=== PATIENT | male | born 1950 | race Caucasian/White ===

== ENCOUNTER → 2016-05-13 | Outpatient (REF) | payer MEDICARE, OTHER ==
[~2016-05-13] MED LIST: CALCTAB68 PO; CEPH2CAP PO; DILA100C PO; LISI20TA PO; LISINOPRIL-HCTZ PO; MULTTAB4 PO; NAPR500T2 PO; TRAV0.00 OU; ZEST20TA8 PO
[2016-05-13 14:53] LABS: MEAN CORPUSCULAR HEMOGLOBIN 32.5 pg (27.0-33.0); MEAN CORPUSCULAR HGB CONC 34.7 g/dl (32.0-36.5); MEAN CORPUSCULAR VOLUME 93.6 fl (80.0-96.0); RED CELL DISTRIBUTION WIDTH 11.6 % (11.5-14.5); WHITE BLOOD COUNT 12.6 K/mm3 (4.0-10.0)
[2016-05-13 15:06] LABS: ALBUMIN 3.4 GM/DL (3.2-5.2); ALBUMIN/GLOBULIN RATIO 0.92 (1.00-1.93); ALKALINE PHOSPHATASE 52 U/L (45-117); ALT/SGPT 25 U/L (12-78); ANION GAP 13 MEQ/L (8-16); AST/SGOT 26 U/L (15-37); BILIRUBIN,TOTAL 0.5 MG/DL (0.2-1.0); BLOOD UREA NITROGEN 51 MG/DL (7-18); CALCIUM LEVEL 9.1 MG/DL (8.8-10.2); CARBON DIOXIDE LEVEL 27 MEQ/L (21-32); CHLORIDE LEVEL 101 MEQ/L (98-107); CREATININE FOR GFR 1.09 MG/DL (0.70-1.30); GLOMERULAR FILTRATION RATE > 60.0 (>49); GLUCOSE, FASTING 86 MG/DL (80-110); POTASSIUM SERUM 4.1 MEQ/L (3.5-5.1); SODIUM LEVEL 141 MEQ/L (136-145); TOTAL PROTEIN 7.1 GM/DL (6.4-8.2)
== END ==
LOC: M SFHCPLAZ 14:42
PROVIDERS: ATTEND Nurse Practitioner Adult Health
DX: I50.30 Unspecified diastolic (congestive) heart failure (principal)

== ENCOUNTER → 2016-07-21 | Outpatient (REF) | payer MEDICARE, OTHER ==
[~2016-07-21] MED LIST changes: +COUM1TAB17 PO; +LOVE0.8I SC
[2016-07-21 19:58] LABS: ALBUMIN 3.7 GM/DL (3.2-5.2); ALKALINE PHOSPHATASE 58 U/L (45-117); ALT/SGPT 26 U/L (12-78); ANION GAP 7 MEQ/L (8-16); AST/SGOT 20 U/L (15-37); BILIRUBIN,TOTAL 0.5 MG/DL (0.2-1.0); BLOOD UREA NITROGEN 38 MG/DL (7-18); CARBON DIOXIDE LEVEL 28 MEQ/L (21-32); CHLORIDE LEVEL 101 MEQ/L (98-107); CREATININE FOR GFR 0.96 MG/DL (0.70-1.30); GLOMERULAR FILTRATION RATE > 60.0 (>49); GLUCOSE, FASTING 90 MG/DL (80-110); MAGNESIUM LEVEL 2.7 MG/DL (1.8-2.4); POTASSIUM SERUM 4.4 MEQ/L (3.5-5.1); SODIUM LEVEL 136 MEQ/L (136-145); TOTAL PROTEIN 7.4 GM/DL (6.4-8.2)
== END ==
LOC: M SFHCPLAZ 14:23
PROVIDERS: ATTEND Internal Medicine
DX: I10 Essential (primary) hypertension (principal)
CPT/HCPCS: 36415; 80053; 83735; G0463

== ENCOUNTER → 2016-08-09 | Outpatient (CLI) | payer MEDICARE, OTHER ==
--- NOTE | 2016-08-09 12:54 | REP ---
LEFT LOWER EXTREMITY DUPLEX DOPPLER VENOUS ULTRASOUND WITH EVALUATION FOR VENOUS REFLUX: Real-time compression and duplex Doppler evaluation of left lower extremity deep vein system is performed. Left common femoral, superficial femoral, and popliteal veins are fully compressible with transducer pressure and demonstrate normal spontaneous and phasic flow without evidence of deep venous thrombosis. Evaluation for venous reflux in the left lower extremity is performed. Small amount of reflux is seen in the left common femoral vein. There is an anterior accessory greater saphenous vein present without reflux. There is minimal reflux in the greater saphenous vein at the saphenofemoral junction with inspiration, AP diameter of that vessel 4 mm. No reflux is seen in the greater saphenous vein at the mid thigh level or at the knee, diameter at both of those levels 5 mm. There is no reflux in the superficial femoral vein, popliteal vein, or lesser saphenous vein. Less saphenous vein measures 5 mm. Signed by Jeff Corrales MD 08/09/2016 05:12 P
== END ==
LOC: M RAD 10:40
PROVIDERS: ATTEND Surgery
DX: I87.311 Chronic venous hypertension (idiopathic) with ulcer of right lower extremity (principal)

== ENCOUNTER 2016-08-11 13:32 | Emergency (ER) | payer MEDICARE, OTHER ==
[~2016-08-11] VITALS: Ht 170.2 cm; Wt 115.0 kg
[~2016-08-11 13:32] MED LIST changes: -COUM1TAB17 PO; -LOVE0.8I SC
[2016-08-11 16:18] LABS: BASO % 0.7 % (0.0-1.0); EOS # 0.4 K/mm3 (0.0-0.50); EOS % 5.5 % (0.0-3.0); LARGE UNSTAINED CELL # 0.1 K/mm3 (0.0-0.4); LARGE UNSTAINED CELL % 1.8 % (0.0-4.0); LYMPH # 1.1 K/mm3 (1.5-4.5); LYMPH % 14.6 % (24.0-44.0); MEAN CORPUSCULAR HEMOGLOBIN 33.1 pg (27.0-33.0); MEAN CORPUSCULAR HGB CONC 35.2 g/dl (32.0-36.5); MEAN CORPUSCULAR VOLUME 93.9 fl (80.0-96.0); MONO # 0.6 K/mm3 (0.0-0.8); MONO % 8.7 % (0.0-5.0); NEUTROPHILS # 4.7 K/mm3 (1.8-7.7); NEUTROPHILS % 68.7 % (36.0-66.0); PLATELET COUNT, AUTOMATED 257 k/mm3 (150-450); WHITE BLOOD COUNT 6.8 K/mm3 (4.0-10.0)
[2016-08-11 16:23] LABS: INR 1.05
[2016-08-11 16:45] LABS: ALBUMIN 3.3 GM/DL (3.2-5.2); ALKALINE PHOSPHATASE 68 U/L (45-117); ALT/SGPT 22 U/L (12-78); ANION GAP 7 MEQ/L (8-16); AST/SGOT 15 U/L (15-37); BILIRUBIN,TOTAL 0.4 MG/DL (0.2-1.0); BLOOD UREA NITROGEN 14 MG/DL (7-18); CALCIUM LEVEL 8.9 MG/DL (8.8-10.2); CARBON DIOXIDE LEVEL 27 MEQ/L (21-32); CHLORIDE LEVEL 110 MEQ/L (98-107); CREATININE FOR GFR 0.62 MG/DL (0.70-1.30); GLOMERULAR FILTRATION RATE > 60.0 (>49); GLUCOSE, FASTING 85 MG/DL (80-110); SODIUM LEVEL 144 MEQ/L (136-145); TOTAL PROTEIN 6.6 GM/DL (6.4-8.2)
[2016-08-11] MEDS ORDERED: ISOVUE-370 76% 100ML VIAL (Q9967) As Ordered ONE (16:50)
--- NOTE | 2016-08-11 17:51 | REP ---
CT ANGIOGRAM OF THE CHEST: TECHNIQUE: Axial contrast enhanced images from the thoracic inlet to the upper abdomen using 100 mL Isovue 370 intravenous contrast material with multiplanar reformations. Scattered fibrotic changes are seen in the lungs mainly inferiorly with somewhat confluent fibro atelectatic change at the left costophrenic angle. There is no CT evidence of pulmonary embolism. There is no evidence of thoracic aortic aneurysm or dissection. Heart does not appear to be significantly enlarged. There is no significant mediastinal or hilar adenopathy. There is no pleural or pericardial effusion. Calcified granulomas are seen in the liver and the spleen. There is a small cyst in the left lobe of the liver inferiorly. There is a small cyst in the upper pole of the right kidney. There are degenerative changes of the spine. IMPRESSION: No CT evidence of pulmonary embolism. Signed by Jeff Corrales MD 08/11/2016 07:50 P
[2016-08-11] MEDS ORDERED: LOVE0.8I SC (18:13)
[2016-08-11] MEDS ORDERED: COUM1TAB17 PO (18:13)
[2016-08-11] MEDS ORDERED: ENOXAPARIN 100MG/1ML SYRINGE (J1650) SC ONE (18:15)
[2016-08-11] MEDS ORDERED: ENOXAPARIN 120 MG/0.8 ML SYR (J1650) SC ONE (18:15)
[2016-08-11] MEDS ORDERED: WARFARIN SOD 5 MG TAB PO ONE (18:15)
[2016-08-11 19:03] VITALS: BP 145/85
== END 2016-08-11 19:07 | disposition home or self-care (01) ==
LOC: M ED 15:02
DX: I82.411 Acute embolism and thrombosis of right femoral vein (principal); E11.9 Type 2 diabetes mellitus without complications; I10 Essential (primary) hypertension; N40.0 Benign prostatic hyperplasia without lower urinary tract symptoms; K52.9 Noninfective gastroenteritis and colitis, unspecified; Z85.46 Personal history of malignant neoplasm of prostate; Z87.09 Personal history of other diseases of the respiratory system; Z88.0 Allergy status to penicillin; Z79.899 Other long term (current) drug therapy; I87.311 Chronic venous hypertension (idiopathic) with ulcer of right lower extremity
CPT/HCPCS: 36415; 71275; 80053; 81240; 81241; 84311; 85025; 85300; 85301; 85303; 85305; 85610; 85730; 86147; 93971; 96372; 99283; J1650; Q9967

== ENCOUNTER → 2016-08-11 | Outpatient (CLI) | payer MEDICARE, OTHER ==
--- NOTE | 2016-08-11 13:25 | REP ---
RIGHT LOWER EXTREMITY DUPLEX DOPPLER VENOUS ULTRASOUND: Real-time compression and duplex Doppler interrogation of the right lower extremity deep vein system is performed. Right common femoral demonstrates no thrombus. However, there is partial thrombosis of the mid femoral vein and also of the popliteal vein. There is complete thrombosis of the distal femoral vein. IMPRESSION: Occlusive thrombosis of the peripheral right femoral vein. Partial thrombosis of the mid right femoral vein and popliteal vein. Signed by Jeff Corrales MD 08/11/2016 07:48 P
== END ==
LOC: M RAD 10:56
PROVIDERS: ATTEND Surgery
DX: I87.311 Chronic venous hypertension (idiopathic) with ulcer of right lower extremity (principal); I82.411 Acute embolism and thrombosis of right femoral vein

== ENCOUNTER → 2016-10-13 | Outpatient (REF) | payer MEDICARE, OTHER ==
[~2016-10-13] MED LIST changes: +COUM1TAB17 PO; +LOVE0.8I SC
[2016-10-13 14:03] LABS: MEAN CORPUSCULAR HEMOGLOBIN 32.7 pg (27.0-33.0); MEAN CORPUSCULAR HGB CONC 35.2 g/dl (32.0-36.5); MEAN CORPUSCULAR VOLUME 92.9 fl (80.0-96.0); RED CELL DISTRIBUTION WIDTH 12.2 % (11.5-14.5); WHITE BLOOD COUNT 8.1 K/mm3 (4.0-10.0)
[2016-10-13 14:28] LABS: ALBUMIN 3.8 GM/DL (3.2-5.2); ALBUMIN/GLOBULIN RATIO 1.06 (1.00-1.93); ALKALINE PHOSPHATASE 56 U/L (45-117); ALT/SGPT 23 U/L (12-78); ANION GAP 8 MEQ/L (8-16); AST/SGOT 19 U/L (15-37); BILIRUBIN,TOTAL 0.4 MG/DL (0.2-1.0); BLOOD UREA NITROGEN 17 MG/DL (7-18); CALCIUM LEVEL 9.3 MG/DL (8.8-10.2); CARBON DIOXIDE LEVEL 27 MEQ/L (21-32); CHLORIDE LEVEL 108 MEQ/L (98-107); CREATININE FOR GFR 0.62 MG/DL (0.70-1.30); GLOMERULAR FILTRATION RATE > 60.0 (>49); GLUCOSE, FASTING 76 MG/DL (80-110); MAGNESIUM LEVEL 2.4 MG/DL (1.8-2.4); POTASSIUM SERUM 4.2 MEQ/L (3.5-5.1); SODIUM LEVEL 143 MEQ/L (136-145); TOTAL PROTEIN 7.4 GM/DL (6.4-8.2)
== END ==
LOC: M SFHCPLAZ 11:39
PROVIDERS: ATTEND Internal Medicine
DX: G47.30 Sleep apnea, unspecified (principal); I10 Essential (primary) hypertension; E66.01 Morbid (severe) obesity due to excess calories; G40.909 Epilepsy, unspecified, not intractable, without status epilepticus; Z79.899 Other long term (current) drug therapy; E78.00 Pure hypercholesterolemia, unspecified; Z86.718 Personal history of other venous thrombosis and embolism; M19.90 Unspecified osteoarthritis, unspecified site; M85.80 Other specified disorders of bone density and structure, unspecified site; H40.9 Unspecified glaucoma; Z80.0 Family history of malignant neoplasm of digestive organs; Z23 Encounter for immunization
CPT/HCPCS: 80053; 83735; 85027; G0463

== ENCOUNTER 2016-10-22 12:52 | Emergency (ER) | payer MEDICARE, OTHER ==
[~2016-10-22] VITALS: Ht 165.1 cm; Wt 117.9 kg
[2016-10-22 12:53] VITALS: BP 135/61
[2016-10-22] MEDS ORDERED: RABIES VACCINE HUMAN 2.5 INTERNATIONAL UNITS/ML VIAL (90675) IM ONE (14:30)
== END 2016-10-22 14:37 | disposition home or self-care (01) ==
LOC: M ED 12:52
DX: Z20.3 Contact with and (suspected) exposure to rabies (principal); Z88.0 Allergy status to penicillin; Z79.899 Other long term (current) drug therapy; Z79.01 Long term (current) use of anticoagulants

== ENCOUNTER 2016-10-25 11:26 | Emergency (ER) | payer MEDICARE, OTHER ==
[~2016-10-25] VITALS: Ht 165.1 cm; Wt 120.4 kg
[2016-10-25 11:47] VITALS: BP 141/66
[2016-10-25] MEDS ORDERED: RABIES VACCINE HUMAN 2.5 INTERNATIONAL UNITS/ML VIAL (90675) IM ONE (14:00)
== END 2016-10-25 14:37 | disposition home or self-care (01) ==
LOC: M ED 11:26
DX: Z20.3 Contact with and (suspected) exposure to rabies (principal); J45.909 Unspecified asthma, uncomplicated; I10 Essential (primary) hypertension; R56.9 Unspecified convulsions; Z88.0 Allergy status to penicillin; Z79.899 Other long term (current) drug therapy

== ENCOUNTER → 2017-01-27 | Outpatient (REF) | payer MEDICARE, OTHER ==
[2017-01-27 13:27] LABS: ALBUMIN 3.7 GM/DL (3.2-5.2); ALBUMIN/GLOBULIN RATIO 1.09 (1.00-1.93); ALKALINE PHOSPHATASE 55 U/L (45-117); ALT/SGPT 22 U/L (12-78); ANION GAP 7 MEQ/L (8-16); AST/SGOT 15 U/L (7-37); BILIRUBIN,TOTAL 0.5 MG/DL (0.2-1.0); BLOOD UREA NITROGEN 16 MG/DL (7-18); CALCIUM LEVEL 9.1 MG/DL (8.8-10.2); CARBON DIOXIDE LEVEL 29 MEQ/L (21-32); CHLORIDE LEVEL 106 MEQ/L (98-107); CHOLESTEROL LEVEL 203 MG/DL (<200); CREATININE FOR GFR 0.83 MG/DL (0.70-1.30); GLOMERULAR FILTRATION RATE > 60.0 (>49); GLUCOSE, FASTING 84 MG/DL (80-110); MAGNESIUM LEVEL 2.3 MG/DL (1.8-2.4); POTASSIUM SERUM 4.1 MEQ/L (3.5-5.1); SODIUM LEVEL 142 MEQ/L (136-145); TOTAL PROTEIN 7.1 GM/DL (6.4-8.2); TRIGLYCERIDES LEVEL 65 MG/DL (<150)
== END ==
LOC: M SFHCPLAZ 09:00
PROVIDERS: ATTEND Internal Medicine
DX: I10 Essential (primary) hypertension (principal); E78.00 Pure hypercholesterolemia, unspecified

== ENCOUNTER 2017-03-24 10:17 | Day surgery (SDC) | payer MEDICARE, OTHER ==
[2017-03-24] MEDS: NS 1,000 ML IV (10:45)
[2017-03-24] MEDS ORDERED: PROPOFOL 200 MG/20 ML VIAL As Ordered ×2 (11:16→11:33)
[2017-03-24] MEDS ORDERED: LIDOCAINE 2% INJ 100 MG/5 ML SDV (FOR ANES.) As Ordered ×2 (11:17→11:25)
== END 2017-03-24 12:22 | disposition home or self-care (01) ==
LOC: M OPP 10:17
DX: Z12.11 Encounter for screening for malignant neoplasm of colon (principal); Z80.0 Family history of malignant neoplasm of digestive organs; Z86.010 Personal history of colon polyps; D12.5 Benign neoplasm of sigmoid colon; K57.30 Diverticulosis of large intestine without perforation or abscess without bleeding; K64.8 Other hemorrhoids; I10 Essential (primary) hypertension; M19.90 Unspecified osteoarthritis, unspecified site; M81.0 Age-related osteoporosis without current pathological fracture; R56.9 Unspecified convulsions; Z86.73 Personal history of transient ischemic attack (TIA), and cerebral infarction without residual deficits; Z86.69 Personal history of other diseases of the nervous system and sense organs; J45.909 Unspecified asthma, uncomplicated; G47.30 Sleep apnea, unspecified; R06.83 Snoring; N40.1 Benign prostatic hyperplasia with lower urinary tract symptoms; Z88.0 Allergy status to penicillin; Z91.018 Allergy to other foods; Z79.82 Long term (current) use of aspirin; Z79.899 Other long term (current) drug therapy
CPT/HCPCS: 45385

== ENCOUNTER → 2017-07-27 | Outpatient (REF) | payer MEDICARE, OTHER ==
[2017-07-27 21:58] LABS: ALT/SGPT 26 U/L (12-78); ANION GAP 7 MEQ/L (8-16); AST/SGOT 22 U/L (7-37); BLOOD UREA NITROGEN 14 MG/DL (7-18); CALCIUM LEVEL 8.6 MG/DL (8.8-10.2); CARBON DIOXIDE LEVEL 27 MEQ/L (21-32); CHLORIDE LEVEL 108 MEQ/L (98-107); CREATININE FOR GFR 0.72 MG/DL (0.70-1.30); GLOMERULAR FILTRATION RATE > 60.0 (>49); GLUCOSE, FASTING 113 MG/DL (70-100); POTASSIUM SERUM 4.3 MEQ/L (3.5-5.1); SODIUM LEVEL 142 MEQ/L (136-145)
[2017-07-27 21:59] LABS: ALBUMIN 3.6 GM/DL (3.2-5.2); ALBUMIN/GLOBULIN RATIO 1.06 (1.00-1.93); ALKALINE PHOSPHATASE 63 U/L (45-117); BILIRUBIN,TOTAL 0.3 MG/DL (0.2-1.0); MAGNESIUM LEVEL 2.4 MG/DL (1.8-2.4)
[2017-07-27 22:37] LABS: HEMATOCRIT 44.1 % (42.0-52.0); HEMOGLOBIN 15.3 g/dl (13.5-17.5); MEAN CORPUSCULAR HEMOGLOBIN 32.3 pg (27.0-33.0); MEAN CORPUSCULAR HGB CONC 34.7 g/dl (32.0-36.5); PLATELET COUNT, AUTOMATED 264 10^3/uL (150-450); RED BLOOD COUNT 4.74 10^6/uL (4.30-6.10); WHITE BLOOD COUNT 5.3 10^3/uL (4.0-10.0)
[2017-07-28 14:36] LABS: TOTAL 25(OH) VITAMIN D 21.1 NG/ML (30.0-100.0)
== END ==
LOC: M SFHCPLAZ 12:47
DX: Z79.899 Other long term (current) drug therapy (principal); I10 Essential (primary) hypertension; M85.80 Other specified disorders of bone density and structure, unspecified site
CPT/HCPCS: 83735

== ENCOUNTER → 2018-01-06 | Outpatient (REF) | payer MEDICARE, OTHER ==
[2018-01-06 13:02] LABS: ALBUMIN 3.7 GM/DL (3.2-5.2); ALBUMIN/GLOBULIN RATIO 1.12 (1.00-1.93); ALKALINE PHOSPHATASE 61 U/L (45-117); ALT/SGPT 24 U/L (12-78); ANION GAP 7 MEQ/L (8-16); AST/SGOT 17 U/L (7-37); BILIRUBIN,TOTAL 0.4 MG/DL (0.2-1.0); BLOOD UREA NITROGEN 15 MG/DL (7-18); CALCIUM LEVEL 9.4 MG/DL (8.8-10.2); CARBON DIOXIDE LEVEL 27 MEQ/L (21-32); CHLORIDE LEVEL 107 MEQ/L (98-107); CHOLESTEROL LEVEL 197 MG/DL (<200); CHOLESTEROL RISK RATIO 2.525 (<5); CREATININE FOR GFR 0.66 MG/DL (0.70-1.30); GLOMERULAR FILTRATION RATE > 60.0 (>49); GLUCOSE, FASTING 94 MG/DL (70-100); HDL CHOLESTEROL 78 MG/DL (>40); LDL CHOLESTEROL 103 MG/DL (<100); MAGNESIUM LEVEL 2.3 MG/DL (1.8-2.4); NON-HDL-C 119 MG/DL; POTASSIUM SERUM 4.2 MEQ/L (3.5-5.1); SODIUM LEVEL 141 MEQ/L (136-145); TRIGLYCERIDES LEVEL 79 MG/DL (<150)
[2018-01-06 14:19] LABS: TOTAL 25(OH) VITAMIN D 39.7 NG/ML (30.0-100.0)
== END ==
LOC: M SFHCPLAZ 09:22
DX: I10 Essential (primary) hypertension (principal); E78.00 Pure hypercholesterolemia, unspecified; M85.80 Other specified disorders of bone density and structure, unspecified site; Z79.899 Other long term (current) drug therapy
CPT/HCPCS: 83735

== ENCOUNTER → 2018-07-11 | Outpatient (REF) | payer MEDICARE, OTHER ==
[~2018-07-11] MED LIST changes: +ASPI81TA26 PO; +FURO40TA2 PO
[2018-07-11 16:16] LABS: HEMATOCRIT 43.3 % (42.0-52.0); HEMOGLOBIN 15.1 g/dl (13.5-17.5); MEAN CORPUSCULAR HEMOGLOBIN 33.5 pg (27.0-33.0); MEAN CORPUSCULAR HGB CONC 34.9 g/dl (32.0-36.5); PLATELET COUNT, AUTOMATED 227 10^3/uL (150-450); RED BLOOD COUNT 4.51 10^6/uL (4.30-6.10)
[2018-07-11 16:18] LABS: ALBUMIN 3.6 GM/DL (3.2-5.2); ALT/SGPT 24 U/L (12-78); BILIRUBIN,TOTAL 0.3 MG/DL (0.2-1.0); BLOOD UREA NITROGEN 18 MG/DL (7-18); CALCIUM LEVEL 8.4 MG/DL (8.8-10.2); CARBON DIOXIDE LEVEL 27 MEQ/L (21-32); CHLORIDE LEVEL 113 MEQ/L (98-107); CREATININE FOR GFR 0.71 MG/DL (0.70-1.30); GLOMERULAR FILTRATION RATE > 60.0 (>49); GLUCOSE, FASTING 131 MG/DL (70-100); MAGNESIUM LEVEL 2.3 MG/DL (1.8-2.4); SODIUM LEVEL 145 MEQ/L (136-145)
== END ==
LOC: M SFHCPLAZ 14:31
PROVIDERS: ATTEND Internal Medicine
DX: I10 Essential (primary) hypertension (principal); I87.2 Venous insufficiency (chronic) (peripheral); G47.30 Sleep apnea, unspecified; M19.90 Unspecified osteoarthritis, unspecified site; Z79.899 Other long term (current) drug therapy; Z86.718 Personal history of other venous thrombosis and embolism

== ENCOUNTER → 2018-09-05 | Outpatient (REF) | payer MEDICARE, OTHER ==
[2018-09-05 13:51] LABS: TOTAL PROTEIN 7.1 GM/DL (6.4-8.2)
[2018-09-05 13:57] LABS: FOLATE 17.6 NG/ML; VITAMIN B12 LEVEL 452 PG/ML
[2018-09-06 11:45] LABS: ALBUMIN % 57.7 % (55.8-66.1); ALPHA-1-GLOBULIN % 5.3 % (2.9-4.9); ALPHA-2-GLOBULINS % 11.9 % (7.1-11.8); BETA-1-GLOBULINS % 5.7 % (4.7-7.2); BETA-2-GLOBULINS % 5.8 % (3.2-6.5); GAMMA GLOBULIN % 13.6 % (11.1-18.8)
[2018-09-06 11:46] LABS: ALPHA-1-GLOBULINS 0.38 GM/DL (0.17-0.41); ALPHA-2-GLOBULINS 0.84 GM/DL (0.42-0.99); BETA-2-GLOBULINS 0.41 GM/DL (0.19-0.55); GAMMA GLOBULINS 0.97 GM/DL (0.65-1.58)
[2018-09-09 00:06] LABS: CERULOPLASMIN 31.6 mg/dL (16.0-31.0); VITAMIN B1 LEVEL WHOLE BLOOD 142.3 nmol/L (66.5-200.0); VITAMIN B6,PYRIDOXAL PHOSPHATE 49.3 ug/L (5.3-46.7); VITAMIN E(ALPHA TOCOPHEROL) 15.7 mg/L (9.0-29.0); VITAMIN E(GAMMA TOCOPHEROL) 2.1 mg/L (0.5-4.9)
== END ==
LOC: M LABNEURO 10:25
PROVIDERS: ATTEND Psychiatry & Neurology Neurology
DX: G62.9 Polyneuropathy, unspecified (principal); E53.8 Deficiency of other specified B group vitamins; E51.9 Thiamine deficiency, unspecified

== ENCOUNTER 2018-12-05 03:09 | Emergency (ER) | payer MEDICARE, OTHER ==
[~2018-12-05] VITALS: Ht 162.6 cm; Wt 104.0 kg
[2018-12-05 05:32] VITALS: BP 145/78
--- NOTE | 2018-12-05 07:57 | REP ---
Left tibia-fibula four views: On the lateral view I suspect there is an a avulsion at the upper pole of the patella. No other fractures are identified. I suspect there is osteoarthritis of the tarsal ossicles. Electronically Signed by Jeff Silva MD 12/05/2018 07:48 A
--- NOTE | 2018-12-05 07:58 | REP ---
Left knee two views: I suspect there is an avulsion at the upper pole of the patella. This should be correlated with clinical point tenderness. Alternatively, this could represent calcification of the quadriceps tendon. Electronically Signed by Jeff Silva MD 12/05/2018 07:50 A
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
--- NOTE | 2018-12-05 11:19 | ED PDOC ---
Post-Departure Follow-Up ncog faxed formal report of left knee film for fu Andrea Reeves MD Dec 05, 2018 11:19
[2018-12-06] MEDS ORDERED: wheelchair (09:15)
[2018-12-06] MEDS ORDERED: CARB10TA6 PO (14:15)
[2018-12-06] MEDS ORDERED: TRAV04OPD OU (18:35)
[2018-12-06] MEDS ORDERED: PHEN100C PO (18:35)
[2018-12-06] MEDS ORDERED: MULT-40 PO (18:35)
[2018-12-06] MEDS ORDERED: CALCCAP4 PO (18:35)
[2018-12-06] MEDS ORDERED: LISI-538 PO (18:35)
[2018-12-06] MEDS ORDERED: CARB25TA9 PO (18:35)
== END 2018-12-05 05:58 | disposition home or self-care (01) ==
LOC: M ED 03:09
DX: S80.02XA Contusion of left knee, initial encounter (principal); W01.0XXA Fall on same level from slipping, tripping and stumbling without subsequent striking against object, initial encounter; Y92.009 Unspecified place in unspecified non-institutional (private) residence as the place of occurrence of the external cause; R56.9 Unspecified convulsions; I10 Essential (primary) hypertension; G20 Parkinson's disease; E78.5 Hyperlipidemia, unspecified; Z88.0 Allergy status to penicillin; Z91.018 Allergy to other foods; Z79.899 Other long term (current) drug therapy

== ENCOUNTER 2018-12-06 13:52 | Inpatient (IN) | payer MEDICARE, OTHER ==
[~2018-12-06] VITALS: Ht 167.6 cm; Wt 101.0 kg
[~2018-12-06 13:52] MED LIST changes: +wheelchair
[2018-12-06] MEDS ORDERED: CARB10TA6 PO (14:15)
--- NOTE | 2018-12-06 15:18 | REP ---
CHEST X-RAY: Two views. HISTORY: Weakness. COMPARISON STUDY: October 24, 2006. FINDINGS: There is a dextroconvex curvature in the mid thoracic spine unchanged. Heart is not enlarged. Lungs are symmetrically aerated and free of infiltrate. A zone of linear fibrosis is seen along the course of the minor fissure unchanged from the 2006 study. Pleural angles are sharp. There are degenerative changes in the thoracic spine and aorta. IMPRESSION: Scoliosis. Linear fibrosis on the right. Otherwise no acute disease. Electronically Signed by Chace Raman MD 12/06/2018 03:53 P
--- NOTE | 2018-12-06 15:25 | REP ---
CT lumbar spine without contrast: History: Vertebral point tenderness after a fall. Findings: Incidental note is made of ankylosis of the sacroiliac joints bilaterally. Question ankylosing spondylitis. Lumbar vertebral body heights are preserved. No fracture or collapse is seen. Alignment is normal. There is degenerative disc disease with prominent anterior spurring at L3-4, L2-3 and L1-2. There are vacuum phenomenon at L1-2 and L2-3 discs as well as at the T11-12 disc. There is a Schmorl's node along the superior endplate of the L1 vertebral body. There are Schmorl's nodes on either side of the L2-3 disc. No transverse process or other posterior element fracture is seen. The spinous processes abut one another in the lumbar spine with some reactive sclerosis. There is no evidence of spondylolysis or spondylolisthesis. No focal disc protrusion is seen. Impression: Degenerative spondylosis changes in the lumbar spine with degenerative disc disease most pronounced at L2-3. No fracture or collapse is seen. Fusion of the SI joints, question ankylosing spondylitis. Electronically Signed by Chace Raman MD 12/06/2018 03:56 P
[2018-12-06 16:31] LABS: BASO # 0.1 10^3/uL (0.0-0.2); BASO % 0.5 % (0.0-1.0); EOS # 0.1 10^3/uL (0.0-0.5); EOS % 0.5 % (0.0-3.0); HEMATOCRIT 45.9 % (42.0-52.0); HEMOGLOBIN 15.8 g/dl (13.5-17.5); LYMPH # 0.5 10^3/uL (1.5-5.0); MEAN CORPUSCULAR HEMOGLOBIN 31.7 pg (27.0-33.0); MEAN CORPUSCULAR HGB CONC 34.4 g/dl (32.0-36.5); MEAN CORPUSCULAR VOLUME 92.2 fl (80.0-96.0); MONO # 1.4 10^3/uL (0.0-0.8); MONO % 12.3 % (0.0-5.0); NEUTROPHILS # 9.2 10^3/uL (1.5-8.5); NEUTROPHILS % 82.3 % (36.0-66.0); PLATELET COUNT, AUTOMATED 271 10^3/uL (150-450); RED BLOOD COUNT 4.98 10^6/uL (4.30-6.10); WHITE BLOOD COUNT 11.2 10^3/uL (4.0-10.0)
--- NOTE | 2018-12-06 17:00 | REP ---
Bilateral lower extremity deep vein duplex ultrasound: The deep veins demonstrate normal compression, normal Doppler color flow and normal Doppler waveforms with respiration and augmentation from the popliteal veins to the common femoral veins bilaterally . 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 Impression: There is no deep vein thrombus in the right or left lower extremities. Electronically Signed by Jeff Silva MD 12/06/2018 04:52 P
[2018-12-06 17:09] LABS: ALBUMIN 3.3 GM/DL (3.2-5.2); ALT/SGPT 30 U/L (12-78); BILIRUBIN,DIRECT 0.3 MG/DL (0.0-0.2); BLOOD UREA NITROGEN 16 MG/DL (7-18); CARBON DIOXIDE LEVEL 29 MEQ/L (21-32); CHLORIDE LEVEL 107 MEQ/L (98-107); CREATININE FOR GFR 0.71 MG/DL (0.70-1.30); GLOMERULAR FILTRATION RATE > 60.0 (>49); GLUCOSE, FASTING 87 MG/DL (70-100); NT-PRO BNP 113 PG/ML (<125); POTASSIUM SERUM 3.9 MEQ/L (3.5-5.1); SODIUM LEVEL 142 MEQ/L (136-145); TOTAL PROTEIN 6.9 GM/DL (6.4-8.2)
[2018-12-06] MEDS ORDERED: PHEN100C PO (18:35)
[2018-12-06] MEDS ORDERED: MULT-40 PO (18:35)
[2018-12-06] MEDS ORDERED: CARB25TA9 PO (18:35)
[2018-12-06] MEDS ORDERED: TRAV04OPD OU (18:35)
[2018-12-06] MEDS ORDERED: CALCCAP4 PO (18:35)
[2018-12-06] MEDS ORDERED: LISI-538 PO (18:35)
[2018-12-06 18:45] LABS: ERYTHROCYTE SEDIMENTATION RATE 31 mm/hr (0-20)
[2018-12-06] MEDS ORDERED: ACETAMINOPHEN TAB 650MG DOSE (2X325MG) PO PRN (22:45)
[2018-12-06] MEDS ORDERED: MAALOX 30 ML SUSP *UDC PO PRN (22:45)
[2018-12-06] MEDS ORDERED: MOM 30ML SUSPENSION UDC PO PRN (22:45)
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
[2018-12-07] VITALS (8 sets, daily range): BP systolic 89–131; BP diastolic 48–81
[2018-12-07] MEDS: DOCUSATE SODIUM 100 MG CAP PO SCH ×3 (00:59→20:53)
[2018-12-07] MEDS: PHENYTOIN ER 100 MG CAP PO SCH ×5 (01:00→20:53)
[2018-12-07] MEDS: LATANOPROST 0.005% OPHTH SOLN 2.5 ML OU SCH ×2 (01:00→21:26)
[2018-12-07] MEDS: SINEMET 25-100 MG TAB PO SCH ×5 (01:00→20:53)
[2018-12-07] MEDS ORDERED: NYSTATIN 100,000 UNITS/GM TOPICAL PWD 15 GM TOP PRN (04:30)
[2018-12-07] MEDS ORDERED: FLUBLOK(EGG FREE)(QUAD)INFLUENZA VACC 0.5ML SYRINGE (90682)18YRS&OLDER IM ONE (09:00)
[2018-12-07] MEDS ORDERED: PREVNAR 13 VACCINE SYRINGE (CPT CODE:90670) IM ONE (09:00)
[2018-12-07] MEDS: FUROSEMIDE 40 MG TAB PO SCH (09:22)
[2018-12-07] MEDS: LISINOPRIL 20 MG TAB PO SCH (09:23)
[2018-12-07] MEDS: ENOXAPARIN 40 MG/0.4 ML SYRINGE (J1650) SC SCH (09:23)
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
[2018-12-07 15:34] LABS: HEMATOCRIT 37.8 % (42.0-52.0); HEMOGLOBIN 13.1 g/dl (13.5-17.5); MEAN CORPUSCULAR HEMOGLOBIN 32.2 pg (27.0-33.0); MEAN CORPUSCULAR HGB CONC 34.7 g/dl (32.0-36.5); MEAN CORPUSCULAR VOLUME 92.9 fl (80.0-96.0); PLATELET COUNT, AUTOMATED 241 10^3/uL (150-450); RED BLOOD COUNT 4.07 10^6/uL (4.30-6.10); WHITE BLOOD COUNT 9.1 10^3/uL (4.0-10.0)
--- NOTE | 2018-12-07 15:53 | CR ---
DATE OF CONSULTATION: 12/06/2018 The patient seen and examined. I discussed the case with one of our physian assistants (PA) Cherise Lugo who saw the patient a short while ago. The patient was admitted with status post fall with some lower extremity discomfort. He has longstanding ulcerations in his lower legs, probably related to some chronic venous stasis changes. He had x-rays obtained of his left femur, left knee and left hip tibia. We were asked to evaluate him for possible patella fracture. He says that at this point he is only having some discomfort in his right lower extremity. His exam demonstrates that he has some tenderness to a mild degree over his right proximal tibia and some irritability of range of motion of his right knee. He has no erythema of his knees, probably some mild effusions of both sides. He is able to actively fire his quads bilaterally and has no palpable defect of his quadriceps tendon bilaterally. No obvious disruption of the extensor mechanism. The only thing I would add is that is think we should x-ray his right tibia/fibula just to make sure he has no fracture there. Again it looks like only the left side has been x-rayed so far. I think he can be weightbearing as tolerated if we can get him a knee immobilizer. I think for now we should do this on the left side. For one that is the area where there was concern about some fragmentation of the superior pole of his patella, but also his skin is in much better condition on this side. Further recommendations to follow depending upon what shows up on the right tibia/fibula x-ray.
--- NOTE | 2018-12-07 16:30 | IPNPDOC ---
Text Note Date of Service The patient was seen on 12/07/18. NOTE SUBJECTIVE: The patient is awake, alert, and conversant. He does not appear to be in any remarkable distress. Patient is admitted with concern for left patellar fracture. Patient has underlying history of Parkinson's disease, obstructive sleep apnea and seizure disorder. OBJECTIVE: Please see vital signs below--patient has had some mild tachycardia and mild hypotension for which he is otherwise asymptomatic. Physical exam: General: The patient is nontoxic appearing, is at bedside. HENT: Neck is supple with no adenopathy or thyromegaly, oral mucosa is moist. Cardiovascular: Regular rate and rhythm with a normal S1 and S2 and no appreciable murmur. Respiratory: He is clear to auscultation. He generally has shallow respirations, but does not exhibit any increased respiratory effort. Abdomen: Soft, nontender, nondistended but with significant central obesity Extremities: Patient has at least 2+ nonpitting edema, there are signs of recent edema reduction as the skin to both lower legs is quite wrinkled. He does have remarkable erythema to his lower legs, greater on the right than on the left. He does have some drainage to his legs. Again, the greater on the right than on the left. This is mildly purulent, with primarily serous drainage. The legs are not remarkably warm to touch. Feet are fully spared. Pedal pulses are palpable. Toenails are thickened. Neuro: Patient does not exhibit distinct focal neuromotor deficit, although he is nonambulatory Psych: Patient is fairly apathetic about his overall clinical condition ASSESSMENT/PLAN: 1. Left patellar fracture. Films reviewed and case briefly discussed with the orthopedic service. At most, the patient may have a left patellar avulsion; fracture is not readily apparent. Recommendation is for knee immobilizer. Any sort of surgical intervention is likely unnecessary. Ideally, the patient's mobility orders would be weightbearing as tolerated. In reality, the patient has not walked for at least a few years. The patient essentially scoots around the house on a seated walker. His states he does not have a wheelchair because she is unable to lift it and move it around. He falls off of the walker a lot. She also cannot lift him. She has requested placement for the patient. 2. Possible lower extremity cellulitis. Patient appears to have some chronic lower extremity skin changes associated with vascular insufficiency. He is having some drainage. We are hopeful of having him seen by wound care services. I will have him placed on antibiotics; indications are minimal. The patient does not have fever or leukocytosis. 3. Obstructive sleep apnea. Patient has a history of such and is supposed to be making use of BiPAP at night. He apparently has moved and has not had his BiPAP molder machine. His is going to bring in his BiPAP machine and he will be placed on it at night by our respiratory therapy services. 4. Parkinson's disease, seizure disorder. The patient will be continued on his carbidopa levodopa and phenytoin respectively. VS,Fishbone, I+O VS, Fishbone, I+O Laboratory Tests 12/07/18 15:23 Red Blood Count 4.07 L, Mean Corpuscular Volume 92.9, Mean Corpuscular Hemoglobin 32.2, Mean Corpuscular Hemoglobin Concent 34.7, Red Cell Distribution Width 12.1 Vital Signs Date Time Temp Pulse Resp B/P (MAP) Pulse Ox O2 Delivery O2 Flow Rate FiO2 12/07/18 15:01 108 28 90/52 (65) 12/07/18 14:00 98.6 92 12/07/18 00:20 Room Air I&O- Last 24 Hours up to 6 AM 12/07/18 06:00 Intake Total 0 ml Balance 0 ml AXEL LEYVA MD Dec 07, 2018 16:30
--- NOTE | 2018-12-07 17:04 | REP ---
Right tib-fib series: Four views. History: Rule out fracture. Pain in the right leg. Findings: There is diffuse osteopenia. Moderate osteoarthritic narrowing and sclerosis and spur formation are seen in the lateral tibiofemoral compartment of the knee. There is patellofemoral narrowing and spur formation as well. Calcification is seen in the distal quadriceps tendon just above the patella. There is no evidence of fracture or subluxation. There is diffuse soft tissue swelling. Impression: No fractures seen. Moderate osteoarthritis at the knee. Electronically Signed by Chace Raman MD 12/07/2018 04:55 P
[2018-12-07] MEDS: DOXYCYCLINE HYCLATE 100 MG in D5W MINI-BAG PLUS 100 ML IV SCH (17:24)
[2018-12-08] MEDS: DOXYCYCLINE HYCLATE 100 MG in D5W MINI-BAG PLUS 100 ML IV SCH ×2 (04:58→17:41)
[2018-12-08 06:00] VITALS: BP 126/72
[2018-12-08 06:29] LABS: HEMATOCRIT 39.3 % (42.0-52.0); HEMOGLOBIN 13.3 g/dl (13.5-17.5); MEAN CORPUSCULAR HEMOGLOBIN 31.2 pg (27.0-33.0); MEAN CORPUSCULAR HGB CONC 33.8 g/dl (32.0-36.5); MEAN CORPUSCULAR VOLUME 92.3 fl (80.0-96.0); PLATELET COUNT, AUTOMATED 224 10^3/uL (150-450); RED BLOOD COUNT 4.26 10^6/uL (4.30-6.10); WHITE BLOOD COUNT 8.4 10^3/uL (4.0-10.0)
[2018-12-08 06:51] LABS: BLOOD UREA NITROGEN 15 MG/DL (7-18); CALCIUM LEVEL 8.2 MG/DL (8.8-10.2); CARBON DIOXIDE LEVEL 27 MEQ/L (21-32); CHLORIDE LEVEL 107 MEQ/L (98-107); CREATININE FOR GFR 0.59 MG/DL (0.70-1.30); GLOMERULAR FILTRATION RATE > 60.0 (>49); GLUCOSE, FASTING 99 MG/DL (70-100); PHENYTOIN (DILANTIN) 4.2 UG/ML (10.0-20.0); POTASSIUM SERUM 3.6 MEQ/L (3.5-5.1); SODIUM LEVEL 141 MEQ/L (136-145)
[2018-12-08 08:00] VITALS: BP 105/58
[2018-12-08] MEDS: FUROSEMIDE 40 MG TAB PO SCH (08:18)
[2018-12-08] MEDS: PHENYTOIN ER 100 MG CAP PO SCH ×4 (08:18→22:02)
[2018-12-08] MEDS: ENOXAPARIN 40 MG/0.4 ML SYRINGE (J1650) SC SCH (08:18)
[2018-12-08] MEDS: DOCUSATE SODIUM 100 MG CAP PO SCH ×2 (08:18→21:00)
[2018-12-08] MEDS: SINEMET 25-100 MG TAB PO SCH ×4 (08:19→22:02)
[2018-12-08] MEDS: LISINOPRIL 20 MG TAB PO SCH ×2 (08:20→09:00)
[2018-12-08 14:00] VITALS: BP 107/58
--- NOTE | 2018-12-08 16:51 | IPNPDOC ---
Text Note Date of Service The patient was seen on 12/08/18. NOTE SUBJECTIVE: Mr. Ayala is in remarkably good spirits today. He does not have any distress. He is admitted with concern for possible left patellar fracture or other injury. He has underlying history of Parkinson's disease. OBJECTIVE: Please see vital signs below Physical exam: General: The patient is nontoxic appearing. HENT: Neck is supple with no adenopathy or thyromegaly, oral mucosa is moist. Cardiovascular: Regular rate and rhythm with a normal S1 and S2 and no frank reciable murmur. Respiratory: He is clear to auscultation. He generally has shallow respirations, but does not exhibit any increased respiratory effort. Abdomen: Soft, nontender, nondistended but with significant central obesity Extremities: Patient has at least 2+ nonpitting edema, there are signs of recent edema reduction as the skin to both lower legs is quite wrinkled. He does have decreased erythema to his lower legs, greater on the right than on the left. He does have some drainage to his legs. Again, the greater on the right than on the left. This is mildly purulent, with primarily serous drainage. The legs are not remarkably warm to touch. Feet are fully spared. Pedal pulses are palpable. Toenails are thickened. Neuro: Patient does not exhibit distinct focal neuromotor deficit, although he is nonambulatory ASSESSMENT/PLAN: 1. Left patellar fracture. Films reviewed and case briefly discussed with the orthopedic service. At most, the patient may have a left patellar avulsion; fracture is not readily apparent. Recommendation is for knee immobilizer. Any sort of surgical intervention is likely unnecessary. PT assessment has been requested for placement. 2. Possible lower extremity cellulitis. Patient appears to have some chronic lower extremity skin changes associated with vascular insufficiency. He is having some drainage. Patient has been seen by wound care services which we appreciate. I have placed him on antibiotics, although indications are minimal. The patient does not have fever, leukocytosis or elevated inflammatory indicators. 3. Obstructive sleep apnea. Patient has a history of such and is supposed to be making use of BiPAP at night. 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 His is going to bring in his BiPAP machine and he will be placed on it at night by our respiratory therapy services. 4. Parkinson's disease, seizure disorder. The patient will be continued on his carbidopa levodopa and phenytoin respectively. Phenytoin level is subtherapeutic by measurement, but otherwise appears effective as he has not had any seizure activity. VS,Fishbone, I+O VS, Fishbone, I+O Laboratory Tests 12/08/18 06:19 Red Blood Count 4.26 L, Mean Corpuscular Volume 92.3, Mean Corpuscular Hemoglobin 31.2, Mean Corpuscular Hemoglobin Concent 33.8, Red Cell Distribution Width 12.2, Calcium Level 8.2 L Vital Signs Date Time Temp Pulse Resp B/P (MAP) Pulse Ox O2 Delivery O2 Flow Rate FiO2 12/08/18 14:00 98.5 101 26 107/58 (74) 93 12/07/18 00:20 Room Air I&O- Last 24 Hours up to 6 AM 12/08/18 06:00 Intake Total 1955 ml Output Total 200 ml Balance 1755 ml AXEL LEYVA MD Dec 08, 2018 16:51
[2018-12-08 22:00] VITALS: BP 109/78
[2018-12-08] MEDS: LATANOPROST 0.005% OPHTH SOLN 2.5 ML OU SCH (22:02)
--- NOTE | 2018-12-09 02:25 | REPVR ---
PROCEDURE INFORMATION: Exam: XR Left Tibia and Fibula Exam date and time: 12/09/2018 1:11 AM Clinical history: 68 years old, male; Injury or trauma; Injury history: Fall; Initial encounter; Abrasion; Knee; Left; Additional info: To R/O possible lt patella FX in parkinson's PT w/ h/o falls TECHNIQUE: Imaging protocol: XR Left tibia and fibula. Views: 2 views. COMPARISON: CR Tibia, Fibula lower leg 12/07/2018 4:47 PM FINDINGS: Bones/joints: Mild degenerative arthrosis at the knee. No fracture or malalignment. 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 IMPRESSION: 1. No fracture or malalignment. 2. Osteoporosis. 3. 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 Electronically signed by: Vj Alexander On 12/09/2018 02:25:24 AM
--- NOTE | 2018-12-09 02:28 | REPVR ---
PROCEDURE INFORMATION: Exam: XR Left Knee Exam date and time: 12/09/2018 1:11 AM Clinical history: 68 years old, male; Other: Fall; Additional info: To R/O possible lt patella FX in parkinson's PT w/ h/o falls TECHNIQUE: Imaging protocol: XR Left knee. Views: 4 or more views. COMPARISON: CR Knee, Ap, Lat LEFT 12/05/2018 4:01 AM FINDINGS: Bones/joints: Bones are osteopenic. Mild degenerative arthrosis in the patellofemoral joint. No fracture or malalignment. 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 IMPRESSION: No fracture or malalignment. Electronically signed by: Vj Alexander On 12/09/2018 02:28:20 AM
[2018-12-09] MEDS: DOXYCYCLINE HYCLATE 100 MG in D5W MINI-BAG PLUS 100 ML IV SCH ×2 (05:23→17:59)
[2018-12-09 06:00] VITALS: BP 110/72
[2018-12-09] MEDS: SINEMET 25-100 MG TAB PO SCH ×4 (08:22→20:37)
[2018-12-09] MEDS: PHENYTOIN ER 100 MG CAP PO SCH ×4 (08:23→20:37)
[2018-12-09] MEDS: ENOXAPARIN 40 MG/0.4 ML SYRINGE (J1650) SC SCH (08:23)
[2018-12-09] MEDS: FUROSEMIDE 40 MG TAB PO SCH (08:23)
[2018-12-09] MEDS: DOCUSATE SODIUM 100 MG CAP PO SCH ×2 (08:23→20:37)
[2018-12-09] MEDS: LISINOPRIL 20 MG TAB PO SCH (08:26)
[2018-12-09 14:00] VITALS: BP 107/57
--- NOTE | 2018-12-09 18:09 | IPNPDOC ---
Text Note Date of Service The patient was seen on 12/09/18. NOTE SUBJECTIVE: Mr. Ayala does not have any distress. He is admitted with concern for possible left patellar fracture or other injury. He has underlying history of Parkinson's disease. OBJECTIVE: Please see vital signs below Physical exam: General: The patient is nontoxic appearing. HENT: Neck is supple with no adenopathy or thyromegaly, oral mucosa is moist. Cardiovascular: Regular rate and rhythm with a normal S1 and S2 and no appreciable murmur. Respiratory: He is clear to auscultation. He generally has shallow respirations, but does not exhibit any increased respiratory effort. Abdomen: Soft, nontender, nondistended but with significant central obesity Extremities: Patient has at least 2+ nonpitting edema, there are signs of recent edema reduction as the skin to both lower legs is quite wrinkled. He does have decreased erythema to his lower legs, greater on the right than on the left. He does have some drainage to his legs. Again, the greater on the right than on the left. This is mildly purulent, with primarily serous drainage. The legs are not remarkably warm to touch. Feet are fully spared. Pedal pulses are palpable. Toenails are thickened. Neuro: Patient does not exhibit distinct focal neuromotor deficit, although he is nonambulatory ASSESSMENT/PLAN: 1. Left patellar fracture. Films reviewed and case briefly discussed with the orthopedic service. At most, the patient may have a left patellar avulsion; fracture is not readily apparent. Recommendation is for knee immobilizer. Any sort of surgical intervention is likely unnecessary. PT assessment has been requested for placement. The patient is not at all safely mobile at home at baseline. 2. Possible lower extremity cellulitis. Patient appears to have some chronic lower extremity skin changes associated with vascular insufficiency. He is having some drainage. Patient has been seen by wound care services which we appreciate. I have placed him on antibiotics, although indications are minimal. The patient does not have fever, leukocytosis or elevated inflammatory indicators. 3. Obstructive sleep apnea. Patient has a history of such and is supposed to be making use of BiPAP at night. 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 4. Parkinson's disease, seizure disorder. The patient will be continued on his carbidopa levodopa and phenytoin respectively. Phenytoin level is subtherapeutic by measurement, but otherwise appears effective as he has not had any seizure activity. VS,Fishbone, I+O VS, Fishbone, I+O Vital Signs Date Time Temp Pulse Resp B/P (MAP) Pulse Ox O2 Delivery O2 Flow Rate FiO2 12/09/18 14:00 98.1 99 15 107/57 (74) 92 12/07/18 00:20 Room Air I&O- Last 24 Hours up to 6 AM 12/09/18 06:00 Intake Total 960 ml Output Total 400 ml Balance 560 ml AXEL LEYVA MD Dec 09, 2018 18:09
[2018-12-09 20:00] VITALS: BP 122/60
[2018-12-09] MEDS: LATANOPROST 0.005% OPHTH SOLN 2.5 ML OU SCH (20:38)
[2018-12-10] MEDS: DOXYCYCLINE HYCLATE 100 MG in D5W MINI-BAG PLUS 100 ML IV SCH ×2 (04:12→17:31)
[2018-12-10 06:00] VITALS: BP 124/66
[2018-12-10] MEDS: FUROSEMIDE 40 MG TAB PO SCH (08:48)
[2018-12-10] MEDS: ENOXAPARIN 40 MG/0.4 ML SYRINGE (J1650) SC SCH (08:48)
[2018-12-10] MEDS: SINEMET 25-100 MG TAB PO SCH ×4 (08:48→21:08)
[2018-12-10] MEDS: DOCUSATE SODIUM 100 MG CAP PO SCH ×2 (08:48→21:09)
[2018-12-10] MEDS: PHENYTOIN ER 100 MG CAP PO SCH ×4 (08:49→21:09)
[2018-12-10] MEDS: LISINOPRIL 20 MG TAB PO SCH (08:51)
[2018-12-10 14:00] VITALS: BP 108/72
--- NOTE | 2018-12-10 19:01 | IPNPDOC ---
Text Note Date of Service The patient was seen on 12/10/18. NOTE SUBJECTIVE: Mr. Ayala does not have any distress. He was admitted with concern for possible left patellar fracture or other injury. However, repeat imaging of his left knee does not show any sign of fracture. He has underlying history of Parkinson's disease. OBJECTIVE: Please see vital signs below Physical exam: General: The patient is nontoxic appearing. HENT: Neck is supple with no adenopathy or thyromegaly, oral mucosa is moist. Cardiovascular: Regular rate and rhythm with a normal S1 and S2 and no appre ciable murmur. Respiratory: He is clear to auscultation. He generally has shallow respirations, but does not exhibit any increased respiratory effort. Abdomen: Soft, nontender, nondistended but with significant central obesity Extremities: Patient has at least 2+ nonpitting edema, there are signs of recent edema reduction as the skin to both lower legs is quite wrinkled. He does have decreased erythema to his lower legs, greater on the right than on the left. There is minimal serous drainage. The legs are not remarkably warm to touch. Feet are fully spared. Pedal pulses are palpable. Toenails are thickened. Neuro: Patient does not exhibit distinct focal neuromotor deficit, although he is nonambulatory ASSESSMENT/PLAN: 1. Left patellar fracture. Films reviewed and case briefly discussed with the orthopedic service. Fracture is not readily apparent on repeat imaging. Recommendation is for knee immobilizer. Any sort of surgical intervention is unnecessary. PT assessment has been requested for placement. The patient is not at all safely mobile at home at baseline as he is not independently ambulatory at baseline 2. Possible lower extremity cellulitis. Patient appears to have some chronic lower extremity skin changes associated with vascular insufficiency. He is having some drainage. Patient has been seen by wound care services which we appreciate. I have placed him on antibiotics, although indications are minimal. The patient does not have fever, leukocytosis or elevated inflammatory indicators. 3. Obstructive sleep apnea. Patient has a history of such and is supposed to be making use of BiPAP at night. 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 His is going to bring in his BiPAP machine and he will be placed on it at night by our respiratory therapy services. 4. Parkinson's disease, seizure disorder. The patient will be continued on his carbidopa levodopa and phenytoin respectively. Phenytoin level is subtherapeutic by measurement, but otherwise appears effective as he has not had any seizure activity. VS,Fishbone, I+O VS, Fishbone, I+O Vital Signs Date Time Temp Pulse Resp B/P (MAP) Pulse Ox O2 Delivery O2 Flow Rate FiO2 12/10/18 14:00 99.3 59 20 108/72 (84) 94 12/07/18 00:20 Room Air I&O- Last 24 Hours up to 6 AM 12/10/18 06:00 Intake Total 1320 ml Output Total 1540 ml Balance -220 ml AXEL LEYVA MD Dec 10, 2018 19:01
[2018-12-10] MEDS: LATANOPROST 0.005% OPHTH SOLN 2.5 ML OU SCH (21:10)
[2018-12-10 22:00] VITALS: BP 123/63
[2018-12-11] MEDS: DOXYCYCLINE HYCLATE 100 MG in D5W MINI-BAG PLUS 100 ML IV SCH (04:21)
[2018-12-11 06:00] VITALS: BP 121/67
[2018-12-11] MEDS: PHENYTOIN ER 100 MG CAP PO SCH ×4 (09:02→20:22)
[2018-12-11] MEDS: FUROSEMIDE 40 MG TAB PO SCH (09:02)
[2018-12-11] MEDS: DOCUSATE SODIUM 100 MG CAP PO SCH ×2 (09:02→20:23)
[2018-12-11] MEDS: SINEMET 25-100 MG TAB PO SCH ×4 (09:02→20:22)
[2018-12-11] MEDS: LISINOPRIL 20 MG TAB PO SCH (09:02)
[2018-12-11] MEDS: ENOXAPARIN 40 MG/0.4 ML SYRINGE (J1650) SC SCH (09:02)
[2018-12-11 14:00] VITALS: BP 110/57
--- NOTE | 2018-12-11 19:16 | IPNPDOC ---
Text Note Date of Service The patient was seen on 12/11/18. NOTE SUBJECTIVE: Mr. Ayala does not have any distress. He was admitted with concern for possible left patellar fracture or other injury. However, repeat imaging of his left knee does not show any sign of fracture. He has underlying history of Parkinson's disease. OBJECTIVE: Please see vital signs below Physical exam: General: The patient is nontoxic appearing. He is seen while undergoing hygiene care by nursing staff. HENT: Neck is supple with no adenopathy or thyromegaly, oral mucosa is moist. Cardiovascular: Regular rate and rhythm with a normal S1 and S2 and no appreciable murmur. Respiratory: He is clear to auscultation. He generally has shallow respirations, but does not exhibit any increased respiratory effort. Abdomen: Soft, nontender, nondistended but with significant central obesity Extremities: Patient has 1+ nonpitting edema, there are signs of recent edema reduction as the skin to both lower legs is quite wrinkled. He does have decreased erythema to his lower legs, greater on the right than on the left. There is minimal serous drainage. The legs are not remarkably warm to touch. Some scaling and desquamation of the skin. Feet are fully spared. Pedal pulses are palpable. Toenails are thickened. : The patient also has an area of skin slough at the base of his right medial buttock. He then also has an area of callus-like skin at the base of his left medial buttock. These appear to be due to his relative immobility. Neuro: Patient does not exhibit distinct focal neuromotor deficit, although he is nonambulatory Skin: Skin has developed a pruritic maculopapular rash to his trunk and right leg of unclear etiology. ASSESSMENT/PLAN: 1. Left patellar fracture. Films reviewed and case briefly discussed with the orthopedic service. Fracture is not apparent on repeat imaging. Recommendation was for knee immobilizer but is now unnecessary. Any sort of surgical intervention is also unnecessary. PT assessment had been requested for placement. The patient is not at all safely mobile at home at baseline as he is not independently ambulatory at baseline. Patient is turned by nursing staff; he does not appear to have any interest in moving. 2. Possible lower extremity cellulitis. Patient appears to have some chronic lower extremity skin changes associated with vascular insufficiency. He is having minimal drainage. Patient has been seen by wound care services which we appreciate. The patient does not have fever, leukocytosis or elevated inflammatory indicators. Indications for antibiotics were minimal and given the patient's rash, I have stopped them. 3. Obstructive sleep apnea. Patient has a history of such and is supposed to be making use of BiPAP at night. He will be placed on it at night by our respiratory therapy services. 4. Parkinson's disease, seizure disorder. The patient will be continued on his carbidopa levodopa and phenytoin respectively. Phenytoin level is subtherapeutic by measurement, but otherwise appears effective as he has not had any seizure activity. VS,Fishbone, I+O VS, Fishbone, I+O Vital Signs Date Time Temp Pulse Resp B/P (MAP) Pulse Ox O2 Delivery O2 Flow Rate FiO2 12/11/18 14:00 98.0 96 19 110/57 (74) 94 12/07/18 00:20 Room Air I&O- Last 24 Hours up to 6 AM 12/11/18 05:59 Intake Total 1450 ml Output Total 500 ml Balance 950 ml AXEL LEYVA MD Dec 11, 2018 19:16
[2018-12-11] MEDS: LATANOPROST 0.005% OPHTH SOLN 2.5 ML OU SCH (20:22)
[2018-12-11 22:00] VITALS: BP 146/66
[2018-12-12 06:00] VITALS: BP 133/79
[2018-12-12 06:24] LABS: HEMATOCRIT 45.1 % (42.0-52.0); HEMOGLOBIN 15.4 g/dl (13.5-17.5); MEAN CORPUSCULAR HEMOGLOBIN 31.5 pg (27.0-33.0); MEAN CORPUSCULAR HGB CONC 34.1 g/dl (32.0-36.5); MEAN CORPUSCULAR VOLUME 92.2 fl (80.0-96.0); PLATELET COUNT, AUTOMATED 297 10^3/uL (150-450); RED BLOOD COUNT 4.89 10^6/uL (4.30-6.10); WHITE BLOOD COUNT 7.8 10^3/uL (4.0-10.0)
[2018-12-12 06:43] LABS: BLOOD UREA NITROGEN 14 MG/DL (7-18); CALCIUM LEVEL 8.9 MG/DL (8.8-10.2); CARBON DIOXIDE LEVEL 27 MEQ/L (21-32); CHLORIDE LEVEL 107 MEQ/L (98-107); CREATININE FOR GFR 0.62 MG/DL (0.70-1.30); GLOMERULAR FILTRATION RATE > 60.0 (>49); GLUCOSE, FASTING 90 MG/DL (70-100); POTASSIUM SERUM 4.3 MEQ/L (3.5-5.1); SODIUM LEVEL 140 MEQ/L (136-145)
[2018-12-12] MEDS: PHENYTOIN ER 100 MG CAP PO SCH ×4 (09:18→20:21)
[2018-12-12] MEDS: DOCUSATE SODIUM 100 MG CAP PO SCH ×2 (09:18→20:21)
[2018-12-12] MEDS: LISINOPRIL 20 MG TAB PO SCH (09:19)
[2018-12-12] MEDS: ENOXAPARIN 40 MG/0.4 ML SYRINGE (J1650) SC SCH (09:19)
[2018-12-12] MEDS: SINEMET 25-100 MG TAB PO SCH ×4 (09:19→20:21)
[2018-12-12] MEDS: FUROSEMIDE 40 MG TAB PO SCH (09:19)
[2018-12-12 14:00] VITALS: BP 130/75
--- NOTE | 2018-12-12 19:20 | IPNPDOC ---
Text Note Date of Service The patient was seen on 12/12/18. NOTE SUBJECTIVE: Mr. Ayala is more interactive today. He states he feels his rash is getting better. He does not have any remarkable complaints of pain. Patient was admitted with patellar injury; fracture was ruled out. Interestingly, the patient is requesting that any medications that he absolutely doesn't need be removed from his medication regimen. OBJECTIVE: Please see vital signs below Physical exam HENT: Neck is supple with no adenopathy or thyromegaly, oral mucosa is moist. Cardiovascular: Regular rate and rhythm with a normal S1 and S2 and no appreciable murmur. Respiratory: He is clear to auscultation. He generally has shallow respirations, but does not exhibit any increased respiratory effort. Abdomen: Soft, nontender, nondistended but with significant central obesity Extremities: Patient has 1+ nonpitting edema, there are signs of recent edema reduction as the skin to both lower legs is quite wrinkled. He does have decreased erythema to his lower legs, greater on the right than on the left. There is minimal serous drainage. The legs are not remarkably warm to touch. Some scaling and desquamation of the skin. Feet are fully spared. Pedal pulses are palpable. Toenails are thickened. : The patient also has an area of skin slough at the base of his right medial buttock. He then also has an area of callus-like skin at the base of his left medial buttock. These appear to be due to his relative immobility. Neuro: Patient does not exhibit distinct focal neuromotor deficit, although he is nonambulatory Skin: Skin has developed a pruritic maculopapular rash to his trunk and right leg of unclear etiology, this is improving ASSESSMENT/PLAN: 1. Left patellar fracture. Films reviewed and case briefly discussed with the orthopedic service. Fracture is not apparent on repeat imaging. Recommendation was for knee immobilizer but is now unnecessary. Any sort of surgical intervention is also unnecessary. PT assessment had been requested for placement. The patient is not at all safely mobile at home at baseline as he is not independently ambulatory at baseline. Patient is turned by nursing staff; he does not appear to have any interest in moving. He has remarkable disability from his Parkinson's. 2. Possible lower extremity cellulitis. Patient appears to have some chronic lower extremity skin changes associated with vascular insufficiency. He is having minimal drainage. Patient has been seen by wound care services which we appreciate. The patient does not have fever, leukocytosis or elevated inflammatory indicators. Indications for antib iotics were minimal and given the patient's rash, I have stopped them. 3. Obstructive sleep apnea. Patient has a history of such and is supposed to be making use of BiPAP at night. He will be placed on it at night by our respiratory therapy services. 4. Parkinson's disease, seizure disorder. The patient will be continued on his carbidopa levodopa and phenytoin respectively. Phenytoin level is subtherapeutic by measurement, but otherwise appears effective as he has not had any seizure activity. VS,Fishbone, I+O VS, Fishbone, I+O Laboratory Tests 12/12/18 05:39 Red Blood Count 4.89, Mean Corpuscular Volume 92.2, Mean Corpuscular Hemoglobin 31.5, Mean Corpuscular Hemoglobin Concent 34.1, Red Cell Distribution Width 12.1, Calcium Level 8.9 Vital Signs Date Time Temp Pulse Resp B/P (MAP) Pulse Ox O2 Delivery O2 Flow Rate FiO2 12/12/18 14:00 97.5 86 18 130/75 (93) 99 12/07/18 00:20 Room Air I&O- Last 24 Hours up to 6 AM 12/12/18 06:00 Intake Total 1170 ml Output Total 875 ml Balance 295 ml AXEL LEYVA MD Dec 12, 2018 19:20
[2018-12-12] MEDS: LATANOPROST 0.005% OPHTH SOLN 2.5 ML OU SCH (20:21)
[2018-12-12 22:00] VITALS: BP 116/67
[2018-12-13 06:00] VITALS: BP 128/79
[2018-12-13] MEDS: PHENYTOIN ER 100 MG CAP PO SCH ×4 (10:12→20:02)
[2018-12-13] MEDS: SINEMET 25-100 MG TAB PO SCH ×4 (10:12→20:02)
[2018-12-13] MEDS: DOCUSATE SODIUM 100 MG CAP PO SCH ×2 (10:12→20:02)
[2018-12-13] MEDS: ENOXAPARIN 40 MG/0.4 ML SYRINGE (J1650) SC SCH (10:12)
[2018-12-13] MEDS: FUROSEMIDE 40 MG TAB PO SCH (10:12)
[2018-12-13] MEDS: LISINOPRIL 20 MG TAB PO SCH (10:12)
[2018-12-13 13:30] VITALS: BP 96/55
[2018-12-13 14:00] VITALS: BP 96/55
[2018-12-13 15:36] VITALS: BP 95/56
[2018-12-13 15:50] VITALS: BP 121/69
--- NOTE | 2018-12-13 19:01 | IPNPDOC ---
Text Note Date of Service The patient was seen on 12/13/18. NOTE SUBJECTIVE: Mr. Ayala is more interactive today. He states he feels his rash is getting better. He does not have any remarkable complaints of pain. Patient was admitted with patellar injury; fracture was ruled out. The patient's advanced directive has been brought in and we reviewed it together. OBJECTIVE: Please see vital signs below Physical exam General: Patient has been placed up in a chair with use of a lifting device. HENT: Neck is supple with no adenopathy or thyromegaly, oral mucosa is moist. Cardiovascular: Regular rate and rhythm with a normal S1 and S2 and no appreciable murmur. Respiratory: He is clear to auscultation. He generally has shallow respirations, but does not exhibit any increased respiratory effort. Abdomen: Soft, nontender, nondistended but with significant central obesity Extremities: Patient has 1+ nonpitting edema, the skin to both lower legs is quite wrinkled. Erythema to his lower legs is resolved. There is minimal serous drainage. The legs are not warm to touch. Some scaling and desquamation of the skin. Feet are fully spared. Pedal pulses are palpable. Toenails are thickened. : The patient also has an area of skin slough at the base of his right medial buttock. He then also has an area of callus-like skin at the base of his left medial buttock. These appear to be due to his relative immobility. Neuro: Patient does not exhibit distinct focal neuromotor deficit, although he is nonambulatory Skin: Skin has developed a pruritic maculopapular rash to his trunk and right leg of unclear etiology, this is improving ASSESSMENT/PLAN: 1. Left patellar fracture. Films reviewed and case briefly discussed with the orthopedic service. Fracture was not apparent on repeat imaging. Recommendation was for knee immobilizer but is now unnecessary. Any sort of surgical intervention is also unnecessary. PT assessment had been requested for placement. The patient is not at all safely mobile at home at baseline as he is not independently ambulatory at baseline. Patient is turned by nursing staff; he does not appear to have any interest in moving. He has remarkable disability from his Parkinson's. 2. Possible lower extremity cellulitis. Patient appears to have some chronic lower extremity skin changes associated with vascular insufficiency. He is having minimal drainage. Patient has been seen by wound care services which we appreciate. The patient does not have fever, leukocytosis or elevated inflammatory indicators. Indications for antibiotics were minimal and given the patient's rash, I have stopped them. 3. Obstructive sleep apnea. Patient has a history of such and is supposed to be making use of BiPAP at night. His machine from home is at bedside. 4. Parkinson's disease, seizure disorder. The patient will be continued on his carbidopa levodopa and phenytoin respectively. Phenytoin level is subtherapeutic by measurement, but otherwise appears effective as he has not had any seizure activity. We have otherwise reviewed the patient's medication list and it is otherwise minimal. 5. CODE STATUS. The patient's own signed directive has been brought in. We have reviewed it together. Patient indicates he wishes to be DNR and does not wish to be intubated. However, he is agreeable to being placed on positive pressure ventilation. He wishes comfort measures when appropriate and antibiotics when appropriate. He does not want tube feeding. He indicates he is agreeable to organ donation. Information where appropriate has been transferred to the [facility] form and he has signed this. VS,Fishbone, I+O VS, Fishbone, I+O Vital Signs Date Time Temp Pulse Resp B/P (MAP) Pulse Ox O2 Delivery O2 Flow Rate FiO2 12/13/18 15:50 121/69 (86) 12/13/18 14:00 98.2 102 15 91 12/07/18 00:20 Room Air I&O- Last 24 Hours up to 6 AM 12/13/18 06:00 Intake Total 2352 ml Output Total 200 ml Balance 2152 ml AXEL LEYVA MD Dec 13, 2018 19:00
[2018-12-13 20:00] VITALS: BP 92/54
[2018-12-13] MEDS: LATANOPROST 0.005% OPHTH SOLN 2.5 ML OU SCH (20:02)
[2018-12-14 06:00] VITALS: BP 115/63
[2018-12-14 08:21] VITALS: BP 115/63
[2018-12-14] MEDS: LISINOPRIL 20 MG TAB PO SCH (08:21)
[2018-12-14] MEDS: DOCUSATE SODIUM 100 MG CAP PO SCH (08:21)
[2018-12-14] MEDS: FUROSEMIDE 40 MG TAB PO SCH (08:21)
[2018-12-14] MEDS: ENOXAPARIN 40 MG/0.4 ML SYRINGE (J1650) SC SCH (08:21)
[2018-12-14] MEDS: SINEMET 25-100 MG TAB PO SCH (08:21)
[2018-12-14] MEDS: PHENYTOIN ER 100 MG CAP PO SCH (08:21)
[2018-12-14] MEDS ORDERED: NYAM10003 TOP (11:09)
[2018-12-14] MEDS ORDERED: ACET1TAB55 PO (11:09)
[2018-12-14] MEDS ORDERED: COLA100C5 PO (11:09)
[2018-12-14] MEDS ORDERED: LOVE1INJ SC (11:09)
[2018-12-14] MEDS ORDERED: CALCIUM/VITAMIN D 500 MG TAB PO SCH (20:00)
== END 2018-12-14 12:08 | DRG 914 ==
LOC: M ED 13:52 → M ED INP 13:53 → M MSPAV 12-07 00:46 → INTOOBSV 12-08 10:18 → OBSVTOIN 12-08 10:18
PROVIDERS: ADMIT Internal Medicine; ATTEND Internal Medicine
DX: S89.92XA Unspecified injury of left lower leg, initial encounter (principal); L03.115 Cellulitis of right lower limb; L03.116 Cellulitis of left lower limb; G20 Parkinson's disease; G40.909 Epilepsy, unspecified, not intractable, without status epilepticus; I10 Essential (primary) hypertension; G47.33 Obstructive sleep apnea (adult) (pediatric); N40.0 Benign prostatic hyperplasia without lower urinary tract symptoms; Z79.899 Other long term (current) drug therapy; Z88.0 Allergy status to penicillin; Z91.018 Allergy to other foods; Z90.49 Acquired absence of other specified parts of digestive tract; R26.89 Other abnormalities of gait and mobility; R29.6 Repeated falls; Z66 Do not resuscitate; W19.XXXA Unspecified fall, initial encounter; Y92.89 Other specified places as the place of occurrence of the external cause; Y99.8 Other external cause status

== ENCOUNTER → 2018-12-27 | Outpatient (REF) ==
[~2018-12-27] MED LIST changes: +ACET1TAB55 PO; +CALCCAP4 PO; +CARB10TA6 PO; +CARB25TA9 PO; +COLA100C5 PO; +LISI-538 PO; +LOVE1INJ SC; +MULT-40 PO; +NYAM10003 TOP; +PHEN100C PO; +TRAV04OPD OU
[2018-12-27 09:46] LABS: HEMATOCRIT 45.5 % (42.0-52.0); HEMOGLOBIN 15.6 g/dl (13.5-17.5); MEAN CORPUSCULAR HEMOGLOBIN 31.6 pg (27.0-33.0); MEAN CORPUSCULAR HGB CONC 34.3 g/dl (32.0-36.5); MEAN CORPUSCULAR VOLUME 92.3 fl (80.0-96.0); PLATELET COUNT, AUTOMATED 317 10^3/uL (150-450); RED BLOOD COUNT 4.93 10^6/uL (4.30-6.10); WHITE BLOOD COUNT 6.2 10^3/uL (4.0-10.0)
[2018-12-27 10:10] LABS: BLOOD UREA NITROGEN 13 MG/DL (7-18); CARBON DIOXIDE LEVEL 26 MEQ/L (21-32); CHLORIDE LEVEL 106 MEQ/L (98-107); CREATININE FOR GFR 0.61 MG/DL (0.70-1.30); GLOMERULAR FILTRATION RATE > 60.0 (>49); GLUCOSE, FASTING 82 MG/DL (70-100); POTASSIUM SERUM 4.4 MEQ/L (3.5-5.1); SODIUM LEVEL 140 MEQ/L (136-145)
== END ==
PROVIDERS: ATTEND Family Medicine
DX: I50.9 Heart failure, unspecified (principal)

== ENCOUNTER → 2019-01-05 | Outpatient (REF) ==
[2019-01-05 16:04] LABS: HEMATOCRIT 43.6 % (42.0-52.0); HEMOGLOBIN 14.5 g/dl (13.5-17.5); MEAN CORPUSCULAR HEMOGLOBIN 30.5 pg (27.0-33.0); MEAN CORPUSCULAR HGB CONC 33.3 g/dl (32.0-36.5); MEAN CORPUSCULAR VOLUME 91.8 fl (80.0-96.0); PLATELET COUNT, AUTOMATED 227 10^3/uL (150-450); RED BLOOD COUNT 4.75 10^6/uL (4.30-6.10); WHITE BLOOD COUNT 7.5 10^3/uL (4.0-10.0)
[2019-01-05 16:19] LABS: BLOOD UREA NITROGEN 26 MG/DL (7-18); CALCIUM LEVEL 8.5 MG/DL (8.8-10.2); CARBON DIOXIDE LEVEL 26 MEQ/L (21-32); CHLORIDE LEVEL 108 MEQ/L (98-107); CREATININE FOR GFR 0.78 MG/DL (0.70-1.30); GLOMERULAR FILTRATION RATE > 60.0 (>49); GLUCOSE, FASTING 120 MG/DL (70-100); POTASSIUM SERUM 4.4 MEQ/L (3.5-5.1); SODIUM LEVEL 140 MEQ/L (136-145); URIC ACID 4.3 MG/DL (3.5-7.2)
--- NOTE | 2019-01-05 17:17 | REPPI ---
Right knee: Two views. History: Right knee pain. Findings: AP and lateral views of the right knee demonstrate advanced lateral and patellofemoral compartment osteoarthritis with joint space narrowing and spur formation. There is sclerosis in the lateral compartment as well. 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 Impression: Significant spurring and osteoarthritis. Electronically Signed by Chace Raman MD 01/05/2019 05:22 P
== END ==
PROVIDERS: ATTEND Physician Assistant
DX: M17.11 Unilateral primary osteoarthritis, right knee (principal)

== ENCOUNTER → 2019-01-24 | Outpatient (REF) ==
[2019-01-24 09:53] LABS: HEMOGLOBIN 15.4 g/dl (13.5-17.5); MEAN CORPUSCULAR HEMOGLOBIN 30.7 pg (27.0-33.0); MEAN CORPUSCULAR HGB CONC 34.2 g/dl (32.0-36.5); MEAN CORPUSCULAR VOLUME 89.8 fl (80.0-96.0); PLATELET COUNT, AUTOMATED 318 10^3/uL (150-450); RED BLOOD COUNT 5.01 10^6/uL (4.30-6.10); WHITE BLOOD COUNT 7.4 10^3/uL (4.0-10.0)
[2019-01-24 10:19] LABS: BLOOD UREA NITROGEN 20 MG/DL (7-18); CALCIUM LEVEL 8.7 MG/DL (8.8-10.2); CARBON DIOXIDE LEVEL 26 MEQ/L (21-32); CHLORIDE LEVEL 108 MEQ/L (98-107); CREATININE FOR GFR 0.82 MG/DL (0.70-1.30); GLOMERULAR FILTRATION RATE > 60.0 (>49); GLUCOSE, FASTING 137 MG/DL (70-100); POTASSIUM SERUM 4.1 MEQ/L (3.5-5.1); SODIUM LEVEL 141 MEQ/L (136-145)
== END ==
PROVIDERS: ATTEND Family Medicine
DX: I50.20 Unspecified systolic (congestive) heart failure (principal)

== ENCOUNTER → 2019-03-05 | Outpatient (REF) | payer MEDICARE, OTHER ==
[2019-03-05 15:42] LABS: ALBUMIN 3.4 GM/DL (3.2-5.2); ALT/SGPT 16 U/L (12-78); BILIRUBIN,TOTAL 0.5 MG/DL (0.2-1.0); BLOOD UREA NITROGEN 13 MG/DL (7-18); CALCIUM LEVEL 9.4 MG/DL (8.8-10.2); CARBON DIOXIDE LEVEL 27 MEQ/L (21-32); CHLORIDE LEVEL 108 MEQ/L (98-107); CHOLESTEROL LEVEL 196 MG/DL (<200); CHOLESTEROL RISK RATIO 2.648 (<5); CREATININE FOR GFR 0.63 MG/DL (0.70-1.30); GLOMERULAR FILTRATION RATE > 60.0 (>49); GLUCOSE, FASTING 89 MG/DL (70-100); HDL CHOLESTEROL 74 MG/DL (>40); LDL CHOLESTEROL 102 MG/DL (<100); MAGNESIUM LEVEL 2.4 MG/DL (1.8-2.4); NON-HDL-C 122 MG/DL; POTASSIUM SERUM 4.3 MEQ/L (3.5-5.1); SODIUM LEVEL 143 MEQ/L (136-145); TOTAL PROTEIN 7.3 GM/DL (6.4-8.2); TRIGLYCERIDES LEVEL 100 MG/DL (<150)
== END ==
LOC: M SFHCPLAZ 13:38
PROVIDERS: ATTEND Internal Medicine
DX: I10 Essential (primary) hypertension (principal); E78.00 Pure hypercholesterolemia, unspecified
CPT/HCPCS: 36415; 80053; 80061; 83735; G0463

== ENCOUNTER → 2019-07-02 | Outpatient (REF) | payer MEDICARE, OTHER | LOC: M SFHCPLAZ 15:44 | PROVIDERS: ATTEND Internal Medicine | DX: G47.30 Sleep apnea, unspecified (principal); I10 Essential (primary) hypertension ==

== ENCOUNTER 2019-08-01 09:28 | Emergency (ER) | payer MEDICARE, OTHER ==
[~2019-08-01] VITALS: Ht 165.1 cm; Wt 104.5 kg
[~2019-08-01 09:28] MED LIST changes: -LISI-538 PO; +LISI20TA33 PO
[2019-08-01 10:59] LABS: BASO % 0.4 % (0.0-1.0); EOS # 0.2 10^3/uL (0.0-0.5); HEMATOCRIT 43.7 % (42.0-52.0); HEMOGLOBIN 15.3 g/dl (13.5-17.5); LYMPH # 0.6 10^3/uL (1.5-5.0); LYMPH % 6.5 % (24.0-44.0); MEAN CORPUSCULAR HEMOGLOBIN 31.7 pg (27.0-33.0); MEAN CORPUSCULAR VOLUME 90.7 fl (80.0-96.0); MONO # 1.3 10^3/uL (0.0-0.8); MONO % 13.9 % (0.0-5.0); NEUTROPHILS # 7.2 10^3/uL (1.5-8.5); NEUTROPHILS % 76.8 % (36.0-66.0); PLATELET COUNT, AUTOMATED 271 10^3/uL (150-450); RED BLOOD COUNT 4.82 10^6/uL (4.30-6.10); WHITE BLOOD COUNT 9.4 10^3/uL (4.0-10.0)
[2019-08-01 11:04] LABS: INR 1.19; PARTIAL THROMBOPLASTIN TIME 30.3 SECONDS (25.0-38.4); PROTHROMBIN TIME 14.8 SECONDS (11.8-14.0)
[2019-08-01 11:17] LABS: ACETAMINOPHEN LEVEL < 2.0 UG/ML (10.0-30.0); ALBUMIN 3.3 GM/DL (3.2-5.2); ALT/SGPT 33 U/L (12-78); BILIRUBIN,DIRECT 0.2 MG/DL (0.0-0.2); CPK CREATINE PHOSPHOKINASE 568 U/L (39-308); ETHYL ALCOHOL (ETHANOL) < 0.003 % (0.000-0.010); MB/CK RELATIVE INDEX 1.94 (< OR =4); SALICYLATE LEVEL < 1.7 MG/DL (5.0-30.0); TOTAL PROTEIN 7.7 GM/DL (6.4-8.2); TROPONIN I < 0.02 NG/ML (< 0.10)
[2019-08-01 11:23] LABS: BLOOD UREA NITROGEN 16 MG/DL (7-18); CALCIUM LEVEL 8.8 MG/DL (8.8-10.2); CARBON DIOXIDE LEVEL 27 MEQ/L (21-32); CHLORIDE LEVEL 106 MEQ/L (98-107); CREATININE FOR GFR 0.61 MG/DL (0.70-1.30); GLOMERULAR FILTRATION RATE > 60.0 (>49); GLUCOSE, FASTING 93 MG/DL (70-100); NT-PRO BNP 112 PG/ML (<125); PHENYTOIN (DILANTIN) 7.8 UG/ML (10.0-20.0); POTASSIUM SERUM 4.2 MEQ/L (3.5-5.1); SODIUM LEVEL 141 MEQ/L (136-145)
--- NOTE | 2019-08-01 11:50 | REPVR ---
PROCEDURE INFORMATION: Exam: CT Head Without Contrast Exam date and time: 08/01/2019 11:09 AM Age: 68 years old Clinical indication: Injury or trauma; Fall; Initial encounter; Blunt trauma (contusions or hematomas); Additional info: Fall, head injury TECHNIQUE: Imaging protocol: Computed tomography of the head without contrast. Radiation optimization: All CT scans at this facility use at least one of these dose optimization techniques: automated exposure control; mA and/or kV adjustment per patient size (includes targeted exams where dose is matched to clinical indication); or iterative reconstruction. COMPARISON: No relevant prior studies available. FINDINGS: Brain: No hemorrhage or edema seen. Bilateral frontal lobe encephalomalacia with ex vacuo enlargement of the frontal horns of the lateral ventricles. To a lesser extent, inferior right temporal lobe encephalomalacia. Left frontal coarse calcifications are likely dystrophic. The brain demonstrates mild generalized volume loss. A small insular/right subinsular infarct versus area of posttraumatic encephalomalacia. Ventricles: The ventricles appear enlarged in keeping with volume loss. Bones/joints: No acute fracture seen. There is an old right orbital floor fracture. Sinuses: Mild frontal recess and ethmoid sinus mucosal thickening. Mastoid air cells: Visualized mastoid air cells are well aerated. Soft tissues: Unremarkable. IMPRESSION: No acute intracranial abnormality seen. Electronically signed by: Mirna Lainez On 08/01/2019 11:50:25 AM
--- NOTE | 2019-08-01 11:59 | REPVR ---
PROCEDURE INFORMATION: Exam: CT Cervical Spine Without Contrast Exam date and time: 08/01/2019 11:09 AM Age: 68 years old Clinical indication: Injury or trauma; Fall; Initial encounter; Blunt trauma; Additional info: Fall, head injury TECHNIQUE: Imaging protocol: Computed tomography images of the cervical spine without contrast. Radiation optimization: All CT scans at this facility use at least one of these dose optimization techniques: automated exposure control; mA and/or kV adjustment per patient size (includes targeted exams where dose is matched to clinical indication); or iterative reconstruction. COMPARISON: No relevant prior studies available. FINDINGS: Vertebrae: Mild lower cervical levoconvex scoliosis. Exaggeration of the cervical lordosis compensatory to an exaggerated thoracic kyphosis. Trace grade 1 degenerative anterolisthesis of C2 on C3. No acute fracture seen. Disc height loss and spondylosis is moderate at C5-C6 and C6-C7, [id number] at C3-C4 and C4-C5. Moderate degenerative changes at C1-C2. No severe central spinal canal stenosis. There are neural foraminal stenoses due to uncovertebral and facet arthropathy, in particular on the right at C2-C3 and C6-C7. Discs/Spinal canal/Neural foramina: See "Vertebrae" finding. Soft tissues: Unremarkable. Lungs: Lung apices are normal. IMPRESSION: No cervical spine fracture seen. Electronically signed by: Mirna Lainez On 08/01/2019 11:59:01 AM
[2019-08-01] MEDS ORDERED: LIDOCAINE 2% 5ML JELLY UROJET TOP ONE (12:30)
--- NOTE | 2019-08-01 12:45 | REP ---
REASON FOR EXAM: Lower abdominal pain after a fall. The lack of intravenous contrast significantly decreases the sensitivity of the exam. There are no priors for comparison. Granulomatous changes are seen in the liver and spleen. There is a 1.4-cm sized cyst in the lateral segment of the left lobe of the liver. The gallbladder, pancreas, and adrenal glands are within normal limits. Left kidney is within normal limits. There is a subtle area of low density seen in the right kidney which appears to be artifactual rather than focal. [place] artifact is seen in the retroperitoneum. No definite focal renal abnormality is noted. The abdominal aorta and para-aortic regions are within normal limits. No free fluid or free air is seen in the abdomen or pelvis. Limited evaluation of the intra-abdominal and intrapelvic bowel loops and their mesenteries show no acute disease. There is colonic diverticulosis. There is no evidence of an intra-abdominal or intrapelvic mass or adenopathy. Bone window technique throughout the exam shows spinal, hip, and sacroiliac joint degenerative changes. There is no evidence of an acute fracture. IMPRESSION: There is no evidence of acute disease. Findings and exam limitations as described above. Electronically Signed by Kaz Mccann DO 08/01/2019 01:29 P
--- NOTE | 2019-08-01 12:51 | REP ---
CT CHEST WITHOUT IV CONTRAST: CT chest performed without IV contrast. Sagittal and coronal reconstruction images are performed. Scattered fibrotic changes are seen in the lugs. There is no acute infiltrate or consolidation. No pulmonary contusion is seen. Tiny calcified granuloma seen in the right posterior costophrenic sulcus. There is no pneumothorax. There is no pleural or pericardial effusion. Heart is normal in size. No axillary or mediastinal adenopathy is seen. Thoracic aorta is mildly ectatic in the region of the ascending aorta with a maximum diameter of 4 cm. There are diffuse degenerative changes of the spine. There is no acute fracture seen of the visualized osseous structures. IMPRESSION: Chronic changes, as above, with no acute infiltrate, pneumothorax, pleural effusion, or fracture identified. Electronically Signed by Jeff Corrales MD 08/01/2019 01:00 P
--- NOTE | 2019-08-01 12:58 | REP ---
REASON: Altered mental status. COMPARISON: 12/06/2018 The technique utilized in obtaining the radiograph has magnified the cardiac silhouette and accentuated the interstitial markings. Cardiac silhouette is magnified by technique, status quo. There are chronic lung field changes, status quo. No acute patchy parenchymal opacities or pleural effusions have developed. There is no significant change in appearance of the osseous structures. IMPRESSION: Stable chronic changes. Electronically Signed by Kaz Mccann DO 08/01/2019 01:29 P
--- NOTE | 2019-08-01 13:13 | REP ---
AP pelvis only, due to trauma. There are no priors for comparison. AP examination of the pelvis shows degenerative changes involving the imaged portion of the spine, the hips, and the sacroiliac joints. There is no plane radiographic evidence of an acute fracture. Electronically Signed by Kaz Mccann DO 08/01/2019 01:29 P
--- NOTE | 2019-08-01 13:30 | REP ---
REASON FOR EXAM: Pain and swelling. Marked degenerative change is seen throughout both feet. There is an internal fixation pin seen in the left talus. There is a lucency seen in the base of the proximal phalanx of the 3rd digit of the left foot, possibly representing an age-undetermined fracture. There is bilateral diffuse soft tissue swelling, particularly dorsum of the right foot greater than left. IMPRESSION: 1. Possible left foot fracture, as described above. 2. Advanced chronic changes bilaterally. 3. Bilateral soft tissue swelling, as described above. 4. Previous talar pinning. Electronically Signed by Kaz Mccann DO 08/01/2019 01:30 P
[2019-08-01] MEDS ORDERED: ACETAMINOPHEN 325 MG TAB PO ONE (13:45)
[2019-08-01 15:51] VITALS: BP 119/54
--- NOTE | 2019-08-01 16:22 | REP ---
Due to a technical error, an official report could not be generated until the error was rectified, which just occurred. A preliminary report was, however, placed in the [employer] at the time the examination was performed. The exam is bilateral femur. Two views of the right femur show marked degenerative changes involving the knee and moderate degenerative changes involving the hip. The exam is limited due to positioning. There is no gross fracture. Four views of the left femur show moderate to severe degenerative changes involving the knee with evidence of moderate to severe degenerative changes involving the hip. There is no evidence of an acute fracture. IMPRESSION: Bilateral degenerative changes, as described above. Electronically Signed by Kaz Mccann DO 08/01/2019 04:57 P
--- NOTE | 2019-08-01 16:29 | REP ---
REASON FOR EXAM: Altered mental status. Due to a technical error at the time the exam was performed, official report could not be generated until this time after the technical error was rectified. A preliminary report was put in the [employer] in regards to the findings at the time the exam was performed. The exam is bilateral lower leg. Right side, two views shows degenerative changes involving the ankle with no evidence of an acute fracture, however, the proximal tibia and proximal fibula were not included on the radiograph and I cannot confirm that the small portion of the proximal tibia and proximal fibula which was obtained on the right femur examination makes up for the whole length of the lower extremity. Two views of the left tibia and fibula were obtained due to altered mental status. Degenerative and postoperative changes are seen at the ankle. There is no evidence of an acute fracture, however, I cannot confirm that the portion of the proximal tibia and fibula not imaged on this lower leg exam was included as part of the left femoral exam. No fracture with exam limitations and findings, as described above bilaterally. Electronically Signed by Kaz Mccann DO 08/01/2019 04:57 P
--- NOTE | 2019-08-01 18:43 | ECGEPIP ---
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
[2019-08-03] MEDS ORDERED: ASPI81TA86 PO (11:14)
== END 2019-08-01 15:55 | disposition home or self-care (01) ==
LOC: M ED 09:28 → EDBD 09:28 → M ED 15:55
DX: S30.0XXA Contusion of lower back and pelvis, initial encounter (principal); W05.0XXA Fall from non-moving wheelchair, initial encounter; Y92.099 Unspecified place in other non-institutional residence as the place of occurrence of the external cause; Y93.9 Activity, unspecified; Y99.9 Unspecified external cause status; M43.12 Spondylolisthesis, cervical region; M47.812 Spondylosis without myelopathy or radiculopathy, cervical region; M99.51 Intervertebral disc stenosis of neural canal of cervical region; R00.0 Tachycardia, unspecified; E11.9 Type 2 diabetes mellitus without complications; I10 Essential (primary) hypertension; G47.30 Sleep apnea, unspecified; Z87.19 Personal history of other diseases of the digestive system; R56.1 Post traumatic seizures; Z87.820 Personal history of traumatic brain injury; Z79.82 Long term (current) use of aspirin; Z79.899 Other long term (current) drug therapy; Z88.0 Allergy status to penicillin; Z91.018 Allergy to other foods

== ENCOUNTER 2019-08-03 10:36 | Inpatient (IN) | payer MEDICARE, OTHER ==
[~2019-08-03] VITALS: Ht 167.6 cm; Wt 111.8 kg
[~2019-08-03 10:36] MED LIST changes: +LISI-538 PO; -LISI20TA33 PO
[2019-08-03] MEDS ORDERED: ASPI81TA85 PO (11:14)
[2019-08-03] MEDS ORDERED: FURO80TA2 PO (11:14)
[2019-08-03 11:35] LABS: BASO # 0.1 10^3/uL (0.0-0.2); BASO % 0.6 % (0.0-1.0); EOS # 0.3 10^3/uL (0.0-0.5); EOS % 3.2 % (0.0-3.0); HEMATOCRIT 43.1 % (42.0-52.0); HEMOGLOBIN 14.4 g/dl (13.5-17.5); LYMPH # 0.6 10^3/uL (1.5-5.0); LYMPH % 6.6 % (24.0-44.0); MEAN CORPUSCULAR HEMOGLOBIN 31.2 pg (27.0-33.0); MEAN CORPUSCULAR HGB CONC 33.4 g/dl (32.0-36.5); MEAN CORPUSCULAR VOLUME 93.3 fl (80.0-96.0); MONO # 1.6 10^3/uL (0.0-0.8); MONO % 16.9 % (0.0-5.0); NEUTROPHILS # 6.8 10^3/uL (1.5-8.5); NEUTROPHILS % 72.1 % (36.0-66.0); PLATELET COUNT, AUTOMATED 286 10^3/uL (150-450); RED BLOOD COUNT 4.62 10^6/uL (4.30-6.10); WHITE BLOOD COUNT 9.5 10^3/uL (4.0-10.0)
[2019-08-03 11:52] LABS: ALBUMIN 2.7 GM/DL (3.2-5.2); ALT/SGPT 39 U/L (12-78); BILIRUBIN,DIRECT 0.2 MG/DL (0.0-0.2); BILIRUBIN,TOTAL 0.3 MG/DL (0.2-1.0); BLOOD UREA NITROGEN 17 MG/DL (7-18); CALCIUM LEVEL 8.2 MG/DL (8.8-10.2); CARBON DIOXIDE LEVEL 29 MEQ/L (21-32); CHLORIDE LEVEL 106 MEQ/L (98-107); CREATININE FOR GFR 0.85 MG/DL (0.70-1.30); GLOMERULAR FILTRATION RATE > 60.0 (>49); GLUCOSE, FASTING 89 MG/DL (70-100); NT-PRO BNP 104 PG/ML (<125); PHENYTOIN (DILANTIN) 4.9 UG/ML (10.0-20.0); SODIUM LEVEL 143 MEQ/L (136-145); TOTAL PROTEIN 6.6 GM/DL (6.4-8.2)
--- NOTE | 2019-08-03 14:39 | REP ---
PORTABLE CHEST: AP portable view of the chest is performed and compared to prior study of 08/01/2019. There is mild chronic interstitial fibrosis with no acute infiltrate. There is mild cardiomegaly. There is calcification and tortuosity of the thoracic aorta. Mediastinal silhouette is unchanged. IMPRESSION: Mild cardiomegaly and chronic changes with no acute infiltrate. Electronically Signed by Jeff Corrales MD 08/06/2019 09:57 P
[2019-08-03] MEDS ORDERED: TRAV04OPD OU (14:41)
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
[2019-08-03 17:00] VITALS: BP 127/64
[2019-08-03] MEDS: FUROSEMIDE 100MG/10ML VIAL (J1940) IV SCH (17:31)
[2019-08-03] MEDS: PHENYTOIN ER 100 MG CAP PO SCH ×2 (17:31→21:56)
[2019-08-03] MEDS: LATANOPROST 0.005% OPHTH SOLN 2.5 ML OU SCH (21:56)
[2019-08-03 22:00] VITALS: BP 126/70
[2019-08-04] MEDS: FUROSEMIDE 100MG/10ML VIAL (J1940) IV SCH ×3 (00:56→17:22)
[2019-08-04] MEDS: NYSTATIN 100,000 UNITS/GM TOPICAL PWD 15 GM TOP SCH ×3 (02:52→20:23)
[2019-08-04 06:00] VITALS: BP 139/73
[2019-08-04 07:38] LABS: BASO # 0.1 10^3/uL (0.0-0.2); BASO % 0.6 % (0.0-1.0); EOS # 0.4 10^3/uL (0.0-0.5); EOS % 4.2 % (0.0-3.0); HEMATOCRIT 40.8 % (42.0-52.0); HEMOGLOBIN 14.3 g/dl (13.5-17.5); LYMPH # 0.7 10^3/uL (1.5-5.0); LYMPH % 7.4 % (24.0-44.0); MEAN CORPUSCULAR HEMOGLOBIN 32.2 pg (27.0-33.0); MEAN CORPUSCULAR VOLUME 91.9 fl (80.0-96.0); MONO # 1.3 10^3/uL (0.0-0.8); MONO % 13.7 % (0.0-5.0); NEUTROPHILS % 73.6 % (36.0-66.0); PLATELET COUNT, AUTOMATED 249 10^3/uL (150-450); RED BLOOD COUNT 4.44 10^6/uL (4.30-6.10); WHITE BLOOD COUNT 9.5 10^3/uL (4.0-10.0)
[2019-08-04 07:55] LABS: BLOOD UREA NITROGEN 13 MG/DL (7-18); CARBON DIOXIDE LEVEL 30 MEQ/L (21-32); CHLORIDE LEVEL 105 MEQ/L (98-107); GLOMERULAR FILTRATION RATE > 60.0 (>49); GLUCOSE, FASTING 89 MG/DL (70-100); POTASSIUM SERUM 3.6 MEQ/L (3.5-5.1); SODIUM LEVEL 141 MEQ/L (136-145)
[2019-08-04] MEDS: lisinopriL 20 MG TAB PO SCH (09:00)
[2019-08-04] MEDS: ASPIRIN 81 MG ENTERIC TAB PO SCH (09:24)
[2019-08-04] MEDS: PHENYTOIN ER 100 MG CAP PO SCH ×4 (09:24→20:22)
[2019-08-04] MEDS: HEPARIN SOD (PORCINE) 5000UNITS/ML VIAL (J1644 PER 1000UNITS) SQ SCH ×2 (09:25→20:23)
[2019-08-04] MEDS: ACETAMINOPHEN TAB 650MG DOSE (2X325MG) PO PRN (09:26)
[2019-08-04 14:00] VITALS: BP 123/69
--- NOTE | 2019-08-04 18:17 | IPNPDOC ---
Date Seen The patient was seen on 08/04/19. Progress Note SUBJECTIVE: Per PT, Patient demonstrates decreased functional mobility and safety and will likely require rehab beyond his acute care stay in the hospital. Admits to weakness in the lower legs; however, not worsened from admission. BNP was normal so CHF is not a current diagnosis. Denies chest pain, n/v/d, shortness of breath. OBJECTIVE: VITAL SIGNS: Please see below PHYSICAL EXAMINATION: CONSTITUTIONAL: No acute distress, resting comfortably, AAO x 3, stutters some with conversation EYES: PERRLA, EOM intact HENT, MOUTH: Normocephalic, atraumatic, moist mucous membranes NECK: SUPPLE, no JVD, no lymphadenopathy, no carotid bruit CV: Regular rate and rhythm, S1S2 normal, no murmurs/rubs/gallops RESPIRATORY: Clear to auscultation bilaterally, no rales/rhonchi/wheezes GI: BS positive in 4 quadrants, soft, nontender, nondistended, no rebound or guarding, no organomegaly : Deferred MUSCULOSKELETAL: ROM not tested as patient was in bed . No cyanosis, clubbing, swelling, joint deformity. INTEGUMENTARY: Intact, no rashes, no lesions, no erythema NEUROLOGIC: Cranial Nerves II-XII are intact, no focal deficits. 3/5 strength in the bilateral upper and lower ext. SEnsory and motor were intact. All reflexes in upper and lower ext wnl. PSYCHIATRIC: Mood and affect are normal CURRENT MEDICATIONS: Please see below LABORATORY DATA: Please see below IMAGING: None ASSESSMENT: 68 y/o M with worsening generalized weakness r/o Parkinson's disease or multiple system atrophy. PLAN: 1. Generalized weakness r/o Parkinson's disease or multiple system atrophy. Following with neurology as o/p. Has gradually been worsening and becoming harder to manage at home with just his . Per PT, patient demonstrates decreased functional mobility and safety and will likely require rehab beyond his acute care stay in the hospital. Patient able to perform EOB sitting and sit to stand transfers with moderate/maximal assistance at this time. C/w PT/OT, will request neuro notes after weekend. Fall risk. Patient has been referred to [place] for multisystem atrophy; however, has been unable to go due to transportation issue. 2. Lower ext swelling, ? lymphedema or venous insufficiency. Not CHF with normal BMP. Decreased lasix dose to BID for now, monitoring Cr. Elevate legs when in bed or sitting. 3. CHET. Use home Bipap. 4. Morbid obesity. Consider nutrition consult. 5. Epilepsy. No recent seizures. C/w phenytoin. 6. Hypertension. Stable. C/w lisinopril, lasix. 7. DVT px. Heparin. DISPOSITION: currently admitted under inpatient status. May require rehab/koko cement due to severity of weakness. Will discuss with team after weekend. VS, I&O, 24H, Fishbone Vital Signs/I&O Vital Signs Date Time Temp Pulse Resp B/P (MAP) Pulse Ox O2 Delivery O2 Flow Rate FiO2 08/04/19 14:00 97.4 104 18 123/69 (87) 93 Room Air I&O- Last 24 Hours up to 6 AM 08/04/19 05:59 Intake Total 975 ml Output Total 1000 ml Balance -25 ml Laboratory Data 24H LABS Laboratory Tests 2 08/04/19 07:12: Immature Granulocyte % (Auto) 0.5, Neutrophils (%) (Auto) 73.6H, Lymphocytes (%) (Auto) 7.4L, Monocytes (%) (Auto) 13.7H, Eosinophils (%) (Auto) 4.2H, Basophils (%) (Auto) 0.6, Neutrophils # (Auto) 7.0, Lymphocytes # (Auto) 0.7L, Monocytes # (Auto) 1.3H, Eosinophils # (Auto) 0.4, Basophils # (Auto) 0.1, Nucleated Red Blood Cells % (auto) 0.0, Anion Gap 6L, Glomerular Filtration Rate > 60.0, Calcium Level 8.0L CBC/BMP Laboratory Tests 08/04/19 07:12 Current Medications Current Medications Medications (Trade) Dose Ordered Sig/Roger Route PRN Reason Start Time Stop Time Status Last Admin Dose Admin Acetaminophen (Tylenol Tab) 650 mg Q6HP PRN PO PAIN / FEVER 08/04/19 09:15 08/04/19 09:26 Aspirin (Ecotrin) 81 mg DAILY PO 08/04/19 09:00 08/04/19 09:24 Furosemide (LASIX injection) 60 mg Q8H IV 08/03/19 16:00 08/04/19 17:22 Heparin Sodium (Porcine) (Heparin) 5,000 units BID SQ 08/04/19 09:00 08/04/19 09:25 Home Med (Med Rec Complete!) ASDIRECTED XX 08/03/19 14:45 08/03/19 14:44 DC Latanoprost (Xalatan 0.005% Op Soln) 1 drop QHS OU 08/03/19 21:00 08/03/19 21:56 Lisinopril (Prinivil) 20 mg DAILY PO 08/04/19 09:00 Nystatin (Mycostatin Powder, Nystop) APPLY TO AFFECTED AREA BID TOP 08/03/19 21:00 08/04/19 09:25 Phenytoin (Dilantin) 100 mg QID PO 08/03/19 17:00 08/04/19 17:21 Allergies Coded Allergies: Kiwi (Verified Allergy, Unknown, 12/05/18) Penicillins (Verified Allergy, Unknown, UNKNOWN REACTION, 08/03/19) banana (Verified Allergy, Unknown, 12/05/18) Lydia Ramos MD Aug 04, 2019 18:17
[2019-08-04] MEDS: LATANOPROST 0.005% OPHTH SOLN 2.5 ML OU SCH (20:23)
[2019-08-04 22:00] VITALS: BP 123/70
[2019-08-05 06:00] VITALS: BP 116/69
[2019-08-05 06:27] LABS: BASO # 0.1 10^3/uL (0.0-0.2); BASO % 0.6 % (0.0-1.0); EOS # 0.5 10^3/uL (0.0-0.5); EOS % 6.1 % (0.0-3.0); HEMATOCRIT 41.9 % (42.0-52.0); HEMOGLOBIN 14.5 g/dl (13.5-17.5); LYMPH # 0.8 10^3/uL (1.5-5.0); LYMPH % 10.1 % (24.0-44.0); MEAN CORPUSCULAR HEMOGLOBIN 31.4 pg (27.0-33.0); MEAN CORPUSCULAR HGB CONC 34.6 g/dl (32.0-36.5); MEAN CORPUSCULAR VOLUME 90.7 fl (80.0-96.0); MONO # 1.1 10^3/uL (0.0-0.8); MONO % 13.3 % (0.0-5.0); NEUTROPHILS # 5.5 10^3/uL (1.5-8.5); NEUTROPHILS % 69.1 % (36.0-66.0); PLATELET COUNT, AUTOMATED 266 10^3/uL (150-450); RED BLOOD COUNT 4.62 10^6/uL (4.30-6.10); WHITE BLOOD COUNT 7.9 10^3/uL (4.0-10.0)
[2019-08-05 06:48] LABS: BLOOD UREA NITROGEN 14 MG/DL (7-18); CALCIUM LEVEL 8.2 MG/DL (8.8-10.2); CARBON DIOXIDE LEVEL 29 MEQ/L (21-32); CHLORIDE LEVEL 103 MEQ/L (98-107); CREATININE FOR GFR 0.65 MG/DL (0.70-1.30); GLOMERULAR FILTRATION RATE > 60.0 (>49); GLUCOSE, FASTING 84 MG/DL (70-100); POTASSIUM SERUM 3.8 MEQ/L (3.5-5.1); SODIUM LEVEL 138 MEQ/L (136-145)
[2019-08-05] MEDS: lisinopriL 20 MG TAB PO SCH (09:00)
[2019-08-05] MEDS ORDERED: FUROSEMIDE 100MG/10ML VIAL (J1940) IV SCH (09:00)
[2019-08-05] MEDS: ASPIRIN 81 MG ENTERIC TAB PO SCH (09:46)
[2019-08-05] MEDS: PHENYTOIN ER 100 MG CAP PO SCH ×4 (09:46→20:51)
[2019-08-05] MEDS: NYSTATIN 100,000 UNITS/GM TOPICAL PWD 15 GM TOP SCH ×2 (09:47→20:52)
[2019-08-05] MEDS: HEPARIN SOD (PORCINE) 5000UNITS/ML VIAL (J1644 PER 1000UNITS) SQ SCH ×2 (09:47→20:51)
[2019-08-05] MEDS: VANICREAM MOISTURIZING SKIN CREAM 113GM TUBE TOP SCH ×2 (12:01→20:51)
[2019-08-05 14:00] VITALS: BP 125/73
--- NOTE | 2019-08-05 16:59 | IPNPDOC ---
Date Seen The patient was seen on 08/05/19. Progress Note SUBJECTIVE: No events overnight and no complaints. Requested neuro records and will likely be obtained on 08/06/19. Denies chest pain, n/v/d, shortness of breath. OBJECTIVE: VITAL SIGNS: Please see below PHYSICAL EXAMINATION: CONSTITUTIONAL: No acute distress, resting comfortably, AAO x 3, stutters some with conversation EYES: PERRLA, EOM intact HENT, MOUTH: Normocephalic, atraumatic, moist mucous membranes NECK: SUPPLE, no JVD, no lymphadenopathy, no carotid bruit CV: Regular rate and rhythm, S1S2 normal, no murmurs/rubs/gallops RESPIRATORY: Clear to auscultation bilaterally, no rales/rhonchi/wheezes GI: BS positive in 4 quadrants, soft, nontender, nondistended, no rebound or guarding, no organomegaly : Deferred MUSCULOSKELETAL: ROM not tested as patient was in bed . No cyanosis, clubbing, swelling, joint deformity. INTEGUMENTARY: Intact, no rashes, no lesions, no erythema NEUROLOGIC: Cranial Nerves II-XII are intact, no focal deficits. 3/5 strength in the bilateral upper and lower ext. SEnsory and motor were intact. All reflexes in upper and lower ext wnl. PSYCHIATRIC: Mood and affect are normal CURRENT MEDICATIONS: Please see below LABORATORY DATA: Please see below IMAGING: None ASSESSMENT: 68 y/o M with worsening generalized weakness r/o Parkinson's disease or multiple system atrophy. PLAN: 1. Generalized weakness r/o Parkinson's disease or multiple system atrophy. Following with neurology as o/p. Has gradually been worsening and becoming harder to manage at home with just his . Per PT, patient demonstrates decreased functional mobility and safety and will likely require rehab beyond his acute care stay in the hospital. Patient able to perform EOB sitting and sit to stand transfers with moderate/maximal assistance at this time. C/w PT/OT, will request neuro notes after weekend. Fall risk. Patient has been referred to [place] for multisystem atrophy; however, has been unable to go due to transportation issue. 2. Lower ext swelling, ? lymphedema or venous insufficiency. Not CHF with normal BMP. C/w daily lasix, monitoring Cr. Elevate legs when in bed or sitting. 3. CHET. Use home Bipap. 4. Morbid obesity. 5. Epilepsy. No recent seizures. C/w phenytoin. 6. Hypertension. Stable. C/w lisinopril, lasix. 7. DVT px. Heparin. DISPOSITION: Currently admitted under inpatient status. Likely will require rehab/placement due to severity of weakness and difficulty for his to manage at home. VS, I&O, 24H, Fishbone Vital Signs/I&O Vital Signs Date Time Temp Pulse Resp B/P (MAP) Pulse Ox O2 Delivery O2 Flow Rate FiO2 08/05/19 14:00 97.5 101 18 125/73 (90) 95 08/05/19 06:00 Room Air 08/04/19 06:00 2.0 I&O- Last 24 Hours up to 6 AM 08/05/19 06:00 Intake Total 540 ml Output Total 750 ml Balance -210 ml Laboratory Data 24H LABS Laboratory Tests 2 08/05/19 05:57: Immature Granulocyte % (Auto) 0.8, Neutrophils (%) (Auto) 69.1H, Lymphocytes (%) (Auto) 10.1L, Monocytes (%) (Auto) 13.3H, Eosinophils (%) (Auto) 6.1H, Basophils (%) (Auto) 0.6, Neutrophils # (Auto) 5.5, Lymphocytes # (Auto) 0.8L, Monocytes # (Auto) 1.1H, Eosinophils # (Auto) 0.5, Basophils # (Auto) 0.1, Nucleated Red Blood Cells % (auto) 0.0, Anion Gap 6L, Glomerular Filtration Rate > 60.0, Calcium Level 8.2L CBC/BMP Laboratory Tests 08/05/19 05:57 Current Medications Current Medications Medications (Trade) Dose Ordered Sig/Roger Route PRN Reason Start Time Stop Time Status Last Admin Dose Admin Acetaminophen (Tylenol Tab) 650 mg Q6HP PRN PO PAIN / FEVER 08/04/19 09:15 08/04/19 09:26 Aspirin (Ecotrin) 81 mg DAILY PO 08/04/19 09:00 08/05/19 09:46 Emollient Cream (Vanicream) 1 dose BID TOP 08/05/19 09:00 08/05/19 12:01 Furosemide (LASIX injection) 60 mg DAILY IV 08/05/19 09:00 08/05/19 10:10 DC 08/05/19 09:47 Furosemide (LASIX injection) 60 mg Q8H IV 08/03/19 16:00 08/04/19 18:24 DC 08/04/19 17:22 Furosemide (Lasix) 40 mg DAILY PO 08/06/19 09:00 Heparin Sodium (Porcine) (Heparin) 5,000 units BID SQ 08/04/19 09:00 08/05/19 09:47 Home Med (Med Rec Complete!) ASDIRECTED XX 08/03/19 14:45 08/03/19 14:44 DC Latanoprost (Xalatan 0.005% Op Soln) 1 drop QHS OU 08/03/19 21:00 08/04/19 20:23 Lisinopril (Prinivil) 20 mg DAILY PO 08/04/19 09:00 Nystatin (Mycostatin Powder, Nystop) APPLY TO AFFECTED AREA BID TOP 08/03/19 21:00 08/05/19 09:47 Phenytoin (Dilantin) 100 mg QID PO 08/03/19 17:00 08/05/19 13:32 Allergies Coded Allergies: Kiwi (Verified Allergy, Unknown, 12/05/18) Penicillins (Verified Allergy, Unknown, UNKNOWN REACTION, 08/03/19) banana (Verified Allergy, Unknown, 12/05/18) Lydia Ramos MD Aug 05, 2019 16:59
[2019-08-05] MEDS: ACETAMINOPHEN TAB 650MG DOSE (2X325MG) PO PRN (17:24)
[2019-08-05] MEDS: LATANOPROST 0.005% OPHTH SOLN 2.5 ML OU SCH (20:51)
[2019-08-05 22:00] VITALS: BP 137/77
[2019-08-06] MEDS: ACETAMINOPHEN TAB 650MG DOSE (2X325MG) PO PRN (01:48)
[2019-08-06 06:00] VITALS: BP 101/58
[2019-08-06 06:05] LABS: BASO # 0.1 10^3/uL (0.0-0.2); BASO % 0.7 % (0.0-1.0); EOS # 0.6 10^3/uL (0.0-0.5); EOS % 8.7 % (0.0-3.0); HEMATOCRIT 41.9 % (42.0-52.0); HEMOGLOBIN 14.4 g/dl (13.5-17.5); LYMPH # 0.8 10^3/uL (1.5-5.0); MEAN CORPUSCULAR HEMOGLOBIN 31.3 pg (27.0-33.0); MEAN CORPUSCULAR HGB CONC 34.4 g/dl (32.0-36.5); MEAN CORPUSCULAR VOLUME 91.1 fl (80.0-96.0); MONO # 0.9 10^3/uL (0.0-0.8); MONO % 13.1 % (0.0-5.0); NEUTROPHILS # 4.4 10^3/uL (1.5-8.5); NEUTROPHILS % 64.3 % (36.0-66.0); PLATELET COUNT, AUTOMATED 284 10^3/uL (150-450); WHITE BLOOD COUNT 6.9 10^3/uL (4.0-10.0)
[2019-08-06 06:39] LABS: BLOOD UREA NITROGEN 15 MG/DL (7-18); CALCIUM LEVEL 8.2 MG/DL (8.8-10.2); CARBON DIOXIDE LEVEL 28 MEQ/L (21-32); CHLORIDE LEVEL 104 MEQ/L (98-107); CREATININE FOR GFR 0.57 MG/DL (0.70-1.30); GLOMERULAR FILTRATION RATE > 60.0 (>49); GLUCOSE, FASTING 86 MG/DL (70-100); POTASSIUM SERUM 4.3 MEQ/L (3.5-5.1); SODIUM LEVEL 137 MEQ/L (136-145)
[2019-08-06] MEDS: lisinopriL 20 MG TAB PO SCH (09:00)
[2019-08-06] MEDS: FUROSEMIDE 40 MG TAB PO SCH (09:24)
[2019-08-06] MEDS: HEPARIN SOD (PORCINE) 5000UNITS/ML VIAL (J1644 PER 1000UNITS) SQ SCH ×2 (09:24→21:14)
[2019-08-06] MEDS: PHENYTOIN ER 100 MG CAP PO SCH ×4 (09:24→21:14)
[2019-08-06] MEDS: ASPIRIN 81 MG ENTERIC TAB PO SCH (09:24)
[2019-08-06] MEDS: VANICREAM MOISTURIZING SKIN CREAM 113GM TUBE TOP SCH ×2 (09:25→21:15)
[2019-08-06] MEDS: NYSTATIN 100,000 UNITS/GM TOPICAL PWD 15 GM TOP SCH ×2 (09:25→21:15)
[2019-08-06 14:00] VITALS: BP 122/70
--- NOTE | 2019-08-06 17:43 | IPNPDOC ---
Date Seen The patient was seen on 08/06/19. Progress Note SUBJECTIVE: No events overnight and no complaints. Neurology notes still not obtained, requested again. Plan is placement as is unable to care for patient at home. Denies chest pain, n/v/d, shortness of breath. OBJECTIVE: VITAL SIGNS: Please see below PHYSICAL EXAMINATION: CONSTITUTIONAL: No acute distress, resting comfortably, AAO x 3, stutters some with conversation EYES: PERRLA, EOM intact HENT, MOUTH: Normocephalic, atraumatic, moist mucous membranes NECK: SUPPLE, no JVD, no lymphadenopathy, no carotid bruit CV: Regular rate and rhythm, S1S2 normal, no murmurs/rubs/gallops RESPIRATORY: Clear to auscultation bilaterally, no rales/rhonchi/wheezes GI: BS positive in 4 quadrants, soft, nontender, nondistended, no rebound or guarding, no organomegaly : Deferred MUSCULOSKELETAL: ROM not tested as patient was in bed . No cyanosis, clubbing, swelling, joint deformity. INTEGUMENTARY: Intact, no rashes, no lesions, no erythema NEUROLOGIC: Cranial Nerves II-XII are intact, no focal deficits. 3/5 strength in the bilateral upper and lower ext. Sensory and motor were intact. All reflexes in upper and lower ext wnl. PSYCHIATRIC: Mood and affect are normal CURRENT MEDICATIONS: Please see below LABORATORY DATA: Please see below IMAGING: None ASSESSMENT: 68 y/o M with worsening generalized weakness r/o Parkinson's disease or multiple system atrophy. PLAN: 1. Generalized weakness r/o Parkinson's disease or multiple system atrophy. Following with neurology as o/p. Per PT, unsafe for home. Will require placement. C/w PT/OT, neuro notes are requested Patient has been referred to [place] for multisystem atrophy; however, has been unable to go due to transportation issue. Fall precautions. 2. Lower ext swelling, ? lymphedema or venous insufficiency. Not CHF with normal BMP. C/w daily lasix, monitoring Cr. Elevate legs when in bed or sitting. 3. CHET. Use home Bipap. 4. Morbid obesity. 5. Epilepsy. No recent seizures. C/w phenytoin. 6. Hypertension. Stable. C/w lisinopril, lasix. 7. DVT px. Heparin. DISPOSITION: Currently admitted under inpatient status. Likely will require rehab/placement due to severity of weakness and difficulty for his to manage at home. We should have a plan in place for patient's neurological issues prior to discharge. VS, I&O, 24H, Fishbone Vital Signs/I&O Vital Signs Date Time Temp Pulse Resp B/P (MAP) Pulse Ox O2 Delivery O2 Flow Rate FiO2 08/06/19 14:00 97.9 100 16 122/70 (87) 98 Room Air 08/04/19 06:00 2.0 I&O- Last 24 Hours up to 6 AM 08/06/19 06:00 Intake Total 990 ml Output Total 0 ml Balance 990 ml Laboratory Data 24H LABS Laboratory Tests 2 08/06/19 05:49: Immature Granulocyte % (Auto) 1.2, Neutrophils (%) (Auto) 64.3, Lymphocytes (%) (Auto) 12.0L, Monocytes (%) (Auto) 13.1H, Eosinophils (%) (Auto) 8.7H, Basophils (%) (Auto) 0.7, Neutrophils # (Auto) 4.4, Lymphocytes # (Auto) 0.8L, Monocytes # (Auto) 0.9H, Eosinophils # (Auto) 0.6H, Basophils # (Auto) 0.1, Nucleated Red Blood Cells % (auto) 0.0, Anion Gap 5L, Glomerular Filtration Rate > 60.0, Calcium Level 8.2L CBC/BMP Laboratory Tests 08/06/19 05:49 Current Medications Current Medications Medications (Trade) Dose Ordered Sig/Roger Route PRN Reason Start Time Stop Time Status Last Admin Dose Admin Acetaminophen (Tylenol Tab) 650 mg Q6HP PRN PO PAIN / FEVER 08/04/19 09:15 08/06/19 01:48 Aspirin (Ecotrin) 81 mg DAILY PO 08/04/19 09:00 08/06/19 09:24 Emollient Cream (Vanicream) 1 dose BID TOP 08/05/19 09:00 08/06/19 09:25 Furosemide (LASIX injection) 60 mg DAILY IV 08/05/19 09:00 08/05/19 10:10 DC 08/05/19 09:47 Furosemide (LASIX injection) 60 mg Q8H IV 08/03/19 16:00 08/04/19 18:24 DC 08/04/19 17:22 Furosemide (Lasix) 40 mg DAILY PO 08/06/19 09:00 08/06/19 09:24 Heparin Sodium (Porcine) (Heparin) 5,000 units BID SQ 08/04/19 09:00 08/06/19 09:24 Home Med (Med Rec Complete!) ASDIRECTED XX 08/03/19 14:45 08/03/19 14:44 DC Latanoprost (Xalatan 0.005% Op Soln) 1 drop QHS OU 08/03/19 21:00 08/05/19 20:51 Lisinopril (Prinivil) 20 mg DAILY PO 08/04/19 09:00 Nystatin (Mycostatin Powder, Nystop) APPLY TO AFFECTED AREA BID TOP 08/03/19 21:00 08/06/19 09:25 Phenytoin (Dilantin) 100 mg QID PO 08/03/19 17:00 08/06/19 16:55 Allergies Coded Allergies: Kiwi (Verified Allergy, Unknown, 12/05/18) Penicillins (Verified Allergy, Unknown, UNKNOWN REACTION, 08/03/19) banana (Verified Allergy, Unknown, 12/05/18) Lydia Ramos MD Aug 06, 2019 17:43
--- NOTE | 2019-08-06 21:13 | ECHO ---
DATE OF PROCEDURE: 08/06/2019 REFERRING PHYSICIAN: Dr. Galina Green INDICATION: Edema. Height 168 cm, weight 117 kg. DIMENSIONS: IVS: 1.0 LV: 4.3 LVPW: 0.9 LA: 3.9 Aorta: 3.2 RV: 3.8 IVC: 2.5 Mitral E wave velocity: 62 A wave: 94 E prime septal: 5.4 FINDINGS: The study is of rather limited technical quality with difficult visualization. The patient is in sinus rhythm. Normal left ventricular (LV) size with normal LV systolic function. Estimated ejection fraction (EF) around 60% based on limited views. Right ventricle was poorly seen, and I cannot much comment on its contractility, it is at least mildly dilated. Left atrium is mildly enlarged. Right atrium was poorly visualized. Aortic valve is sclerotic but it has preserved mobility. There are also degenerative abnormalities of mitral valve with mitral annular calcifications. Limited views of tricuspid valve appear grossly normal. Pulmonic valve was not well seen. No pericardial effusion is noted. Inferior vena cava is dilated but has collapse with inspiration indicative likely mildly elevated central venous pressure. Aortic root is normal. Aortic arch and abdominal aorta were not well seen. Doppler interrogation reveals competent aortic valve. There is trace mitral insufficiency and mild tricuspid insufficiency. Quality of TR jet, though, was sufficient to adequately estimate pulmonary artery pressure. Mitral inflow pattern and tissue Doppler imaging of mitral annulus revealed grade 1 diastolic dysfunction. CONCLUSIONS: 1. Study is of limited technical quality, the patient is in sinus rhythm. 2. Normal LV size with grossly preserved LV systolic function and grade 1 diastolic dysfunction. 3. No hemodynamically significant valvular disease. 4. At least mildly elevated central venous pressure. 5. Unable to estimate pulmonary artery pressure. 6. Right ventricle appears dilated. COMMENT: Subacute bacterial endocarditis (SBE) prophylaxis is not recommended.
[2019-08-06] MEDS: LATANOPROST 0.005% OPHTH SOLN 2.5 ML OU SCH (21:15)
[2019-08-06 22:00] VITALS: BP 142/62
[2019-08-07 06:00] VITALS: BP 143/85
[2019-08-07 07:31] LABS: BASO # 0.1 10^3/uL (0.0-0.2); BASO % 0.7 % (0.0-1.0); EOS # 0.5 10^3/uL (0.0-0.5); EOS % 7.6 % (0.0-3.0); HEMATOCRIT 43.3 % (42.0-52.0); HEMOGLOBIN 14.6 g/dl (13.5-17.5); LYMPH # 0.9 10^3/uL (1.5-5.0); LYMPH % 12.2 % (24.0-44.0); MEAN CORPUSCULAR HEMOGLOBIN 30.8 pg (27.0-33.0); MEAN CORPUSCULAR HGB CONC 33.7 g/dl (32.0-36.5); MEAN CORPUSCULAR VOLUME 91.4 fl (80.0-96.0); MONO # 0.8 10^3/uL (0.0-0.8); NEUTROPHILS # 4.6 10^3/uL (1.5-8.5); NEUTROPHILS % 66.3 % (36.0-66.0); PLATELET COUNT, AUTOMATED 297 10^3/uL (150-450); RED BLOOD COUNT 4.74 10^6/uL (4.30-6.10); WHITE BLOOD COUNT 6.9 10^3/uL (4.0-10.0)
[2019-08-07 07:50] LABS: BLOOD UREA NITROGEN 13 MG/DL (7-18); CALCIUM LEVEL 8.5 MG/DL (8.8-10.2); CARBON DIOXIDE LEVEL 28 MEQ/L (21-32); CHLORIDE LEVEL 104 MEQ/L (98-107); CREATININE FOR GFR 0.64 MG/DL (0.70-1.30); GLOMERULAR FILTRATION RATE > 60.0 (>49); GLUCOSE, FASTING 85 MG/DL (70-100); POTASSIUM SERUM 4.3 MEQ/L (3.5-5.1); SODIUM LEVEL 139 MEQ/L (136-145)
[2019-08-07 09:00] VITALS: BP 129/75
[2019-08-07] MEDS: lisinopriL 20 MG TAB PO SCH ×2 (09:00→09:57)
[2019-08-07] MEDS: PHENYTOIN ER 100 MG CAP PO SCH ×2 (09:54→12:42)
[2019-08-07] MEDS: HEPARIN SOD (PORCINE) 5000UNITS/ML VIAL (J1644 PER 1000UNITS) SQ SCH (09:54)
[2019-08-07] MEDS: ASPIRIN 81 MG ENTERIC TAB PO SCH (09:54)
[2019-08-07] MEDS: FUROSEMIDE 40 MG TAB PO SCH (09:55)
[2019-08-07] MEDS: NYSTATIN 100,000 UNITS/GM TOPICAL PWD 15 GM TOP SCH (09:58)
[2019-08-07] MEDS: VANICREAM MOISTURIZING SKIN CREAM 113GM TUBE TOP SCH (09:58)
[2019-08-07] MEDS: ACETAMINOPHEN TAB 650MG DOSE (2X325MG) PO PRN (11:52)
[2019-08-07] MEDS ORDERED: NYST10006 TOP (11:58)
[2019-08-07] MEDS ORDERED: VANI1CRE5 TOP (11:58)
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
== END 2019-08-07 13:58 | DRG 57 ==
LOC: EDBD 10:36 → M ED 10:36 → M ED INP 13:58 → ENRESERV 16:22 → M MSPAV 16:37
PROVIDERS: ADMIT Internal Medicine Nephrology; ATTEND Internal Medicine
DX: G20 Parkinson's disease (principal); Z68.41 Body mass index [BMI] 40.0-44.9, adult; I50.32 Chronic diastolic (congestive) heart failure; G13.8 Systemic atrophy primarily affecting central nervous system in other diseases classified elsewhere; I87.2 Venous insufficiency (chronic) (peripheral); I11.0 Hypertensive heart disease with heart failure; E66.01 Morbid (severe) obesity due to excess calories; M51.34 Other intervertebral disc degeneration, thoracic region; H40.9 Unspecified glaucoma; E78.00 Pure hypercholesterolemia, unspecified; Z66 Do not resuscitate; R53.1 Weakness; R32 Unspecified urinary incontinence; G40.909 Epilepsy, unspecified, not intractable, without status epilepticus; I89.0 Lymphedema, not elsewhere classified; M17.0 Bilateral primary osteoarthritis of knee; M85.80 Other specified disorders of bone density and structure, unspecified site; G47.33 Obstructive sleep apnea (adult) (pediatric); Z74.09 Other reduced mobility; Z79.82 Long term (current) use of aspirin; Z79.899 Other long term (current) drug therapy; Z88.0 Allergy status to penicillin; Z91.018 Allergy to other foods; Z86.718 Personal history of other venous thrombosis and embolism; Z90.49 Acquired absence of other specified parts of digestive tract; Z11.59 Encounter for screening for other viral diseases

== ENCOUNTER → 2019-09-05 | Outpatient (REF) ==
[~2019-09-05] MED LIST changes: +ASPI81TA86 PO; +FURO80TA2 PO; +NYST10006 TOP; +VANI1CRE5 TOP
[2019-09-05 08:28] LABS: HEMATOCRIT 45.6 % (42.0-52.0); HEMOGLOBIN 15.8 g/dl (13.5-17.5); MEAN CORPUSCULAR HEMOGLOBIN 31.5 pg (27.0-33.0); MEAN CORPUSCULAR HGB CONC 34.6 g/dl (32.0-36.5); MEAN CORPUSCULAR VOLUME 90.8 fl (80.0-96.0); PLATELET COUNT, AUTOMATED 239 10^3/uL (150-450); RED BLOOD COUNT 5.02 10^6/uL (4.30-6.10); WHITE BLOOD COUNT 5.7 10^3/uL (4.0-10.0)
[2019-09-05 09:13] LABS: BLOOD UREA NITROGEN 15 MG/DL (7-18); CALCIUM LEVEL 9.1 MG/DL (8.8-10.2); CARBON DIOXIDE LEVEL 25 MEQ/L (21-32); CHLORIDE LEVEL 104 MEQ/L (98-107); CPK CREATINE PHOSPHOKINASE 36 U/L (39-308); CREATININE FOR GFR 0.76 MG/DL (0.70-1.30); GLOMERULAR FILTRATION RATE > 60.0 (>49); GLUCOSE, FASTING 141 MG/DL (70-100); POTASSIUM SERUM 4.4 MEQ/L (3.5-5.1); SODIUM LEVEL 138 MEQ/L (136-145)
== END ==
LOC: SKLAB2 09:04
DX: I10 Essential (primary) hypertension (principal)

== ENCOUNTER → 2019-10-09 | Outpatient (REF) ==
[2020-01-05 07:54] LABS: BLOOD UREA NITROGEN 13 MG/DL (7-18); CALCIUM LEVEL 8.6 MG/DL (8.8-10.2); CARBON DIOXIDE LEVEL 26 MEQ/L (21-32); CHLORIDE LEVEL 105 MEQ/L (98-107); CREATININE FOR GFR 0.64 MG/DL (0.70-1.30); GLOMERULAR FILTRATION RATE > 60.0 (>49); GLUCOSE, FASTING 80 MG/DL (70-100); POTASSIUM SERUM 4.5 MEQ/L (3.5-5.1); SODIUM LEVEL 137 MEQ/L (136-145)
== END ==
LOC: SKLAB2 14:14
DX: I10 Essential (primary) hypertension (principal)

== ENCOUNTER → 2019-11-13 | Outpatient (REF) | payer MEDICARE, OTHER ==
[2019-11-13 08:47] LABS: BLOOD UREA NITROGEN 13 MG/DL (7-18); CALCIUM LEVEL 8.8 MG/DL (8.8-10.2); CARBON DIOXIDE LEVEL 26 MEQ/L (21-32); CHLORIDE LEVEL 106 MEQ/L (98-107); GLOMERULAR FILTRATION RATE > 60.0 (>42); GLUCOSE, FASTING 82 MG/DL (70-100); POTASSIUM SERUM 4.1 MEQ/L (3.5-5.1); SODIUM LEVEL 138 MEQ/L (136-145)
== END ==
LOC: SKLAB2 07:00
DX: I10 Essential (primary) hypertension (principal)

== ENCOUNTER → 2019-12-11 | Outpatient (REF) | payer MEDICARE, OTHER ==
[2019-12-11 10:53] LABS: BLOOD UREA NITROGEN 14 MG/DL (7-18); CALCIUM LEVEL 8.7 MG/DL (8.8-10.2); CARBON DIOXIDE LEVEL 26 MEQ/L (21-32); CHLORIDE LEVEL 104 MEQ/L (98-107); CREATININE FOR GFR 0.68 MG/DL (0.70-1.30); GLOMERULAR FILTRATION RATE > 60.0 (>42); GLUCOSE, FASTING 117 MG/DL (70-100); POTASSIUM SERUM 4.3 MEQ/L (3.5-5.1); SODIUM LEVEL 137 MEQ/L (136-145)
== END ==
LOC: SKLAB2 08:00
DX: I10 Essential (primary) hypertension (principal)

== ENCOUNTER → 2019-12-17 | Outpatient (REF) | payer MEDICARE, OTHER | LOC: SKLAB2 10:54 | DX: J06.9 Acute upper respiratory infection, unspecified (principal) ==

== ENCOUNTER → 2020-01-08 | Outpatient (REF) | payer MEDICARE, OTHER ==
[2020-01-08 10:09] LABS: BLOOD UREA NITROGEN 12 MG/DL (7-18); CARBON DIOXIDE LEVEL 27 MEQ/L (21-32); CHLORIDE LEVEL 105 MEQ/L (98-107); CREATININE FOR GFR 0.58 MG/DL (0.70-1.30); GLOMERULAR FILTRATION RATE > 60.0 (>42); GLUCOSE, FASTING 88 MG/DL (70-100); POTASSIUM SERUM 4.1 MEQ/L (3.5-5.1); SODIUM LEVEL 138 MEQ/L (136-145)
== END ==
LOC: SKLAB2 08:30
DX: I10 Essential (primary) hypertension (principal)

== ENCOUNTER → 2020-01-10 | Outpatient (REF) | payer MEDICARE, OTHER | LOC: SKLAB2 12:49 | DX: Z20.828 Contact with and (suspected) exposure to other viral communicable diseases (principal) ==

== ENCOUNTER → 2020-01-15 | Outpatient (REF) | payer MEDICARE, OTHER ==
[2020-01-15 09:44] LABS: BLOOD UREA NITROGEN 12 MG/DL (7-18); CARBON DIOXIDE LEVEL 26 MEQ/L (21-32); CHLORIDE LEVEL 105 MEQ/L (98-107); CREATININE FOR GFR 0.71 MG/DL (0.70-1.30); GLOMERULAR FILTRATION RATE > 60.0 (>42); GLUCOSE, FASTING 120 MG/DL (70-100); POTASSIUM SERUM 3.7 MEQ/L (3.5-5.1); SODIUM LEVEL 138 MEQ/L (136-145)
== END ==
LOC: SKLAB2 07:00
DX: R60.9 Edema, unspecified (principal)

== ENCOUNTER → 2020-01-16 | Outpatient (REF) | payer MEDICARE, OTHER | LOC: SKLAB2 01-15 11:26 → EDSTATUS 02-06 16:22 | DX: Z20.818 Contact with and (suspected) exposure to other bacterial communicable diseases (principal) ==

== ENCOUNTER → 2020-01-30 | Outpatient (REF) | payer MEDICARE, OTHER | LOC: SKLAB2 08:00 | DX: Z20.828 Contact with and (suspected) exposure to other viral communicable diseases (principal) ==

== ENCOUNTER → 2020-02-06 | Outpatient (REF) | payer MEDICARE, OTHER | LOC: SKLAB2 07:34 | DX: Z20.828 Contact with and (suspected) exposure to other viral communicable diseases (principal) ==

== ENCOUNTER → 2020-02-12 | Outpatient (REF) | payer MEDICARE, OTHER ==
[2020-02-12 10:45] LABS: BLOOD UREA NITROGEN 10 MG/DL (7-18); CALCIUM LEVEL 8.6 MG/DL (8.8-10.2); CARBON DIOXIDE LEVEL 27 MEQ/L (21-32); CHLORIDE LEVEL 104 MEQ/L (98-107); CREATININE FOR GFR 0.68 MG/DL (0.70-1.30); GLOMERULAR FILTRATION RATE > 60.0 (>42); GLUCOSE, FASTING 121 MG/DL (70-100); POTASSIUM SERUM 3.9 MEQ/L (3.5-5.1); SODIUM LEVEL 138 MEQ/L (136-145)
== END ==
LOC: SKLAB2 08:00
DX: I10 Essential (primary) hypertension (principal)

== ENCOUNTER → 2020-02-13 | Outpatient (REF) | payer MEDICARE, OTHER | LOC: SKLAB2 11:30 | DX: Z20.828 Contact with and (suspected) exposure to other viral communicable diseases (principal) ==

== ENCOUNTER → 2020-02-15 | Outpatient (REF) | payer MEDICARE, OTHER ==
[2020-02-15 08:46] LABS: ALBUMIN 3.4 GM/DL (3.2-5.2); BILIRUBIN,DIRECT 0.1 MG/DL (0.0-0.2); BILIRUBIN,TOTAL 0.4 MG/DL (0.2-1.0)
[2020-02-15 09:34] LABS: HEMOGLOBIN A1c 5.2 %
== END ==
LOC: SKLAB2 02-14 10:57
DX: E11.9 Type 2 diabetes mellitus without complications (principal)

== ENCOUNTER → 2020-02-20 | Outpatient (REF) | payer MEDICARE, OTHER | LOC: SKLAB2 08:05 | DX: Z20.828 Contact with and (suspected) exposure to other viral communicable diseases (principal) ==

== ENCOUNTER → 2020-02-27 | Outpatient (REF) | payer MEDICARE, OTHER | LOC: SKLAB2 10:16 | DX: Z20.828 Contact with and (suspected) exposure to other viral communicable diseases (principal) ==

== ENCOUNTER → 2020-03-05 | Outpatient (REF) | payer MEDICARE, OTHER | LOC: SKLAB2 07:00 | PROVIDERS: ATTEND Internal Medicine | DX: Z11.52 Encounter for screening for COVID-19 (principal) ==

== ENCOUNTER → 2020-03-11 | Outpatient (REF) | payer MEDICARE, OTHER ==
[2020-03-11 11:32] LABS: BLOOD UREA NITROGEN 14 MG/DL (7-18); CARBON DIOXIDE LEVEL 28 MEQ/L (21-32); CHLORIDE LEVEL 102 MEQ/L (98-107); CREATININE FOR GFR 0.68 MG/DL (0.70-1.30); GLOMERULAR FILTRATION RATE > 60.0 (>42); GLUCOSE, FASTING 63 MG/DL (70-100); POTASSIUM SERUM 4.2 MEQ/L (3.5-5.1); SODIUM LEVEL 137 MEQ/L (136-145)
== END ==
LOC: SKLAB2 11:21
DX: I10 Essential (primary) hypertension (principal)

== ENCOUNTER → 2020-03-12 | Outpatient (REF) | payer MEDICARE, OTHER | LOC: SKLAB2 07:00 | PROVIDERS: ATTEND Internal Medicine | DX: Z20.822 Contact with and (suspected) exposure to COVID-19 (principal) ==

== ENCOUNTER → 2020-03-19 | Outpatient (REF) | payer MEDICARE, OTHER ==
[~2020-03-19] MED LIST changes: -LISI-538 PO; +LISI20TA33 PO
== END ==
LOC: SKLAB2 07:00
PROVIDERS: ATTEND Internal Medicine
DX: Z20.822 Contact with and (suspected) exposure to COVID-19 (principal)

== ENCOUNTER → 2020-03-21 | Outpatient (CLI) | payer MEDICARE, OTHER ==
--- NOTE | 2020-03-25 09:30 | SLEEPCENT ---
NOCTURNAL POLYSOMNOGRAPHY DATE: 03/21/2020 ORDERED BY: Kelsea Villavicencio NP Nocturnal polysomnography was performed for the titration of pressure therapy in this patient with obstructive sleep apnea syndrome. For testing a ResMed Quattro full face mask of medium size was used, initial BiLevel pressure of inspiratory 11/expiratory 9 was applied to the circuit, and the lights were extinguished. 7 hours and 11 minutes of data were reviewed. There were 363.5 minutes of sleep identified. Sleep latency was short at 2.5 minutes. REM latency was short at 48 minutes. Sleep architecture was fair. There was some mild fragmentation in the middle portion of the study, but three REM cycles noted. Overall sleep efficiency was 85.3%. The electrocardiogram showed a sinus rhythm with an average heart rate of 66 beats per minute. EEG showed normal waveforms for wake and sleep. Respiratory events were best palliated with an inspiratory pressure of 16/expiratory pressure of 12 with some minor limb activity, but remaining measures of sleep physiology were normal. IMPRESSION: Obstructive sleep apnea syndrome (G47.33). RECOMMENDATION: Nightly use of BiLevel pressure therapy inspiratory 16/expiratory pressure 12. Dr. Combs
== END ==
LOC: M SLEEP 20:00
PROVIDERS: ATTEND Nurse Practitioner Adult Health
DX: G47.33 Obstructive sleep apnea (adult) (pediatric) (principal)

== ENCOUNTER → 2020-03-26 | Outpatient (REF) | payer MEDICARE, OTHER | LOC: SKLAB2 13:58 | PROVIDERS: ATTEND Internal Medicine | DX: Z20.822 Contact with and (suspected) exposure to COVID-19 (principal) ==

== ENCOUNTER → 2020-04-02 | Outpatient (REF) | payer MEDICARE, OTHER | LOC: SKLAB2 10:34 | PROVIDERS: ATTEND Internal Medicine | DX: Z11.52 Encounter for screening for COVID-19 (principal) ==

== ENCOUNTER → 2020-04-08 | Outpatient (REF) | payer MEDICARE, OTHER ==
[2020-04-08 10:10] LABS: BLOOD UREA NITROGEN 11 MG/DL (7-18); CALCIUM LEVEL 8.8 MG/DL (8.8-10.2); CARBON DIOXIDE LEVEL 27 MEQ/L (21-32); CHLORIDE LEVEL 105 MEQ/L (98-107); CREATININE FOR GFR 0.77 MG/DL (0.70-1.30); GLOMERULAR FILTRATION RATE > 60.0 (>42); GLUCOSE, FASTING 143 MG/DL (70-100); POTASSIUM SERUM 4.1 MEQ/L (3.5-5.1); SODIUM LEVEL 140 MEQ/L (136-145)
== END ==
LOC: SKLAB2 10:53
DX: I10 Essential (primary) hypertension (principal)

== ENCOUNTER → 2020-04-09 | Outpatient (REF) | payer MEDICARE, OTHER | LOC: SKLAB2 10:52 | PROVIDERS: ATTEND Internal Medicine | DX: Z20.822 Contact with and (suspected) exposure to COVID-19 (principal) ==

== ENCOUNTER → 2020-04-16 | Outpatient (REF) | payer MEDICARE, OTHER | LOC: SKLAB2 08:09 | PROVIDERS: ATTEND Internal Medicine | DX: Z11.52 Encounter for screening for COVID-19 (principal) ==

== ENCOUNTER → 2020-04-23 | Outpatient (REF) | payer MEDICARE, OTHER | LOC: SKLAB2 09:23 | PROVIDERS: ATTEND Internal Medicine | DX: Z20.822 Contact with and (suspected) exposure to COVID-19 (principal) ==

== ENCOUNTER → 2020-05-06 | Outpatient (REF) | payer MEDICARE, OTHER ==
[2020-05-06 08:00] LABS: BLOOD UREA NITROGEN 12 MG/DL (7-18); CALCIUM LEVEL 8.8 MG/DL (8.8-10.2); CARBON DIOXIDE LEVEL 29 MEQ/L (21-32); CHLORIDE LEVEL 105 MEQ/L (98-107); CREATININE FOR GFR 0.65 MG/DL (0.70-1.30); GLOMERULAR FILTRATION RATE > 60.0 (>42); GLUCOSE, FASTING 86 MG/DL (70-100); POTASSIUM SERUM 4.2 MEQ/L (3.5-5.1); SODIUM LEVEL 140 MEQ/L (136-145)
== END ==
LOC: SKLAB2 10:23
DX: I10 Essential (primary) hypertension (principal)

== ENCOUNTER → 2020-05-07 | Outpatient (REF) | payer MEDICARE, OTHER | LOC: SKLAB2 08:00 | PROVIDERS: ATTEND Internal Medicine | DX: Z11.52 Encounter for screening for COVID-19 (principal) ==

== ENCOUNTER → 2020-05-14 | Outpatient (REF) | payer MEDICARE, OTHER | LOC: SKLAB2 10:29 | PROVIDERS: ATTEND Internal Medicine | DX: Z20.822 Contact with and (suspected) exposure to COVID-19 (principal) ==

== ENCOUNTER → 2020-05-30 | Outpatient (REF) | payer MEDICARE, OTHER | LOC: SKLAB2 13:09 | PROVIDERS: ATTEND Internal Medicine | DX: Z20.822 Contact with and (suspected) exposure to COVID-19 (principal) ==

== ENCOUNTER → 2020-06-03 | Outpatient (REF) | payer MEDICARE, OTHER ==
[2020-06-03 08:59] LABS: BLOOD UREA NITROGEN 12 MG/DL (7-18); CALCIUM LEVEL 8.9 MG/DL (8.8-10.2); CARBON DIOXIDE LEVEL 30 MEQ/L (21-32); CHLORIDE LEVEL 105 MEQ/L (98-107); CREATININE FOR GFR 0.59 MG/DL (0.70-1.30); GLOMERULAR FILTRATION RATE > 60.0 (>42); GLUCOSE, FASTING 88 MG/DL (70-100); POTASSIUM SERUM 4.1 MEQ/L (3.5-5.1); SODIUM LEVEL 140 MEQ/L (136-145)
== END ==
LOC: SKLAB2 13:25
DX: E11.9 Type 2 diabetes mellitus without complications (principal)

== ENCOUNTER → 2020-06-10 | Outpatient (REF) | payer MEDICARE, OTHER | LOC: CANPREREF → SKLAB2 15:11 | DX: Z53.8 Procedure and treatment not carried out for other reasons (principal) ==

== ENCOUNTER → 2020-06-18 | Outpatient (CLI) | payer MEDICARE, OTHER ==
--- NOTE | 2020-06-18 14:15 | REP ---
INDICATION: R LEG ASYM SWELLING. COMPARISON: Comparison venous sonography December 06, 2018. A comparison right lower extremity venous ultrasound from August 11, 2016 showed femoral vein and popliteal vein deep vein thrombosis.. TECHNIQUE: Right lower extremity duplex venous ultrasound. FINDINGS: There is a small focus of echogenic material along the wall of the proximal superficial femoral vein near its origin from the common femoral vein consistent with chronic thrombus or fibrosis. The deep veins are otherwise anechoic and fully compressible on two-dimensional scanning. Color flow and spectral Doppler interrogation are unremarkable throughout the right lower extremity deep veins.. IMPRESSION: A very small focus of increased echogenicity/wall thickening is seen in the proximal femoral vein on the right consistent with chronic venous thrombosis/fibrosis. Otherwise negative. No evidence of acute DVT.. <Electronically signed by Ryley Raman > 06/18/20 [id number]
== END ==
LOC: M RAD 13:25
DX: R60.9 Edema, unspecified (principal)

== ENCOUNTER → 2020-06-18 | Outpatient (REF) | payer MEDICARE, OTHER ==
[2020-06-18 09:30] LABS: HEMATOCRIT 42.1 % (42.0-52.0); HEMOGLOBIN 14.5 g/dl (13.5-17.5); MEAN CORPUSCULAR HGB CONC 34.4 g/dl (32.0-36.5); MEAN CORPUSCULAR VOLUME 92.9 fl (80.0-96.0); PLATELET COUNT, AUTOMATED 266 10^3/uL (150-450); RED BLOOD COUNT 4.53 10^6/uL (4.30-6.10); WHITE BLOOD COUNT 5.1 10^3/uL (4.0-10.0)
[2020-06-18 09:58] LABS: ALBUMIN 3.3 GM/DL (3.2-5.2); ALT/SGPT 16 U/L (12-78); BILIRUBIN,DIRECT 0.1 MG/DL (0.0-0.2); BILIRUBIN,TOTAL 0.4 MG/DL (0.2-1.0); BLOOD UREA NITROGEN 11 MG/DL (7-18); CALCIUM LEVEL 8.7 MG/DL (8.8-10.2); CARBON DIOXIDE LEVEL 28 MEQ/L (21-32); CHLORIDE LEVEL 104 MEQ/L (98-107); CREATININE FOR GFR 0.66 MG/DL (0.70-1.30); GLOMERULAR FILTRATION RATE > 60.0 (>42); GLUCOSE, FASTING 167 MG/DL (70-100); PHENYTOIN (DILANTIN) 24.7 UG/ML (10.0-20.0); SODIUM LEVEL 138 MEQ/L (136-145); TOTAL PROTEIN 6.7 GM/DL (6.4-8.2)
== END ==
LOC: SKLAB2 08:00
DX: R56.9 Unspecified convulsions (principal)

== ENCOUNTER → 2020-06-25 | Outpatient (REF) | payer MEDICARE | LOC: SKLAB2 08:36 | DX: G40.909 Epilepsy, unspecified, not intractable, without status epilepticus (principal); Z79.899 Other long term (current) drug therapy ==

== ENCOUNTER → 2020-07-08 | Outpatient (REF) | payer MEDICARE ==
[2020-07-08 09:07] LABS: HEMOGLOBIN 14.7 g/dl (13.5-17.5); MEAN CORPUSCULAR VOLUME 91.5 fl (80.0-96.0); PLATELET COUNT, AUTOMATED 258 10^3/uL (150-450); RED BLOOD COUNT 4.59 10^6/uL (4.30-6.10); WHITE BLOOD COUNT 6.6 10^3/uL (4.0-10.0)
[2020-07-08 09:21] LABS: BLOOD UREA NITROGEN 16 MG/DL (7-18); CALCIUM LEVEL 8.8 MG/DL (8.8-10.2); CARBON DIOXIDE LEVEL 28 MEQ/L (21-32); CHLORIDE LEVEL 105 MEQ/L (98-107); GLOMERULAR FILTRATION RATE > 60.0 (>42); GLUCOSE, FASTING 115 MG/DL (70-100); POTASSIUM SERUM 3.7 MEQ/L (3.5-5.1); SODIUM LEVEL 138 MEQ/L (136-145)
== END ==
LOC: SKLAB2 11:48
DX: I10 Essential (primary) hypertension (principal)

== ENCOUNTER → 2020-08-05 | Outpatient (REF) | payer MEDICARE ==
[2020-08-05 11:07] LABS: HEMATOCRIT 41.5 % (42.0-52.0); HEMOGLOBIN 14.5 g/dl (13.5-17.5); MEAN CORPUSCULAR HEMOGLOBIN 31.5 pg (27.0-33.0); MEAN CORPUSCULAR HGB CONC 34.9 g/dl (32.0-36.5); PLATELET COUNT, AUTOMATED 283 10^3/uL (150-450); RED BLOOD COUNT 4.61 10^6/uL (4.30-6.10); WHITE BLOOD COUNT 6.5 10^3/uL (4.0-10.0)
[2020-08-05 12:11] LABS: BLOOD UREA NITROGEN 13 MG/DL (7-18); CALCIUM LEVEL 8.5 MG/DL (8.8-10.2); CARBON DIOXIDE LEVEL 25 MEQ/L (21-32); CHLORIDE LEVEL 103 MEQ/L (98-107); GLOMERULAR FILTRATION RATE > 60.0 (>42); GLUCOSE, FASTING 88 MG/DL (70-100); POTASSIUM SERUM 3.9 MEQ/L (3.5-5.1); SODIUM LEVEL 138 MEQ/L (136-145)
== END ==
LOC: SKLAB2 13:15
DX: D64.9 Anemia, unspecified (principal)

== ENCOUNTER → 2020-09-09 | Outpatient (REF) | payer MEDICARE ==
[2020-09-09 09:49] LABS: HEMATOCRIT 41.8 % (42.0-52.0); HEMOGLOBIN 14.4 g/dl (13.5-17.5); MEAN CORPUSCULAR HEMOGLOBIN 31.1 pg (27.0-33.0); MEAN CORPUSCULAR HGB CONC 34.4 g/dl (32.0-36.5); MEAN CORPUSCULAR VOLUME 90.3 fl (80.0-96.0); PLATELET COUNT, AUTOMATED 237 10^3/uL (150-450); RED BLOOD COUNT 4.63 10^6/uL (4.30-6.10); WHITE BLOOD COUNT 5.2 10^3/uL (4.0-10.0)
[2020-09-09 10:27] LABS: BLOOD UREA NITROGEN 13 MG/DL (7-18); CALCIUM LEVEL 8.7 MG/DL (8.8-10.2); CARBON DIOXIDE LEVEL 25 MEQ/L (21-32); CHLORIDE LEVEL 104 MEQ/L (98-107); CREATININE FOR GFR 0.67 MG/DL (0.70-1.30); GLOMERULAR FILTRATION RATE > 60.0 (>42); GLUCOSE, FASTING 118 MG/DL (70-100); POTASSIUM SERUM 4.2 MEQ/L (3.5-5.1); SODIUM LEVEL 137 MEQ/L (136-145)
== END ==
LOC: SKLAB2 12:44
DX: I10 Essential (primary) hypertension (principal)

== ENCOUNTER → 2020-10-21 | Outpatient (REF) | payer MEDICARE ==
[2020-10-21 08:28] LABS: HEMATOCRIT 43.2 % (42.0-52.0); HEMOGLOBIN 15.1 g/dl (13.5-17.5); MEAN CORPUSCULAR HEMOGLOBIN 30.8 pg (27.0-33.0); PLATELET COUNT, AUTOMATED 250 10^3/uL (150-450); RED BLOOD COUNT 4.91 10^6/uL (4.30-6.10); WHITE BLOOD COUNT 5.5 10^3/uL (4.0-10.0)
[2020-10-21 08:52] LABS: BLOOD UREA NITROGEN 11 MG/DL (7-18); CALCIUM LEVEL 8.7 MG/DL (8.8-10.2); CARBON DIOXIDE LEVEL 27 MEQ/L (21-32); CHLORIDE LEVEL 105 MEQ/L (98-107); CREATININE FOR GFR 0.65 MG/DL (0.70-1.30); GLOMERULAR FILTRATION RATE > 60.0 (>42); GLUCOSE, FASTING 85 MG/DL (70-100); SODIUM LEVEL 138 MEQ/L (136-145)
== END ==
LOC: SKLAB4 11:03
PROVIDERS: ATTEND Neuromusculoskeletal Medicine & OMM
DX: D64.9 Anemia, unspecified (principal)

== ENCOUNTER → 2020-11-18 | Outpatient (REF) | payer MEDICARE ==
[2020-11-18 09:25] LABS: HEMATOCRIT 43.1 % (42.0-52.0); HEMOGLOBIN 14.9 g/dl (13.5-17.5); MEAN CORPUSCULAR HEMOGLOBIN 30.5 pg (27.0-33.0); MEAN CORPUSCULAR HGB CONC 34.6 g/dl (32.0-36.5); MEAN CORPUSCULAR VOLUME 88.3 fl (80.0-96.0); PLATELET COUNT, AUTOMATED 208 10^3/uL (150-450); RED BLOOD COUNT 4.88 10^6/uL (4.30-6.10); WHITE BLOOD COUNT 5.6 10^3/uL (4.0-10.0)
[2020-11-18 09:57] LABS: BLOOD UREA NITROGEN 14 MG/DL (7-18); CALCIUM LEVEL 8.9 MG/DL (8.8-10.2); CARBON DIOXIDE LEVEL 26 MEQ/L (21-32); CHLORIDE LEVEL 104 MEQ/L (98-107); CREATININE FOR GFR 0.67 MG/DL (0.70-1.30); GLOMERULAR FILTRATION RATE > 60.0 (>42); GLUCOSE, FASTING 77 MG/DL (70-100); POTASSIUM SERUM 4.1 MEQ/L (3.5-5.1); SODIUM LEVEL 139 MEQ/L (136-145)
== END ==
LOC: SKLAB4 06:20
PROVIDERS: ATTEND Neuromusculoskeletal Medicine & OMM
DX: I10 Essential (primary) hypertension (principal)

== ENCOUNTER → 2020-12-13 | Outpatient (REF) | payer MEDICARE | LOC: SKLAB4 07:22 | PROVIDERS: ATTEND Neuromusculoskeletal Medicine & OMM | DX: Z20.822 Contact with and (suspected) exposure to COVID-19 (principal) ==

== ENCOUNTER → 2020-12-14 | Outpatient (REF) | payer MEDICARE ==
[2020-12-14 21:39] LABS: HEMATOCRIT 44.9 % (42.0-52.0); HEMOGLOBIN 15.5 g/dl (13.5-17.5); MEAN CORPUSCULAR HEMOGLOBIN 30.2 pg (27.0-33.0); MEAN CORPUSCULAR HGB CONC 34.5 g/dl (32.0-36.5); MEAN CORPUSCULAR VOLUME 87.5 fl (80.0-96.0); PLATELET COUNT, AUTOMATED 204 10^3/uL (150-450); RED BLOOD COUNT 5.13 10^6/uL (4.30-6.10); WHITE BLOOD COUNT 5.2 10^3/uL (4.0-10.0)
[2020-12-14 22:02] LABS: ALBUMIN 3.3 GM/DL (3.2-5.2); ALT/SGPT 22 U/L (12-78); BILIRUBIN,TOTAL 0.7 MG/DL (0.2-1.0); BLOOD UREA NITROGEN 16 MG/DL (7-18); C REACTIVE PROTEIN QUANTITATIV 2.67 MG/DL (0.00-0.30); CALCIUM LEVEL 8.4 MG/DL (8.8-10.2); CARBON DIOXIDE LEVEL 26 MEQ/L (21-32); CHLORIDE LEVEL 103 MEQ/L (98-107); GLOMERULAR FILTRATION RATE > 60.0 (>42); GLUCOSE, FASTING 119 MG/DL (70-100); POTASSIUM SERUM 3.4 MEQ/L (3.5-5.1); SODIUM LEVEL 137 MEQ/L (136-145); TOTAL PROTEIN 7.7 GM/DL (6.4-8.2)
== END ==
LOC: SKLAB2 08:39
PROVIDERS: ATTEND Neuromusculoskeletal Medicine & OMM
DX: U07.1 COVID-19 (principal); Z79.899 Other long term (current) drug therapy

== ENCOUNTER → 2020-12-15 | Outpatient (REF) | payer MEDICARE ==
[~2020-12-15] MED LIST changes: +ACETAMINOPHEN TAB 650MG DOSE (2X325MG) PO ONE; +ALBUTEROL 90 MCG/ACT 8GM HFA INHALER INH PRN; +ALBUTEROL SULFATE 2.5 MG/0.5 ML INH NEB SOLN INH PRN; +BAMLANIVIMAB 700 MG, ETESEVIMAB 1,400 MG in NS 250 ML IV ONE; +EPINEPHrine INJ 1 MG/ML 1ML AMP IM PRN; +NS 1,000 ML IV SCH; +diphenhydrAMINE 50MG/ML VIAL (J1200) IV ONE; +diphenhydrAMINE 50MG/ML VIAL (J1200) IV PRN; +methylPREDNISolone 125MG 2ML VIAL IV ONE; +methylPREDNISolone 125MG 2ML VIAL IV PRN
== END ==
LOC: SKLAB2 07:38
PROVIDERS: ATTEND Neuromusculoskeletal Medicine & OMM
DX: U07.1 COVID-19 (principal)
CPT/HCPCS: J1200; J2930; M0245

== ENCOUNTER → 2020-12-16 | Outpatient (REF) | payer MEDICARE ==
[~2020-12-16] MED LIST changes: -ACETAMINOPHEN TAB 650MG DOSE (2X325MG) PO ONE; -ALBUTEROL 90 MCG/ACT 8GM HFA INHALER INH PRN; -ALBUTEROL SULFATE 2.5 MG/0.5 ML INH NEB SOLN INH PRN; -BAMLANIVIMAB 700 MG, ETESEVIMAB 1,400 MG in NS 250 ML IV ONE; -EPINEPHrine INJ 1 MG/ML 1ML AMP IM PRN; -NS 1,000 ML IV SCH; -diphenhydrAMINE 50MG/ML VIAL (J1200) IV ONE; -diphenhydrAMINE 50MG/ML VIAL (J1200) IV PRN; -methylPREDNISolone 125MG 2ML VIAL IV ONE; -methylPREDNISolone 125MG 2ML VIAL IV PRN
[2020-12-16 09:59] LABS: HEMATOCRIT 45.1 % (42.0-52.0); HEMOGLOBIN 15.6 g/dl (13.5-17.5); MEAN CORPUSCULAR HEMOGLOBIN 30.1 pg (27.0-33.0); MEAN CORPUSCULAR HGB CONC 34.6 g/dl (32.0-36.5); MEAN CORPUSCULAR VOLUME 87.1 fl (80.0-96.0); PLATELET COUNT, AUTOMATED 231 10^3/uL (150-450); RED BLOOD COUNT 5.18 10^6/uL (4.30-6.10); WHITE BLOOD COUNT 7.5 10^3/uL (4.0-10.0)
[2020-12-16 10:25] LABS: BLOOD UREA NITROGEN 16 MG/DL (7-18); CALCIUM LEVEL 8.8 MG/DL (8.8-10.2); CARBON DIOXIDE LEVEL 23 MEQ/L (21-32); CHLORIDE LEVEL 108 MEQ/L (98-107); CREATININE FOR GFR 0.73 MG/DL (0.70-1.30); GLOMERULAR FILTRATION RATE > 60.0 (>42); GLUCOSE, FASTING 131 MG/DL (70-100); SODIUM LEVEL 140 MEQ/L (136-145)
== END ==
LOC: SKLAB2 08:55
PROVIDERS: ATTEND Neuromusculoskeletal Medicine & OMM
DX: U07.1 COVID-19 (principal); I50.9 Heart failure, unspecified; R60.9 Edema, unspecified

== ENCOUNTER → 2020-12-18 | Outpatient (REF) | payer MEDICARE ==
[2020-12-18 11:50] LABS: HEMATOCRIT 40.4 % (42.0-52.0); MEAN CORPUSCULAR HEMOGLOBIN 30.7 pg (27.0-33.0); MEAN CORPUSCULAR HGB CONC 34.7 g/dl (32.0-36.5); MEAN CORPUSCULAR VOLUME 88.6 fl (80.0-96.0); PLATELET COUNT, AUTOMATED 232 10^3/uL (150-450); RED BLOOD COUNT 4.56 10^6/uL (4.30-6.10); WHITE BLOOD COUNT 10.4 10^3/uL (4.0-10.0)
[2020-12-18 12:32] LABS: ALBUMIN 3.1 GM/DL (3.2-5.2); ALT/SGPT 24 U/L (12-78); BILIRUBIN,TOTAL 0.7 MG/DL (0.2-1.0); BLOOD UREA NITROGEN 21 MG/DL (7-18); CALCIUM LEVEL 8.5 MG/DL (8.8-10.2); CARBON DIOXIDE LEVEL 25 MEQ/L (21-32); CHLORIDE LEVEL 106 MEQ/L (98-107); CREATININE FOR GFR 0.71 MG/DL (0.70-1.30); GLOMERULAR FILTRATION RATE > 60.0 (>42); GLUCOSE, FASTING 101 MG/DL (70-100); POTASSIUM SERUM 3.6 MEQ/L (3.5-5.1); SODIUM LEVEL 140 MEQ/L (136-145); TOTAL PROTEIN 6.5 GM/DL (6.4-8.2)
== END ==
LOC: SKLAB2 07:00
PROVIDERS: ATTEND Neuromusculoskeletal Medicine & OMM
DX: U07.1 COVID-19 (principal); Z79.899 Other long term (current) drug therapy

== ENCOUNTER → 2020-12-22 | Outpatient (REF) | payer MEDICARE ==
[2020-12-22 13:07] LABS: HEMATOCRIT 37.1 % (42.0-52.0); HEMOGLOBIN 12.6 g/dl (13.5-17.5); MEAN CORPUSCULAR HEMOGLOBIN 30.2 pg (27.0-33.0); PLATELET COUNT, AUTOMATED 261 10^3/uL (150-450); RED BLOOD COUNT 4.17 10^6/uL (4.30-6.10); WHITE BLOOD COUNT 8.7 10^3/uL (4.0-10.0)
[2020-12-22 15:00] LABS: ALBUMIN 2.5 GM/DL (3.2-5.2); ALT/SGPT 21 U/L (12-78); BILIRUBIN,TOTAL 1.3 MG/DL (0.2-1.0); BLOOD UREA NITROGEN 14 MG/DL (7-18); CALCIUM LEVEL 8.6 MG/DL (8.8-10.2); CARBON DIOXIDE LEVEL 27 MEQ/L (21-32); CHLORIDE LEVEL 104 MEQ/L (98-107); CREATININE FOR GFR 0.59 MG/DL (0.70-1.30); GLOMERULAR FILTRATION RATE > 60.0 (>42); GLUCOSE, FASTING 88 MG/DL (70-100); POTASSIUM SERUM 4.2 MEQ/L (3.5-5.1); SODIUM LEVEL 138 MEQ/L (136-145); TOTAL PROTEIN 5.7 GM/DL (6.4-8.2)
== END ==
LOC: SKLAB2 09:47
PROVIDERS: ATTEND Neuromusculoskeletal Medicine & OMM
DX: U07.1 COVID-19 (principal); Z79.899 Other long term (current) drug therapy

== ENCOUNTER → 2020-12-24 | Outpatient (REF) | payer MEDICARE ==
[2020-12-24 11:43] LABS: HEMATOCRIT 35.8 % (42.0-52.0); HEMOGLOBIN 12.4 g/dl (13.5-17.5); MEAN CORPUSCULAR HEMOGLOBIN 30.5 pg (27.0-33.0); MEAN CORPUSCULAR HGB CONC 34.6 g/dl (32.0-36.5); MEAN CORPUSCULAR VOLUME 88.2 fl (80.0-96.0); PLATELET COUNT, AUTOMATED 311 10^3/uL (150-450); RED BLOOD COUNT 4.06 10^6/uL (4.30-6.10); WHITE BLOOD COUNT 7.9 10^3/uL (4.0-10.0)
[2020-12-24 12:15] LABS: ALBUMIN 2.9 GM/DL (3.2-5.2); ALT/SGPT 21 U/L (12-78); BILIRUBIN,TOTAL 1.3 MG/DL (0.2-1.0); BLOOD UREA NITROGEN 13 MG/DL (7-18); CALCIUM LEVEL 8.8 MG/DL (8.8-10.2); CARBON DIOXIDE LEVEL 25 MEQ/L (21-32); CHLORIDE LEVEL 105 MEQ/L (98-107); CREATININE FOR GFR 0.67 MG/DL (0.70-1.30); GLOMERULAR FILTRATION RATE > 60.0 (>42); GLUCOSE, FASTING 124 MG/DL (70-100); POTASSIUM SERUM 4.2 MEQ/L (3.5-5.1); SODIUM LEVEL 136 MEQ/L (136-145); TOTAL PROTEIN 6.2 GM/DL (6.4-8.2)
== END ==
LOC: SKLAB4 09:46
PROVIDERS: ATTEND Neuromusculoskeletal Medicine & OMM
DX: U07.1 COVID-19 (principal); Z79.899 Other long term (current) drug therapy

== ENCOUNTER → 2021-01-20 | Outpatient (REF) | payer MEDICARE ==
[2021-01-20 09:46] LABS: HEMATOCRIT 42.7 % (42.0-52.0); HEMOGLOBIN 14.6 g/dl (13.5-17.5); MEAN CORPUSCULAR HEMOGLOBIN 30.9 pg (27.0-33.0); MEAN CORPUSCULAR HGB CONC 34.2 g/dl (32.0-36.5); MEAN CORPUSCULAR VOLUME 90.3 fl (80.0-96.0); PLATELET COUNT, AUTOMATED 296 10^3/uL (150-450); RED BLOOD COUNT 4.73 10^6/uL (4.30-6.10)
[2021-01-20 10:51] LABS: BLOOD UREA NITROGEN 13 MG/DL (7-18); CALCIUM LEVEL 9.2 MG/DL (8.8-10.2); CARBON DIOXIDE LEVEL 26 MEQ/L (21-32); CHLORIDE LEVEL 104 MEQ/L (98-107); CREATININE FOR GFR 0.84 MG/DL (0.70-1.30); GLOMERULAR FILTRATION RATE > 60.0 (>42); GLUCOSE, FASTING 103 MG/DL (70-100); POTASSIUM SERUM 3.8 MEQ/L (3.5-5.1); SODIUM LEVEL 139 MEQ/L (136-145)
== END ==
LOC: SKLAB4 08:00
PROVIDERS: ATTEND Neuromusculoskeletal Medicine & OMM
DX: I10 Essential (primary) hypertension (principal); G40.909 Epilepsy, unspecified, not intractable, without status epilepticus; Z79.899 Other long term (current) drug therapy

== ENCOUNTER → 2021-01-29 | Outpatient (REF) | payer MEDICARE ==
[2021-01-29 11:04] LABS: HEMOGLOBIN 15.9 g/dl (13.5-17.5); MEAN CORPUSCULAR HEMOGLOBIN 30.7 pg (27.0-33.0); MEAN CORPUSCULAR HGB CONC 35.3 g/dl (32.0-36.5); MEAN CORPUSCULAR VOLUME 86.9 fl (80.0-96.0); PLATELET COUNT, AUTOMATED 299 10^3/uL (150-450); RED BLOOD COUNT 5.18 10^6/uL (4.30-6.10); WHITE BLOOD COUNT 8.6 10^3/uL (4.0-10.0)
[2021-01-29 12:16] LABS: BLOOD UREA NITROGEN 21 MG/DL (7-18); CARBON DIOXIDE LEVEL 27 MEQ/L (21-32); CHLORIDE LEVEL 93 MEQ/L (98-107); CREATININE FOR GFR 0.98 MG/DL (0.70-1.30); GLOMERULAR FILTRATION RATE > 60.0 (>42); GLUCOSE, FASTING 100 MG/DL (70-100); NT-PRO BNP 111 PG/ML (<125); POTASSIUM SERUM 2.9 MEQ/L (3.5-5.1); SODIUM LEVEL 132 MEQ/L (136-145)
== END ==
LOC: SKLAB4 07:00
PROVIDERS: ATTEND Neuromusculoskeletal Medicine & OMM
DX: I50.9 Heart failure, unspecified (principal)

== ENCOUNTER → 2021-01-30 | Outpatient (REF) | payer MEDICARE ==
[2021-01-30 09:25] LABS: CALCIUM LEVEL 9.2 MG/DL (8.8-10.2); CARBON DIOXIDE LEVEL 29 MEQ/L (21-32); CHLORIDE LEVEL 96 MEQ/L (98-107); CREATININE FOR GFR 1.09 MG/DL (0.70-1.30); GLOMERULAR FILTRATION RATE > 60.0 (>42); GLUCOSE, FASTING 107 MG/DL (70-100); SODIUM LEVEL 137 MEQ/L (136-145)
[2021-01-30 09:26] LABS: BLOOD UREA NITROGEN 33 MG/DL (7-18)
== END ==
LOC: SKLAB4 07:00
PROVIDERS: ATTEND Neuromusculoskeletal Medicine & OMM
DX: E87.6 Hypokalemia (principal); S81.801A Unspecified open wound, right lower leg, initial encounter

== ENCOUNTER → 2021-02-02 | Outpatient (REF) | payer MEDICARE | LOC: SKLAB4 06:53 | PROVIDERS: ATTEND Neuromusculoskeletal Medicine & OMM | DX: E87.6 Hypokalemia (principal) ==

== ENCOUNTER → 2021-03-04 | Outpatient (REF) | payer MEDICARE ==
[2021-03-04 08:29] LABS: BLOOD UREA NITROGEN 16 MG/DL (7-18); CALCIUM LEVEL 8.7 MG/DL (8.8-10.2); CARBON DIOXIDE LEVEL 22 MEQ/L (21-32); CHLORIDE LEVEL 107 MEQ/L (98-107); CREATININE FOR GFR 0.88 MG/DL (0.70-1.30); GLOMERULAR FILTRATION RATE > 60.0 (>42); GLUCOSE, FASTING 86 MG/DL (70-100); POTASSIUM SERUM 4.4 MEQ/L (3.5-5.1); SODIUM LEVEL 138 MEQ/L (136-145)
== END ==
LOC: SKLAB4 07:00
PROVIDERS: ATTEND Neuromusculoskeletal Medicine & OMM
DX: N17.9 Acute kidney failure, unspecified (principal)

== ENCOUNTER → 2021-04-16 | Outpatient (REF) | payer MEDICARE ==
[2021-04-16 11:14] LABS: HEMATOCRIT 43.1 % (42.0-52.0); HEMOGLOBIN 14.5 g/dl (13.5-17.5); MEAN CORPUSCULAR HEMOGLOBIN 29.8 pg (27.0-33.0); MEAN CORPUSCULAR HGB CONC 33.6 g/dl (32.0-36.5); MEAN CORPUSCULAR VOLUME 88.7 fl (80.0-96.0); PLATELET COUNT, AUTOMATED 241 10^3/uL (150-450); RED BLOOD COUNT 4.86 10^6/uL (4.30-6.10); WHITE BLOOD COUNT 5.2 10^3/uL (4.0-10.0)
[2021-04-16 11:38] LABS: BLOOD UREA NITROGEN 16 MG/DL (7-18); CARBON DIOXIDE LEVEL 27 MEQ/L (21-32); CHLORIDE LEVEL 106 MEQ/L (98-107); CREATININE FOR GFR 0.75 MG/DL (0.70-1.30); GLOMERULAR FILTRATION RATE > 60.0 (>42); GLUCOSE, FASTING 112 MG/DL (70-100); POTASSIUM SERUM 3.7 MEQ/L (3.5-5.1); SODIUM LEVEL 139 MEQ/L (136-145)
== END ==
LOC: SKLAB4 07:00
PROVIDERS: ATTEND Neuromusculoskeletal Medicine & OMM
DX: I50.9 Heart failure, unspecified (principal)

== ENCOUNTER → 2021-05-14 | Outpatient (REF) | payer MEDICARE, OTHER | LOC: SKLAB4 07:00 | PROVIDERS: ATTEND Neuromusculoskeletal Medicine & OMM | DX: I50.9 Heart failure, unspecified (principal); I11.0 Hypertensive heart disease with heart failure; G40.909 Epilepsy, unspecified, not intractable, without status epilepticus ==

== ENCOUNTER → 2021-05-21 | Outpatient (REF) | payer MEDICARE, OTHER ==
[2021-05-21 10:26] LABS: HEMOGLOBIN 14.5 g/dl (13.5-17.5); MEAN CORPUSCULAR HEMOGLOBIN 29.8 pg (27.0-33.0); MEAN CORPUSCULAR HGB CONC 34.5 g/dl (32.0-36.5); MEAN CORPUSCULAR VOLUME 86.4 fl (80.0-96.0); PLATELET COUNT, AUTOMATED 258 10^3/uL (150-450); RED BLOOD COUNT 4.86 10^6/uL (4.30-6.10); WHITE BLOOD COUNT 5.6 10^3/uL (4.0-10.0)
[2021-05-21 10:45] LABS: BLOOD UREA NITROGEN 16 MG/DL (7-18); CALCIUM LEVEL 8.6 MG/DL (8.8-10.2); CARBON DIOXIDE LEVEL 28 MEQ/L (21-32); CHLORIDE LEVEL 106 MEQ/L (98-107); GLOMERULAR FILTRATION RATE > 60.0 (>42); GLUCOSE, FASTING 139 MG/DL (70-100); POTASSIUM SERUM 4.2 MEQ/L (3.5-5.1); SODIUM LEVEL 139 MEQ/L (136-145)
== END ==
LOC: SKLAB7 07:00
PROVIDERS: ATTEND Neuromusculoskeletal Medicine & OMM
DX: G40.909 Epilepsy, unspecified, not intractable, without status epilepticus (principal); I11.0 Hypertensive heart disease with heart failure; I50.9 Heart failure, unspecified

== ENCOUNTER → 2021-06-16 | Outpatient (REF) | payer MEDICARE, OTHER ==
[2021-06-16 12:00] LABS: HEMATOCRIT 43.8 % (42.0-52.0); HEMOGLOBIN 14.8 g/dl (13.5-17.5); MEAN CORPUSCULAR HEMOGLOBIN 29.7 pg (27.0-33.0); MEAN CORPUSCULAR HGB CONC 33.8 g/dl (32.0-36.5); MEAN CORPUSCULAR VOLUME 87.8 fl (80.0-96.0); PLATELET COUNT, AUTOMATED 264 10^3/uL (150-450); RED BLOOD COUNT 4.99 10^6/uL (4.30-6.10); WHITE BLOOD COUNT 5.7 10^3/uL (4.0-10.0)
[2021-06-16 12:21] LABS: BLOOD UREA NITROGEN 24 MG/DL (7-18); CARBON DIOXIDE LEVEL 27 MEQ/L (21-32); CHLORIDE LEVEL 107 MEQ/L (98-107); CREATININE FOR GFR 0.64 MG/DL (0.70-1.30); GLOMERULAR FILTRATION RATE > 60.0 (>42); GLUCOSE, FASTING 85 MG/DL (70-100); POTASSIUM SERUM 4.2 MEQ/L (3.5-5.1); SODIUM LEVEL 140 MEQ/L (136-145)
== END ==
LOC: SKLAB4 11:11
PROVIDERS: ATTEND Neuromusculoskeletal Medicine & OMM
DX: I11.0 Hypertensive heart disease with heart failure (principal); I50.9 Heart failure, unspecified

== ENCOUNTER → 2021-07-16 | Outpatient (REF) | payer MEDICARE, OTHER ==
[2021-07-16 11:22] LABS: HEMATOCRIT 45.1 % (42.0-52.0); HEMOGLOBIN 15.1 g/dl (13.5-17.5); MEAN CORPUSCULAR HEMOGLOBIN 29.8 pg (27.0-33.0); MEAN CORPUSCULAR HGB CONC 33.5 g/dl (32.0-36.5); PLATELET COUNT, AUTOMATED 203 10^3/uL (150-450); RED BLOOD COUNT 5.07 10^6/uL (4.30-6.10); WHITE BLOOD COUNT 5.3 10^3/uL (4.0-10.0)
[2021-07-16 12:09] LABS: BLOOD UREA NITROGEN 23 MG/DL (7-18); CALCIUM LEVEL 8.9 MG/DL (8.8-10.2); CARBON DIOXIDE LEVEL 25 MEQ/L (21-32); CHLORIDE LEVEL 106 MEQ/L (98-107); CREATININE FOR GFR 0.82 MG/DL (0.70-1.30); GLOMERULAR FILTRATION RATE > 60.0 (>42); GLUCOSE, FASTING 110 MG/DL (70-100); POTASSIUM SERUM 4.1 MEQ/L (3.5-5.1); SODIUM LEVEL 139 MEQ/L (136-145)
== END ==
LOC: SKLAB4 14:07
PROVIDERS: ATTEND Neuromusculoskeletal Medicine & OMM
DX: I11.0 Hypertensive heart disease with heart failure (principal); I50.9 Heart failure, unspecified; E11.9 Type 2 diabetes mellitus without complications

== ENCOUNTER → 2021-08-13 | Outpatient (REF) | payer MEDICARE ==
[2021-08-13 09:52] LABS: HEMATOCRIT 45.2 % (42.0-52.0); HEMOGLOBIN 15.6 g/dl (13.5-17.5); MEAN CORPUSCULAR HEMOGLOBIN 30.2 pg (27.0-33.0); MEAN CORPUSCULAR HGB CONC 34.5 g/dl (32.0-36.5); MEAN CORPUSCULAR VOLUME 87.6 fl (80.0-96.0); PLATELET COUNT, AUTOMATED 230 10^3/uL (150-450); RED BLOOD COUNT 5.16 10^6/uL (4.30-6.10); WHITE BLOOD COUNT 5.5 10^3/uL (4.0-10.0)
[2021-08-13 10:17] LABS: BLOOD UREA NITROGEN 25 MG/DL (7-18); CALCIUM LEVEL 9.3 MG/DL (8.8-10.2); CARBON DIOXIDE LEVEL 23 MEQ/L (21-32); CHLORIDE LEVEL 106 MEQ/L (98-107); CREATININE FOR GFR 0.84 MG/DL (0.70-1.30); GLOMERULAR FILTRATION RATE > 60.0 (>42); GLUCOSE, FASTING 149 MG/DL (70-100); SODIUM LEVEL 137 MEQ/L (136-145)
== END ==
LOC: SKLAB4 14:07
PROVIDERS: ATTEND Neuromusculoskeletal Medicine & OMM
DX: I11.0 Hypertensive heart disease with heart failure (principal); I50.9 Heart failure, unspecified

== ENCOUNTER → 2021-09-17 | Outpatient (REF) | payer MEDICARE ==
[2021-09-17 09:53] LABS: HEMATOCRIT 46.1 % (42.0-52.0); HEMOGLOBIN 15.8 g/dl (13.5-17.5); MEAN CORPUSCULAR HEMOGLOBIN 29.9 pg (27.0-33.0); MEAN CORPUSCULAR HGB CONC 34.3 g/dl (32.0-36.5); MEAN CORPUSCULAR VOLUME 87.3 fl (80.0-96.0); PLATELET COUNT, AUTOMATED 237 10^3/uL (150-450); RED BLOOD COUNT 5.28 10^6/uL (4.30-6.10); WHITE BLOOD COUNT 6.4 10^3/uL (4.0-10.0)
[2021-09-17 10:28] LABS: BLOOD UREA NITROGEN 24 MG/DL (7-18); CALCIUM LEVEL 8.6 MG/DL (8.8-10.2); CARBON DIOXIDE LEVEL 27 MEQ/L (21-32); CHLORIDE LEVEL 106 MEQ/L (98-107); CREATININE FOR GFR 0.68 MG/DL (0.70-1.30); GLOMERULAR FILTRATION RATE > 60.0 (>42); GLUCOSE, FASTING 79 MG/DL (70-100); POTASSIUM SERUM 3.9 MEQ/L (3.5-5.1); SODIUM LEVEL 138 MEQ/L (136-145)
== END ==
LOC: SKLAB4 06:00
PROVIDERS: ATTEND Neuromusculoskeletal Medicine & OMM
DX: I50.9 Heart failure, unspecified (principal); I11.0 Hypertensive heart disease with heart failure

== ENCOUNTER → 2021-10-16 | Outpatient (REF) | payer MEDICARE ==
[2021-10-15 09:55] LABS: HEMATOCRIT 43.2 % (42.0-52.0); HEMOGLOBIN 14.9 g/dl (13.5-17.5); MEAN CORPUSCULAR HEMOGLOBIN 30.5 pg (27.0-33.0); MEAN CORPUSCULAR HGB CONC 34.5 g/dl (32.0-36.5); MEAN CORPUSCULAR VOLUME 88.3 fl (80.0-96.0); PLATELET COUNT, AUTOMATED 210 10^3/uL (150-450); RED BLOOD COUNT 4.89 10^6/uL (4.30-6.10)
[2021-10-15 10:37] LABS: BLOOD UREA NITROGEN 18 MG/DL (7-18); CALCIUM LEVEL 8.7 MG/DL (8.8-10.2); CARBON DIOXIDE LEVEL 24 MEQ/L (21-32); CHLORIDE LEVEL 105 MEQ/L (98-107); CREATININE FOR GFR 0.78 MG/DL (0.70-1.30); GLOMERULAR FILTRATION RATE > 60.0 (>42); GLUCOSE, FASTING 147 MG/DL (70-100); POTASSIUM SERUM 3.9 MEQ/L (3.5-5.1); SODIUM LEVEL 136 MEQ/L (136-145)
== END ==
LOC: SKLAB4 11:41
PROVIDERS: ATTEND Neuromusculoskeletal Medicine & OMM
DX: I11.0 Hypertensive heart disease with heart failure (principal); I50.9 Heart failure, unspecified

== ENCOUNTER → 2021-11-12 | Outpatient (REF) | payer MEDICARE ==
[2021-11-12 10:57] LABS: HEMATOCRIT 43.4 % (42.0-52.0); HEMOGLOBIN 14.9 g/dl (13.5-17.5); MEAN CORPUSCULAR HEMOGLOBIN 30.5 pg (27.0-33.0); MEAN CORPUSCULAR HGB CONC 34.3 g/dl (32.0-36.5); MEAN CORPUSCULAR VOLUME 88.9 fl (80.0-96.0); PLATELET COUNT, AUTOMATED 229 10^3/uL (150-450); RED BLOOD COUNT 4.88 10^6/uL (4.30-6.10); WHITE BLOOD COUNT 5.7 10^3/uL (4.0-10.0)
[2021-11-12 11:39] LABS: BLOOD UREA NITROGEN 19 MG/DL (7-18); CALCIUM LEVEL 8.9 MG/DL (8.8-10.2); CARBON DIOXIDE LEVEL 27 MEQ/L (21-32); CHLORIDE LEVEL 104 MEQ/L (98-107); CREATININE FOR GFR 0.72 MG/DL (0.70-1.30); GLOMERULAR FILTRATION RATE > 60.0 (>42); GLUCOSE, FASTING 107 MG/DL (70-100); SODIUM LEVEL 137 MEQ/L (136-145)
== END ==
LOC: SKLAB4 07:00
PROVIDERS: ATTEND Neuromusculoskeletal Medicine & OMM
DX: I11.0 Hypertensive heart disease with heart failure (principal); I50.9 Heart failure, unspecified

== ENCOUNTER → 2021-12-17 | Outpatient (REF) | payer MEDICARE ==
[2021-12-17 13:07] LABS: HEMATOCRIT 41.5 % (42.0-52.0); HEMOGLOBIN 14.1 g/dl (13.5-17.5); MEAN CORPUSCULAR HEMOGLOBIN 30.7 pg (27.0-33.0); MEAN CORPUSCULAR VOLUME 90.2 fl (80.0-96.0); PLATELET COUNT, AUTOMATED 209 10^3/uL (150-450); WHITE BLOOD COUNT 7.8 10^3/uL (4.0-10.0)
[2021-12-17 13:39] LABS: BLOOD UREA NITROGEN 25 MG/DL (7-18); CALCIUM LEVEL 8.6 MG/DL (8.8-10.2); CARBON DIOXIDE LEVEL 25 MEQ/L (21-32); CHLORIDE LEVEL 106 MEQ/L (98-107); CREATININE FOR GFR 0.68 MG/DL (0.70-1.30); GLOMERULAR FILTRATION RATE > 60.0 (>42); GLUCOSE, FASTING 124 MG/DL (70-100); POTASSIUM SERUM 4.1 MEQ/L (3.5-5.1); SODIUM LEVEL 138 MEQ/L (136-145)
== END ==
LOC: SKLAB4 12:16
PROVIDERS: ATTEND Neuromusculoskeletal Medicine & OMM
DX: I11.0 Hypertensive heart disease with heart failure (principal)

== ENCOUNTER → 2022-01-13 | Outpatient (REF) | payer MEDICARE ==
[2022-01-13 07:59] LABS: HEMATOCRIT 46.5 % (42.0-52.0); HEMOGLOBIN 15.7 g/dl (13.5-17.5); MEAN CORPUSCULAR HEMOGLOBIN 30.1 pg (27.0-33.0); MEAN CORPUSCULAR HGB CONC 33.8 g/dl (32.0-36.5); MEAN CORPUSCULAR VOLUME 89.1 fl (80.0-96.0); PLATELET COUNT, AUTOMATED 228 10^3/uL (150-450); RED BLOOD COUNT 5.22 10^6/uL (4.30-6.10); WHITE BLOOD COUNT 6.7 10^3/uL (4.0-10.0)
[2022-01-13 08:29] LABS: BLOOD UREA NITROGEN 24 MG/DL (9-23); CALCIUM LEVEL 8.5 MG/DL (8.3-10.6); CARBON DIOXIDE LEVEL 26 MMOL/L (20-31); CHLORIDE LEVEL 104 MMOL/L (98-107); CREATININE FOR GFR 0.62 MG/DL (0.70-1.30); GLOMERULAR FILTRATION RATE > 60.0 (>42); GLUCOSE, FASTING 91 MG/DL (74-106); POTASSIUM SERUM 4.2 MMOL/L (3.5-5.1); SODIUM LEVEL 138 MMOL/L (136-145)
== END ==
LOC: SKLAB4 08:32
PROVIDERS: ATTEND Nurse Practitioner Adult Health
DX: G40.909 Epilepsy, unspecified, not intractable, without status epilepticus (principal); I11.0 Hypertensive heart disease with heart failure; I50.9 Heart failure, unspecified

== ENCOUNTER → 2022-02-17 | Outpatient (REF) | payer MEDICARE ==
[2022-02-17 08:15] LABS: HEMATOCRIT 45.8 % (42.0-52.0); HEMOGLOBIN 15.7 g/dl (13.5-17.5); MEAN CORPUSCULAR HEMOGLOBIN 30.4 pg (27.0-33.0); MEAN CORPUSCULAR HGB CONC 34.3 g/dl (32.0-36.5); MEAN CORPUSCULAR VOLUME 88.8 fl (80.0-96.0); PLATELET COUNT, AUTOMATED 207 10^3/uL (150-450); RED BLOOD COUNT 5.16 10^6/uL (4.30-6.10); WHITE BLOOD COUNT 5.5 10^3/uL (4.0-10.0)
[2022-02-17 08:40] LABS: BLOOD UREA NITROGEN 18 MG/DL (9-23); CALCIUM LEVEL 8.5 MG/DL (8.3-10.6); CARBON DIOXIDE LEVEL 26 MMOL/L (20-31); CHLORIDE LEVEL 104 MMOL/L (98-107); CREATININE FOR GFR 0.61 MG/DL (0.70-1.30); GLOMERULAR FILTRATION RATE > 60.0 (>42); GLUCOSE, FASTING 82 MG/DL (74-106); POTASSIUM SERUM 4.3 MMOL/L (3.5-5.1); SODIUM LEVEL 138 MMOL/L (136-145)
== END ==
LOC: SKLAB4 09:06
PROVIDERS: ATTEND Nurse Practitioner Adult Health
DX: I11.0 Hypertensive heart disease with heart failure (principal); I50.9 Heart failure, unspecified

== ENCOUNTER → 2022-03-17 | Outpatient (REF) | payer MEDICARE ==
[2022-03-17 07:35] LABS: HEMATOCRIT 44.8 % (42.0-52.0); HEMOGLOBIN 15.3 g/dl (13.5-17.5); MEAN CORPUSCULAR HEMOGLOBIN 30.4 pg (27.0-33.0); MEAN CORPUSCULAR HGB CONC 34.2 g/dl (32.0-36.5); MEAN CORPUSCULAR VOLUME 89.1 fl (80.0-96.0); PLATELET COUNT, AUTOMATED 208 10^3/uL (150-450); RED BLOOD COUNT 5.03 10^6/uL (4.30-6.10); WHITE BLOOD COUNT 5.5 10^3/uL (4.0-10.0)
[2022-03-17 08:02] LABS: BLOOD UREA NITROGEN 25 MG/DL (9-23); CALCIUM LEVEL 8.6 MG/DL (8.3-10.6); CARBON DIOXIDE LEVEL 25 MMOL/L (20-31); CHLORIDE LEVEL 105 MMOL/L (98-107); CREATININE FOR GFR 0.64 MG/DL (0.70-1.30); GLOMERULAR FILTRATION RATE > 60.0 (>42); GLUCOSE, FASTING 81 MG/DL (74-106); POTASSIUM SERUM 4.7 MMOL/L (3.5-5.1); SODIUM LEVEL 140 MMOL/L (136-145)
== END ==
LOC: SKLAB4 12:02
PROVIDERS: ATTEND Internal Medicine
DX: I11.0 Hypertensive heart disease with heart failure (principal); I50.9 Heart failure, unspecified

== ENCOUNTER → 2022-04-14 | Outpatient (REF) | payer MEDICARE, OTHER ==
[2022-04-14 07:18] LABS: HEMATOCRIT 43.4 % (42.0-52.0); HEMOGLOBIN 15.1 g/dl (13.5-17.5); MEAN CORPUSCULAR HEMOGLOBIN 30.9 pg (27.0-33.0); MEAN CORPUSCULAR HGB CONC 34.8 g/dl (32.0-36.5); MEAN CORPUSCULAR VOLUME 88.8 fl (80.0-96.0); PLATELET COUNT, AUTOMATED 224 10^3/uL (150-450); RED BLOOD COUNT 4.89 10^6/uL (4.30-6.10); WHITE BLOOD COUNT 6.3 10^3/uL (4.0-10.0)
[2022-04-14 07:40] LABS: BLOOD UREA NITROGEN 28 MG/DL (9-23); CALCIUM LEVEL 8.6 MG/DL (8.3-10.6); CARBON DIOXIDE LEVEL 27 MMOL/L (20-31); CHLORIDE LEVEL 103 MMOL/L (98-107); CREATININE FOR GFR 0.59 MG/DL (0.70-1.30); GLOMERULAR FILTRATION RATE > 60.0 (>42); GLUCOSE, FASTING 95 MG/DL (74-106); POTASSIUM SERUM 4.2 MMOL/L (3.5-5.1); SODIUM LEVEL 136 MMOL/L (136-145)
== END ==
LOC: SKLAB4 11:54
PROVIDERS: ATTEND Nurse Practitioner Adult Health
DX: I11.0 Hypertensive heart disease with heart failure (principal); I50.9 Heart failure, unspecified

== ENCOUNTER → 2022-05-12 | Outpatient (REF) | payer MEDICARE, OTHER ==
[2022-05-12 09:07] LABS: HEMATOCRIT 43.6 % (42.0-52.0); HEMOGLOBIN 15.1 g/dl (13.5-17.5); MEAN CORPUSCULAR HGB CONC 34.6 g/dl (32.0-36.5); MEAN CORPUSCULAR VOLUME 89.5 fl (80.0-96.0); PLATELET COUNT, AUTOMATED 233 10^3/uL (150-450); RED BLOOD COUNT 4.87 10^6/uL (4.30-6.10); WHITE BLOOD COUNT 6.7 10^3/uL (4.0-10.0)
[2022-05-12 09:32] LABS: BLOOD UREA NITROGEN 18 MG/DL (9-23); CARBON DIOXIDE LEVEL 26 MMOL/L (20-31); CHLORIDE LEVEL 103 MMOL/L (98-107); CREATININE FOR GFR 0.56 MG/DL (0.70-1.30); GLOMERULAR FILTRATION RATE > 60.0 (>42); GLUCOSE, FASTING 87 MG/DL (74-106); POTASSIUM SERUM 4.1 MMOL/L (3.5-5.1); SODIUM LEVEL 136 MMOL/L (136-145)
== END ==
LOC: SKLAB4 09:45
PROVIDERS: ATTEND Nurse Practitioner Adult Health
DX: I11.0 Hypertensive heart disease with heart failure (principal); I50.9 Heart failure, unspecified; G40.909 Epilepsy, unspecified, not intractable, without status epilepticus

== ENCOUNTER 2022-06-03 07:45 | Day surgery (SDC) | payer MEDICARE ==
[~2022-06-03] VITALS: Ht 167.6 cm; Wt 108.0 kg
[~2022-06-03 07:45] MED LIST changes: +ASPI81CH33 PO; +ELIQ5TAB PO; +FOLI1TAB11 PO; +LEVE250T5 PO; +LISI10TA22 PO; +NS 1,000 ML IV ONE
[2022-06-03] MEDS ORDERED: fentaNYL 100 MCG/2 ML INJECTION As Ordered ONE (08:46)
[2022-06-03] MEDS ORDERED: LIDOCAINE 2% MDV 20ML VIAL As Ordered ONE (09:00)
[2022-06-03] MEDS ORDERED: GLYCOPYRROLATE INJ 0.2 MG/ML 2 ML VIAL As Ordered ONE (09:00)
[2022-06-03] MEDS ORDERED: propofoL 200 MG/20 ML VIAL As Ordered ONE (09:00)
[2022-06-03 10:09] VITALS: BP 146/73
== END 2022-06-03 10:10 | disposition home or self-care (01) ==
LOC: M OPP 07:45
PROVIDERS: ATTEND Internal Medicine Gastroenterology
DX: Z86.010 Personal history of colon polyps (principal); Z80.0 Family history of malignant neoplasm of digestive organs; K63.5 Polyp of colon; K64.8 Other hemorrhoids; K57.30 Diverticulosis of large intestine without perforation or abscess without bleeding; I50.9 Heart failure, unspecified; I73.9 Peripheral vascular disease, unspecified; G47.33 Obstructive sleep apnea (adult) (pediatric); Z99.89 Dependence on other enabling machines and devices; Z79.1 Long term (current) use of non-steroidal anti-inflammatories (NSAID); Z79.82 Long term (current) use of aspirin; Z79.899 Other long term (current) drug therapy; Z88.0 Allergy status to penicillin; Z91.018 Allergy to other foods; Z86.718 Personal history of other venous thrombosis and embolism
CPT/HCPCS: 45385; 88305; J3010

== ENCOUNTER → 2022-06-09 | Outpatient (REF) | payer MEDICARE ==
[~2022-06-09] MED LIST changes: -NS 1,000 ML IV ONE
[2022-06-09 12:08] LABS: HEMATOCRIT 43.9 % (42.0-52.0); HEMOGLOBIN 15.1 g/dl (13.5-17.5); MEAN CORPUSCULAR HEMOGLOBIN 30.6 pg (27.0-33.0); MEAN CORPUSCULAR HGB CONC 34.4 g/dl (32.0-36.5); PLATELET COUNT, AUTOMATED 250 10^3/uL (150-450); RED BLOOD COUNT 4.93 10^6/uL (4.30-6.10); WHITE BLOOD COUNT 6.7 10^3/uL (4.0-10.0)
[2022-06-09 12:24] LABS: BLOOD UREA NITROGEN 30 MG/DL (9-23); CALCIUM LEVEL 8.7 MG/DL (8.3-10.6); CARBON DIOXIDE LEVEL 30 MMOL/L (20-31); CHLORIDE LEVEL 103 MMOL/L (98-107); CREATININE FOR GFR 0.59 MG/DL (0.70-1.30); GLOMERULAR FILTRATION RATE > 60.0 (>42); GLUCOSE, FASTING 102 MG/DL (74-106); POTASSIUM SERUM 4.2 MMOL/L (3.5-5.1); SODIUM LEVEL 137 MMOL/L (136-145)
== END ==
LOC: SKLAB4 11:01
PROVIDERS: ATTEND Nurse Practitioner Adult Health
DX: K92.1 Melena (principal)

== ENCOUNTER 2022-06-11 14:38 | Observation (INO) | payer MEDICARE ==
[~2022-06-11] VITALS: Ht 165.1 cm; Wt 107.1 kg
[~2022-06-11 14:38] MED LIST changes: -ACET-907 PO; -BISA10SU27 PR; -FLEEENE12 PR; -MILK400S12 PO
[2022-06-11] MEDS ORDERED: PANTOPRAZOLE 40MG VIAL IV ONE (15:40)
[2022-06-11 15:47] LABS: BASO # 0.1 10^3/uL (0.0-0.2); EOS # 0.6 10^3/uL (0.0-0.5); EOS % 8.3 % (0.0-3.0); HEMOGLOBIN 14.4 g/dl (13.5-17.5); LYMPH % 14.8 % (24.0-44.0); MEAN CORPUSCULAR HEMOGLOBIN 30.9 pg (27.0-33.0); MEAN CORPUSCULAR HGB CONC 34.3 g/dl (32.0-36.5); MEAN CORPUSCULAR VOLUME 90.1 fl (80.0-96.0); MONO # 0.9 10^3/uL (0.0-0.8); MONO % 13.5 % (2.0-8.0); NEUTROPHILS # 4.2 10^3/uL (1.5-8.5); NEUTROPHILS % 62.1 % (36.0-66.0); PLATELET COUNT, AUTOMATED 263 10^3/uL (150-450); RED BLOOD COUNT 4.66 10^6/uL (4.30-6.10); WHITE BLOOD COUNT 6.8 10^3/uL (4.0-10.0)
[2022-06-11 15:56] LABS: INR 1.08; PROTHROMBIN TIME 14.2 SECONDS (12.5-14.5)
[2022-06-11 15:57] LABS: PARTIAL THROMBOPLASTIN TIME 33.3 SECONDS (24.8-34.2)
[2022-06-11 16:03] LABS: LIPASE 52 U/L (12-53)
[2022-06-11 16:05] LABS: ALKALINE PHOSPHATASE 47 U/L (46-116); ALT/SGPT 16 U/L (7.0-40); AST/SGOT 19 U/L (<34); BILIRUBIN,DIRECT 0.1 MG/DL (<0.4); BILIRUBIN,TOTAL 0.4 MG/DL (0.3-1.2); BLOOD UREA NITROGEN 26 MG/DL (9-23); CALCIUM LEVEL 8.4 MG/DL (8.3-10.6); CARBON DIOXIDE LEVEL 26 MMOL/L (20-31); CHLORIDE LEVEL 103 MMOL/L (98-107); CREATININE FOR GFR 0.56 MG/DL (0.70-1.30); GLOMERULAR FILTRATION RATE > 60.0 (>42); GLUCOSE, FASTING 155 MG/DL (74-106); POTASSIUM SERUM 3.9 MMOL/L (3.5-5.1); SODIUM LEVEL 136 MMOL/L (136-145); TOTAL PROTEIN 6.2 G/DL (5.7-8.2)
[2022-06-11] MEDS ORDERED: ACETAMINOPHEN TAB 650MG DOSE (2X325MG) PO PRN (17:10)
[2022-06-11 17:28] LABS: RSV AMPLIFICATION NEGATIVE (NEGATIVE)
[2022-06-11 18:35] VITALS: BP 105/68
[2022-06-11] MEDS: MIRALAX *UNIT DOSE* 17GM PACKET PO SCH (20:37)
[2022-06-11 21:20] VITALS: BP 110/67
[2022-06-11] MEDS ORDERED: MILK400S12 PO (23:14)
[2022-06-11] MEDS ORDERED: ACET-907 PO (23:14)
[2022-06-11] MEDS ORDERED: BISA10SU27 PR (23:14)
[2022-06-11] MEDS ORDERED: FLEEENE12 PR (23:14)
[2022-06-11] MEDS ORDERED: HOME MED LIST COMPLETE! XX SCH (23:20)
[2022-06-12 05:40] VITALS: BP 119/65
[2022-06-12 06:40] LABS: HEMATOCRIT 41.7 % (42.0-52.0); HEMOGLOBIN 14.3 g/dl (13.5-17.5); MEAN CORPUSCULAR HEMOGLOBIN 30.6 pg (27.0-33.0); MEAN CORPUSCULAR HGB CONC 34.3 g/dl (32.0-36.5); MEAN CORPUSCULAR VOLUME 89.3 fl (80.0-96.0); PLATELET COUNT, AUTOMATED 228 10^3/uL (150-450); RED BLOOD COUNT 4.67 10^6/uL (4.30-6.10); WHITE BLOOD COUNT 6.5 10^3/uL (4.0-10.0)
[2022-06-12 06:57] LABS: ALBUMIN 2.9 G/DL (3.2-5.2); ALKALINE PHOSPHATASE 43 U/L (46-116); ALT/SGPT 16 U/L (7.0-40); AST/SGOT 19 U/L (<34); BILIRUBIN,TOTAL 0.6 MG/DL (0.3-1.2); BLOOD UREA NITROGEN 19 MG/DL (9-23); CALCIUM LEVEL 8.4 MG/DL (8.3-10.6); CARBON DIOXIDE LEVEL 28 MMOL/L (20-31); CHLORIDE LEVEL 104 MMOL/L (98-107); CREATININE FOR GFR 0.57 MG/DL (0.70-1.30); GLOMERULAR FILTRATION RATE > 60.0 (>42); GLUCOSE, FASTING 92 MG/DL (74-106); MAGNESIUM LEVEL 2.2 MG/DL (1.8-2.4); POTASSIUM SERUM 3.9 MMOL/L (3.5-5.1); SODIUM LEVEL 137 MMOL/L (136-145)
[2022-06-12] MEDS ORDERED: BISACODYL 10MG SUPP PR PRN (08:20)
[2022-06-12] MEDS: MIRALAX *UNIT DOSE* 17GM PACKET PO SCH (08:22)
[2022-06-12] MEDS ORDERED: levETIRAcetam 250MG TABLET (KEPPRA) PO SCH (09:00)
[2022-06-12] MEDS ORDERED: FOLIC ACID 1MG TAB PO SCH (09:00)
[2022-06-12] MEDS ORDERED: PANTOPRAZOLE 40MG VIAL IV SCH (09:00)
[2022-06-12] MEDS ORDERED: FUROSEMIDE 80 MG TAB PO SCH (09:00)
[2022-06-12] MEDS ORDERED: FUROSEMIDE 40 MG TAB PO SCH (14:00)
== END 2022-06-12 11:54 ==
LOC: M ED 14:38 → EDBD 14:38 → M ED INP 14:39 → M MSPAV 18:36
PROVIDERS: ADMIT Family Medicine; ATTEND Family Medicine
DX: K62.5 Hemorrhage of anus and rectum (principal); I50.30 Unspecified diastolic (congestive) heart failure; I11.9 Hypertensive heart disease without heart failure; Z86.718 Personal history of other venous thrombosis and embolism; I73.9 Peripheral vascular disease, unspecified; Z98.890 Other specified postprocedural states; Z86.010 Personal history of colon polyps; Z79.899 Other long term (current) drug therapy; Z79.01 Long term (current) use of anticoagulants; Z79.82 Long term (current) use of aspirin; Z88.0 Allergy status to penicillin; Z91.018 Allergy to other foods; K92.1 Melena
CPT/HCPCS: 36415; 80048; 80053; 80076; 83690; 83735; 85025; 85027; 85610; 85730; 86850; 86900; 86901; 87631; 93041; 96374; 96376; 99285; C9113; G0378

== ENCOUNTER → 2022-06-11 | Outpatient (REF) | payer MEDICARE ==
[~2022-06-11] MED LIST changes: +ACET-907 PO; +BISA10SU27 PR; +FLEEENE12 PR; +MILK400S12 PO
== END ==
LOC: SKLAB4 13:43
PROVIDERS: ATTEND Nurse Practitioner Adult Health
DX: K92.1 Melena (principal); Z53.8 Procedure and treatment not carried out for other reasons

== ENCOUNTER → 2022-06-16 | Outpatient (REF) | payer MEDICARE ==
[~2022-06-16] MED LIST changes: +ACET-907 PO; +BISA10SU27 PR; +FLEEENE12 PR; +MILK400S12 PO
[2022-06-16 08:29] LABS: HEMATOCRIT 45.2 % (42.0-52.0); HEMOGLOBIN 15.5 g/dl (13.5-17.5); MEAN CORPUSCULAR HEMOGLOBIN 30.9 pg (27.0-33.0); MEAN CORPUSCULAR HGB CONC 34.3 g/dl (32.0-36.5); PLATELET COUNT, AUTOMATED 227 10^3/uL (150-450); RED BLOOD COUNT 5.02 10^6/uL (4.30-6.10); WHITE BLOOD COUNT 6.1 10^3/uL (4.0-10.0)
[2022-06-16 08:59] LABS: BLOOD UREA NITROGEN 17 MG/DL (9-23); CALCIUM LEVEL 8.5 MG/DL (8.3-10.6); CARBON DIOXIDE LEVEL 26 MMOL/L (20-31); CHLORIDE LEVEL 104 MMOL/L (98-107); CREATININE FOR GFR 0.59 MG/DL (0.70-1.30); GLOMERULAR FILTRATION RATE > 60.0 (>42); GLUCOSE, FASTING 88 MG/DL (74-106); POTASSIUM SERUM 4.2 MMOL/L (3.5-5.1); SODIUM LEVEL 138 MMOL/L (136-145)
== END ==
LOC: SKLAB4 09:02
PROVIDERS: ATTEND Nurse Practitioner Adult Health
DX: I11.0 Hypertensive heart disease with heart failure (principal); I50.9 Heart failure, unspecified

== ENCOUNTER → 2022-07-14 | Outpatient (REF) | payer MEDICARE ==
[2022-07-14 07:35] LABS: HEMATOCRIT 43.1 % (42.0-52.0); HEMOGLOBIN 14.7 g/dl (13.5-17.5); MEAN CORPUSCULAR HEMOGLOBIN 30.5 pg (27.0-33.0); MEAN CORPUSCULAR HGB CONC 34.1 g/dl (32.0-36.5); MEAN CORPUSCULAR VOLUME 89.4 fl (80.0-96.0); PLATELET COUNT, AUTOMATED 246 10^3/uL (150-450); RED BLOOD COUNT 4.82 10^6/uL (4.30-6.10); WHITE BLOOD COUNT 6.7 10^3/uL (4.0-10.0)
[2022-07-14 08:04] LABS: BLOOD UREA NITROGEN 24 MG/DL (9-23); CALCIUM LEVEL 8.3 MG/DL (8.3-10.6); CARBON DIOXIDE LEVEL 26 MMOL/L (20-31); CHLORIDE LEVEL 104 MMOL/L (98-107); CREATININE FOR GFR 0.62 MG/DL (0.70-1.30); GLOMERULAR FILTRATION RATE > 60.0 (>42); GLUCOSE, FASTING 84 MG/DL (74-106); POTASSIUM SERUM 4.3 MMOL/L (3.5-5.1); SODIUM LEVEL 138 MMOL/L (136-145)
== END ==
LOC: SKLAB4 09:02
PROVIDERS: ATTEND Nurse Practitioner Adult Health
DX: I11.0 Hypertensive heart disease with heart failure (principal); I50.9 Heart failure, unspecified

== ENCOUNTER → 2022-08-18 | Outpatient (REF) | payer MEDICARE ==
[2022-08-18 08:06] LABS: HEMATOCRIT 46.5 % (42.0-52.0); HEMOGLOBIN 15.7 g/dl (13.5-17.5); MEAN CORPUSCULAR HEMOGLOBIN 29.8 pg (27.0-33.0); MEAN CORPUSCULAR HGB CONC 33.8 g/dl (32.0-36.5); MEAN CORPUSCULAR VOLUME 88.4 fl (80.0-96.0); PLATELET COUNT, AUTOMATED 208 10^3/uL (150-450); RED BLOOD COUNT 5.26 10^6/uL (4.30-6.10); WHITE BLOOD COUNT 6.6 10^3/uL (4.0-10.0)
[2022-08-18 08:25] LABS: BLOOD UREA NITROGEN 20 MG/DL (9-23); CALCIUM LEVEL 9.2 MG/DL (8.3-10.6); CARBON DIOXIDE LEVEL 28 MMOL/L (20-31); CHLORIDE LEVEL 102 MMOL/L (98-107); CREATININE FOR GFR 0.66 MG/DL (0.70-1.30); GLOMERULAR FILTRATION RATE > 60.0 (>42); GLUCOSE, FASTING 76 MG/DL (74-106); POTASSIUM SERUM 3.9 MMOL/L (3.5-5.1); SODIUM LEVEL 138 MMOL/L (136-145)
== END ==
LOC: SKLAB4 08:39
PROVIDERS: ATTEND Nurse Practitioner Adult Health
DX: I11.0 Hypertensive heart disease with heart failure (principal); I50.9 Heart failure, unspecified; G40.909 Epilepsy, unspecified, not intractable, without status epilepticus

== ENCOUNTER → 2022-10-13 | Outpatient (REF) | payer MEDICARE ==
[2022-10-13 08:25] LABS: HEMATOCRIT 43.9 % (42.0-52.0); HEMOGLOBIN 15.3 g/dl (13.5-17.5); MEAN CORPUSCULAR HEMOGLOBIN 30.7 pg (27.0-33.0); MEAN CORPUSCULAR HGB CONC 34.9 g/dl (32.0-36.5); PLATELET COUNT, AUTOMATED 213 10^3/uL (150-450); RED BLOOD COUNT 4.99 10^6/uL (4.30-6.10); WHITE BLOOD COUNT 5.9 10^3/uL (4.0-10.0)
[2022-10-13 09:06] LABS: BLOOD UREA NITROGEN 23 MG/DL (9-23); CALCIUM LEVEL 8.7 MG/DL (8.3-10.6); CARBON DIOXIDE LEVEL 26 MMOL/L (20-31); CHLORIDE LEVEL 106 MMOL/L (98-107); CREATININE FOR GFR 0.57 MG/DL (0.70-1.30); GLOMERULAR FILTRATION RATE > 60.0 (>42); GLUCOSE, FASTING 83 MG/DL (74-106); POTASSIUM SERUM 4.2 MMOL/L (3.5-5.1); SODIUM LEVEL 140 MMOL/L (136-145)
== END ==
LOC: SKLAB4 10:16
PROVIDERS: ATTEND Nurse Practitioner Adult Health
DX: I11.0 Hypertensive heart disease with heart failure (principal); I50.9 Heart failure, unspecified

== ENCOUNTER → 2022-11-17 | Outpatient (REF) | payer MEDICARE ==
[2022-11-17 08:38] LABS: HEMATOCRIT 44.7 % (42.0-52.0); HEMOGLOBIN 15.4 g/dl (13.5-17.5); MEAN CORPUSCULAR HEMOGLOBIN 30.1 pg (27.0-33.0); MEAN CORPUSCULAR HGB CONC 34.5 g/dl (32.0-36.5); MEAN CORPUSCULAR VOLUME 87.5 fl (80.0-96.0); PLATELET COUNT, AUTOMATED 202 10^3/uL (150-450); RED BLOOD COUNT 5.11 10^6/uL (4.30-6.10); WHITE BLOOD COUNT 5.9 10^3/uL (4.0-10.0)
[2022-11-17 09:11] LABS: BLOOD UREA NITROGEN 19 MG/DL (9-23); CALCIUM LEVEL 8.5 MG/DL (8.3-10.6); CARBON DIOXIDE LEVEL 27 MMOL/L (20-31); CHLORIDE LEVEL 104 MMOL/L (98-107); CREATININE FOR GFR 0.56 MG/DL (0.70-1.30); GLOMERULAR FILTRATION RATE > 60.0 (>42); GLUCOSE, FASTING 80 MG/DL (74-106); POTASSIUM SERUM 4.1 MMOL/L (3.5-5.1); SODIUM LEVEL 139 MMOL/L (136-145)
== END ==
LOC: SKLAB4 08:07
PROVIDERS: ATTEND Nurse Practitioner Adult Health
DX: I50.9 Heart failure, unspecified (principal)

== ENCOUNTER → 2022-12-15 | Outpatient (REF) | payer MEDICARE ==
[2022-12-15 09:16] LABS: HEMATOCRIT 45.3 % (42.0-52.0); HEMOGLOBIN 15.9 g/dl (13.5-17.5); MEAN CORPUSCULAR HEMOGLOBIN 31.2 pg (27.0-33.0); MEAN CORPUSCULAR HGB CONC 35.1 g/dl (32.0-36.5); PLATELET COUNT, AUTOMATED 215 10^3/uL (150-450); RED BLOOD COUNT 5.09 10^6/uL (4.30-6.10); WHITE BLOOD COUNT 5.7 10^3/uL (4.0-10.0)
[2022-12-15 10:00] LABS: BLOOD UREA NITROGEN 19 MG/DL (9-23); CALCIUM LEVEL 8.7 MG/DL (8.3-10.6); CARBON DIOXIDE LEVEL 27 MMOL/L (20-31); CHLORIDE LEVEL 103 MMOL/L (98-107); CREATININE FOR GFR 0.54 MG/DL (0.70-1.30); GLOMERULAR FILTRATION RATE > 60.0 (>42); GLUCOSE, FASTING 102 MG/DL (74-106); POTASSIUM SERUM 4.3 MMOL/L (3.5-5.1); SODIUM LEVEL 139 MMOL/L (136-145)
== END ==
LOC: SKLAB4 07:00
PROVIDERS: ATTEND Nurse Practitioner Adult Health
DX: I11.0 Hypertensive heart disease with heart failure (principal); I50.9 Heart failure, unspecified; G40.909 Epilepsy, unspecified, not intractable, without status epilepticus

== ENCOUNTER → 2023-01-12 | Outpatient (REF) | payer MEDICARE ==
[2023-01-12 07:47] LABS: HEMATOCRIT 43.7 % (42.0-52.0); HEMOGLOBIN 15.3 g/dl (13.5-17.5); MEAN CORPUSCULAR VOLUME 88.5 fl (80.0-96.0); PLATELET COUNT, AUTOMATED 222 10^3/uL (150-450); RED BLOOD COUNT 4.94 10^6/uL (4.30-6.10); WHITE BLOOD COUNT 5.3 10^3/uL (4.0-10.0)
[2023-01-12 07:59] LABS: BLOOD UREA NITROGEN 20 MG/DL (9-23); CALCIUM LEVEL 8.5 MG/DL (8.3-10.6); CARBON DIOXIDE LEVEL 28 MMOL/L (20-31); CHLORIDE LEVEL 105 MMOL/L (98-107); CREATININE FOR GFR 0.52 MG/DL (0.70-1.30); GLOMERULAR FILTRATION RATE > 60.0 (>42); GLUCOSE, FASTING 101 MG/DL (74-106); POTASSIUM SERUM 4.1 MMOL/L (3.5-5.1); SODIUM LEVEL 140 MMOL/L (136-145)
== END ==
LOC: SKLAB4 09:23
PROVIDERS: ATTEND Nurse Practitioner Adult Health
DX: I11.0 Hypertensive heart disease with heart failure (principal); I50.9 Heart failure, unspecified

== ENCOUNTER → 2023-02-16 | Outpatient (REF) | payer MEDICARE ==
[2023-02-16 07:30] LABS: HEMATOCRIT 44.7 % (42.0-52.0); HEMOGLOBIN 15.5 g/dl (13.5-17.5); MEAN CORPUSCULAR HGB CONC 34.7 g/dl (32.0-36.5); MEAN CORPUSCULAR VOLUME 89.4 fl (80.0-96.0); PLATELET COUNT, AUTOMATED 212 10^3/uL (150-450); WHITE BLOOD COUNT 5.9 10^3/uL (4.0-10.0)
[2023-02-16 07:59] LABS: BLOOD UREA NITROGEN 19 MG/DL (9-23); CALCIUM LEVEL 8.4 MG/DL (8.3-10.6); CARBON DIOXIDE LEVEL 27 MMOL/L (20-31); CHLORIDE LEVEL 108 MMOL/L (98-107); CREATININE FOR GFR 0.54 MG/DL (0.70-1.30); GLOMERULAR FILTRATION RATE > 60.0 (>42); GLUCOSE, FASTING 86 MG/DL (74-106); POTASSIUM SERUM 4.1 MMOL/L (3.5-5.1); SODIUM LEVEL 142 MMOL/L (136-145)
== END ==
LOC: SKLAB4 12:00
PROVIDERS: ATTEND Nurse Practitioner Adult Health
DX: I11.0 Hypertensive heart disease with heart failure (principal); I50.9 Heart failure, unspecified

== ENCOUNTER → 2023-03-16 | Outpatient (REF) | payer MEDICARE ==
[2023-03-16 08:30] LABS: HEMATOCRIT 43.8 % (42.0-52.0); HEMOGLOBIN 15.3 g/dl (13.5-17.5); MEAN CORPUSCULAR HGB CONC 34.9 g/dl (32.0-36.5); MEAN CORPUSCULAR VOLUME 88.8 fl (80.0-96.0); PLATELET COUNT, AUTOMATED 219 10^3/uL (150-450); RED BLOOD COUNT 4.93 10^6/uL (4.30-6.10); WHITE BLOOD COUNT 5.7 10^3/uL (4.0-10.0)
[2023-03-16 08:53] LABS: BLOOD UREA NITROGEN 22 MG/DL (9-23); CALCIUM LEVEL 8.4 MG/DL (8.3-10.6); CARBON DIOXIDE LEVEL 26 MMOL/L (20-31); CHLORIDE LEVEL 106 MMOL/L (98-107); CREATININE FOR GFR 0.61 MG/DL (0.70-1.30); GLOMERULAR FILTRATION RATE > 60.0 (>42); GLUCOSE, FASTING 76 MG/DL (74-106); POTASSIUM SERUM 4.1 MMOL/L (3.5-5.1); SODIUM LEVEL 139 MMOL/L (136-145)
== END ==
LOC: SKLAB4 10:38
PROVIDERS: ATTEND Nurse Practitioner Adult Health
DX: I11.0 Hypertensive heart disease with heart failure (principal); I50.9 Heart failure, unspecified

== ENCOUNTER → 2023-04-20 | Outpatient (REF) | payer MEDICARE ==
[2023-04-20 09:17] LABS: HEMATOCRIT 45.1 % (42.0-52.0); HEMOGLOBIN 15.7 g/dl (13.5-17.5); MEAN CORPUSCULAR HEMOGLOBIN 31.2 pg (27.0-33.0); MEAN CORPUSCULAR HGB CONC 34.8 g/dl (32.0-36.5); MEAN CORPUSCULAR VOLUME 89.5 fl (80.0-96.0); PLATELET COUNT, AUTOMATED 237 10^3/uL (150-450); RED BLOOD COUNT 5.04 10^6/uL (4.30-6.10); WHITE BLOOD COUNT 6.8 10^3/uL (4.0-10.0)
[2023-04-20 09:40] LABS: BLOOD UREA NITROGEN 22 MG/DL (9-23); CALCIUM LEVEL 8.5 MG/DL (8.3-10.6); CARBON DIOXIDE LEVEL 27 MMOL/L (20-31); CHLORIDE LEVEL 104 MMOL/L (98-107); CREATININE FOR GFR 0.61 MG/DL (0.70-1.30); GLOMERULAR FILTRATION RATE > 60.0 (>42); GLUCOSE, FASTING 79 MG/DL (74-106); POTASSIUM SERUM 3.8 MMOL/L (3.5-5.1); SODIUM LEVEL 137 MMOL/L (136-145)
== END ==
LOC: SKLAB4 09:45
PROVIDERS: ATTEND Nurse Practitioner Adult Health
DX: I11.0 Hypertensive heart disease with heart failure (principal); I50.9 Heart failure, unspecified; R56.9 Unspecified convulsions

== ENCOUNTER → 2023-05-18 | Outpatient (REF) | payer MEDICARE ==
[2023-05-18 11:57] LABS: HEMATOCRIT 42.9 % (42.0-52.0); HEMOGLOBIN 14.8 g/dl (13.5-17.5); MEAN CORPUSCULAR HEMOGLOBIN 30.6 pg (27.0-33.0); MEAN CORPUSCULAR HGB CONC 34.5 g/dl (32.0-36.5); MEAN CORPUSCULAR VOLUME 88.6 fl (80.0-96.0); PLATELET COUNT, AUTOMATED 209 10^3/uL (150-450); RED BLOOD COUNT 4.84 10^6/uL (4.30-6.10); WHITE BLOOD COUNT 5.5 10^3/uL (4.0-10.0)
[2023-05-18 12:30] LABS: BLOOD UREA NITROGEN 17 MG/DL (9-23); CALCIUM LEVEL 8.5 MG/DL (8.3-10.6); CARBON DIOXIDE LEVEL 30 MMOL/L (20-31); CHLORIDE LEVEL 105 MMOL/L (98-107); CREATININE FOR GFR 0.52 MG/DL (0.70-1.30); GLOMERULAR FILTRATION RATE > 60.0 (>42); GLUCOSE, FASTING 105 MG/DL (74-106); POTASSIUM SERUM 4.1 MMOL/L (3.5-5.1); SODIUM LEVEL 139 MMOL/L (136-145)
== END ==
LOC: SKLAB4 13:59
PROVIDERS: ATTEND Nurse Practitioner Adult Health
DX: I11.0 Hypertensive heart disease with heart failure (principal); I50.9 Heart failure, unspecified

== ENCOUNTER → 2023-06-15 | Outpatient (REF) | payer MEDICARE ==
[2023-06-15 12:43] LABS: HEMATOCRIT 43.2 % (42.0-52.0); HEMOGLOBIN 15.3 g/dl (13.5-17.5); MEAN CORPUSCULAR HEMOGLOBIN 31.5 pg (27.0-33.0); MEAN CORPUSCULAR HGB CONC 35.4 g/dl (32.0-36.5); MEAN CORPUSCULAR VOLUME 88.9 fl (80.0-96.0); PLATELET COUNT, AUTOMATED 207 10^3/uL (150-450); RED BLOOD COUNT 4.86 10^6/uL (4.30-6.10); WHITE BLOOD COUNT 6.2 10^3/uL (4.0-10.0)
[2023-06-15 13:10] LABS: BLOOD UREA NITROGEN 23 MG/DL (9-23); CALCIUM LEVEL 8.7 MG/DL (8.3-10.6); CARBON DIOXIDE LEVEL 30 MMOL/L (20-31); CHLORIDE LEVEL 105 MMOL/L (98-107); CREATININE FOR GFR 0.57 MG/DL (0.70-1.30); GLOMERULAR FILTRATION RATE > 60.0 (>42); GLUCOSE, FASTING 97 MG/DL (74-106); POTASSIUM SERUM 4.1 MMOL/L (3.5-5.1); SODIUM LEVEL 137 MMOL/L (136-145)
== END ==
LOC: SKLAB4 07:00
PROVIDERS: ATTEND Nurse Practitioner Adult Health
DX: I11.0 Hypertensive heart disease with heart failure (principal); I50.9 Heart failure, unspecified

== ENCOUNTER → 2023-08-18 | Outpatient (REF) | payer MEDICARE ==
[2023-08-18 07:02] LABS: HEMATOCRIT 41.9 % (42.0-52.0); HEMOGLOBIN 14.4 g/dl (13.5-17.5); MEAN CORPUSCULAR HEMOGLOBIN 30.8 pg (27.0-33.0); MEAN CORPUSCULAR HGB CONC 34.4 g/dl (32.0-36.5); MEAN CORPUSCULAR VOLUME 89.5 fl (80.0-96.0); PLATELET COUNT, AUTOMATED 223 10^3/uL (150-450); RED BLOOD COUNT 4.68 10^6/uL (4.30-6.10); WHITE BLOOD COUNT 8.8 10^3/uL (4.0-10.0)
[2023-08-18 07:33] LABS: BLOOD UREA NITROGEN 20 MG/DL (9-23); CALCIUM LEVEL 8.5 MG/DL (8.3-10.6); CARBON DIOXIDE LEVEL 29 MMOL/L (20-31); CHLORIDE LEVEL 105 MMOL/L (98-107); GLOMERULAR FILTRATION RATE > 60.0 (>42); GLUCOSE, FASTING 90 MG/DL (74-106); SODIUM LEVEL 138 MMOL/L (136-145)
== END ==
LOC: SKLAB4 07:00
PROVIDERS: ATTEND Internal Medicine
DX: I11.0 Hypertensive heart disease with heart failure (principal); I50.9 Heart failure, unspecified; G40.909 Epilepsy, unspecified, not intractable, without status epilepticus; Z79.899 Other long term (current) drug therapy

== ENCOUNTER → 2023-10-13 | Outpatient (REF) | payer MEDICARE ==
[2023-10-13 00:39] LABS: HEMATOCRIT 44.7 % (42.0-52.0); HEMOGLOBIN 15.2 g/dl (13.5-17.5); MEAN CORPUSCULAR VOLUME 88.2 fl (80.0-96.0); PLATELET COUNT, AUTOMATED 208 10^3/uL (150-450); RED BLOOD COUNT 5.07 10^6/uL (4.30-6.10); WHITE BLOOD COUNT 8.9 10^3/uL (4.0-10.0)
[2023-10-13 00:52] LABS: BLOOD UREA NITROGEN 17 MG/DL (9-23); CALCIUM LEVEL 8.3 MG/DL (8.3-10.6); CARBON DIOXIDE LEVEL 28 MMOL/L (20-31); CHLORIDE LEVEL 104 MMOL/L (98-107); GLOMERULAR FILTRATION RATE > 60.0 (>42); GLUCOSE, FASTING 165 MG/DL (74-106); POTASSIUM SERUM 3.9 MMOL/L (3.5-5.1); SODIUM LEVEL 138 MMOL/L (136-145)
== END ==
LOC: SKLAB4 10-12 19:00
PROVIDERS: ATTEND Nurse Practitioner Adult Health
DX: U07.1 COVID-19 (principal); Z79.899 Other long term (current) drug therapy

== ENCOUNTER → 2023-10-14 | Outpatient (REF) | payer MEDICARE | LOC: SKLAB4 12:02 | PROVIDERS: ATTEND Internal Medicine | DX: J98.11 Atelectasis (principal) ==

== ENCOUNTER → 2023-11-24 | Outpatient (REF) | payer MEDICARE | LOC: EEVIPCON 12:16 → SKLAB4 12:16 | PROVIDERS: ATTEND Internal Medicine | DX: S81.801A Unspecified open wound, right lower leg, initial encounter (principal); X58.XXXA Exposure to other specified factors, initial encounter; Y92.9 Unspecified place or not applicable; Y93.9 Activity, unspecified; Y99.9 Unspecified external cause status ==

== ENCOUNTER → 2023-12-15 | Outpatient (REF) | payer MEDICARE ==
[2023-12-15 11:13] LABS: HEMATOCRIT 47.3 % (42.0-52.0); HEMOGLOBIN 15.9 g/dl (13.5-17.5); MEAN CORPUSCULAR HEMOGLOBIN 30.4 pg (27.0-33.0); MEAN CORPUSCULAR HGB CONC 33.6 g/dl (32.0-36.5); MEAN CORPUSCULAR VOLUME 90.4 fl (80.0-96.0); PLATELET COUNT, AUTOMATED 214 10^3/uL (150-450); RED BLOOD COUNT 5.23 10^6/uL (4.30-6.10); WHITE BLOOD COUNT 6.6 10^3/uL (4.0-10.0)
[2023-12-15 11:38] LABS: BLOOD UREA NITROGEN 23 MG/DL (9-23); CALCIUM LEVEL 9.2 MG/DL (8.3-10.6); CARBON DIOXIDE LEVEL 29 MMOL/L (20-31); CHLORIDE LEVEL 105 MMOL/L (98-107); CREATININE FOR GFR 0.62 MG/DL (0.70-1.30); GLOMERULAR FILTRATION RATE > 60.0 (>42); GLUCOSE, FASTING 112 MG/DL (74-106); POTASSIUM SERUM 3.9 MMOL/L (3.5-5.1); SODIUM LEVEL 141 MMOL/L (136-145)
== END ==
LOC: SKLAB4 07:00
PROVIDERS: ATTEND Internal Medicine
DX: I50.9 Heart failure, unspecified (principal); I11.0 Hypertensive heart disease with heart failure; G40.909 Epilepsy, unspecified, not intractable, without status epilepticus

== ENCOUNTER → 2023-12-22 | Outpatient (REF) | payer MEDICARE ==
[2023-12-22 10:49] LABS: HEMATOCRIT 42.8 % (42.0-52.0); HEMOGLOBIN 14.8 g/dl (13.5-17.5); MEAN CORPUSCULAR HEMOGLOBIN 30.6 pg (27.0-33.0); MEAN CORPUSCULAR HGB CONC 34.6 g/dl (32.0-36.5); MEAN CORPUSCULAR VOLUME 88.4 fl (80.0-96.0); PLATELET COUNT, AUTOMATED 217 10^3/uL (150-450); RED BLOOD COUNT 4.84 10^6/uL (4.30-6.10); WHITE BLOOD COUNT 6.6 10^3/uL (4.0-10.0)
[2023-12-22 11:12] LABS: BLOOD UREA NITROGEN 20 MG/DL (9-23); CALCIUM LEVEL 8.8 MG/DL (8.3-10.6); CARBON DIOXIDE LEVEL 28 MMOL/L (20-31); CHLORIDE LEVEL 106 MMOL/L (98-107); CREATININE FOR GFR 0.57 MG/DL (0.70-1.30); GLOMERULAR FILTRATION RATE > 60.0 (>42); GLUCOSE, FASTING 114 MG/DL (74-106); POTASSIUM SERUM 4.3 MMOL/L (3.5-5.1); SODIUM LEVEL 138 MMOL/L (136-145)
== END ==
LOC: SKLAB4 09:27
PROVIDERS: ATTEND Internal Medicine
DX: J06.9 Acute upper respiratory infection, unspecified (principal); R05.9 Cough, unspecified; R06.2 Wheezing

== ENCOUNTER → 2024-04-09 | Outpatient (REF) | LOC: SKLAB4 18:56 | PROVIDERS: ATTEND Internal Medicine | DX: D72.829 Elevated white blood cell count, unspecified (principal); Z53.9 Procedure and treatment not carried out, unspecified reason ==

== ENCOUNTER → 2024-04-09 | Outpatient (REF) | payer MEDICARE, MEDICAID ==
[2024-04-09 15:35] LABS: HEMATOCRIT 42.8 % (42.0-52.0); MEAN CORPUSCULAR HEMOGLOBIN 30.2 pg (27.0-33.0); MEAN CORPUSCULAR VOLUME 86.3 fl (80.0-96.0); PLATELET COUNT, AUTOMATED 309 10^3/uL (150-450); RED BLOOD COUNT 4.96 10^6/uL (4.30-6.10); WHITE BLOOD COUNT 13.8 10^3/uL (4.0-10.0)
[2024-04-09 15:50] LABS: BLOOD UREA NITROGEN 71 MG/DL (9-23); CALCIUM LEVEL 8.1 MG/DL (8.3-10.6); CARBON DIOXIDE LEVEL 28 MMOL/L (20-31); CHLORIDE LEVEL 91 MMOL/L (98-107); CREATININE FOR GFR 1.01 MG/DL (0.70-1.30); GLOMERULAR FILTRATION RATE > 60.0 (>42); GLUCOSE, FASTING 126 MG/DL (74-106); POTASSIUM SERUM 3.6 MMOL/L (3.5-5.1); SODIUM LEVEL 130 MMOL/L (136-145)
[2024-04-09 19:45] LABS: APPEARANCE, URINE CLEAR (CLEAR); BACTERIA, URINE AUTO NEGATIVE (NEGATIVE); BILIRUBIN, URINE AUTO NEGATIVE (NEGATIVE); BLOOD, URINE BLOOD NEGATIVE (NEGATIVE); COLOR, URINE YELLOW (YELLOW); GLUCOSE, URINE (UA) AUTO NEGATIVE (NEGATIVE); KETONE, URINE AUTO NEGATIVE (NEGATIVE); LEUKOCYTE ESTERASE, URINE AUTO NEGATIVE (NEGATIVE); NITRITE, URINE AUTO NEGATIVE (NEGATIVE); PROTEIN, URINE AUTO NEGATIVE (NEGATIVE); RBC, URINE AUTO 0 /HPF (0-3); SQUAMOUS EPITHELIAL CELL UR AU 0 /HPF (0-6); UROBILINOGEN, URINE AUTO 0.2 mg/dL (0.0-2.0); WBC, URINE AUTO 0 /HPF (0-3)
== END ==
LOC: SKLAB4 14:31
PROVIDERS: ATTEND Internal Medicine
DX: R41.82 Altered mental status, unspecified (principal)

== ENCOUNTER → 2024-04-12 | Outpatient (REF) | payer MEDICARE, MEDICAID ==
[2024-04-12 07:15] LABS: HEMATOCRIT 45.3 % (42.0-52.0); HEMOGLOBIN 15.9 g/dl (13.5-17.5); MEAN CORPUSCULAR HEMOGLOBIN 30.4 pg (27.0-33.0); MEAN CORPUSCULAR HGB CONC 35.1 g/dl (32.0-36.5); MEAN CORPUSCULAR VOLUME 86.6 fl (80.0-96.0); PLATELET COUNT, AUTOMATED 308 10^3/uL (150-450); RED BLOOD COUNT 5.23 10^6/uL (4.30-6.10); WHITE BLOOD COUNT 11.5 10^3/uL (4.0-10.0)
[2024-04-12 07:44] LABS: CALCIUM LEVEL 8.9 MG/DL (8.3-10.6); CREATININE FOR GFR 1.33 MG/DL (0.70-1.30)
== END ==
LOC: SKLAB4 07:00
PROVIDERS: ATTEND Internal Medicine
DX: E87.1 Hypo-osmolality and hyponatremia (principal); D72.829 Elevated white blood cell count, unspecified

== ENCOUNTER → 2024-04-17 | Outpatient (REF) | payer MEDICARE, MEDICAID ==
[2024-04-17 08:39] LABS: HEMATOCRIT 45.5 % (42.0-52.0); HEMOGLOBIN 15.5 g/dl (13.5-17.5); MEAN CORPUSCULAR HEMOGLOBIN 30.2 pg (27.0-33.0); MEAN CORPUSCULAR HGB CONC 34.1 g/dl (32.0-36.5); MEAN CORPUSCULAR VOLUME 88.7 fl (80.0-96.0); PLATELET COUNT, AUTOMATED 292 10^3/uL (150-450); RED BLOOD COUNT 5.13 10^6/uL (4.30-6.10); WHITE BLOOD COUNT 11.2 10^3/uL (4.0-10.0)
[2024-04-17 09:10] LABS: BLOOD UREA NITROGEN 81 MG/DL (9-23); CALCIUM LEVEL 9.1 MG/DL (8.3-10.6); CARBON DIOXIDE LEVEL 25 MMOL/L (20-31); CHLORIDE LEVEL 95 MMOL/L (98-107); CREATININE FOR GFR 1.11 MG/DL (0.70-1.30); GLOMERULAR FILTRATION RATE > 60.0 (>42); GLUCOSE, FASTING 90 MG/DL (74-106); POTASSIUM SERUM 3.7 MMOL/L (3.5-5.1); SODIUM LEVEL 135 MMOL/L (136-145)
== END ==
LOC: SKLAB4 07:00
PROVIDERS: ATTEND Internal Medicine
DX: G40.909 Epilepsy, unspecified, not intractable, without status epilepticus (principal); I50.9 Heart failure, unspecified; I11.0 Hypertensive heart disease with heart failure

== ENCOUNTER → 2024-04-25 | Outpatient (REF) | payer MEDICARE, MEDICAID ==
[2024-04-25 06:27] LABS: HEMATOCRIT 38.6 % (42.0-52.0); HEMOGLOBIN 13.2 g/dl (13.5-17.5); MEAN CORPUSCULAR HEMOGLOBIN 30.3 pg (27.0-33.0); MEAN CORPUSCULAR HGB CONC 34.2 g/dl (32.0-36.5); MEAN CORPUSCULAR VOLUME 88.5 fl (80.0-96.0); PLATELET COUNT, AUTOMATED 196 10^3/uL (150-450); RED BLOOD COUNT 4.36 10^6/uL (4.30-6.10); WHITE BLOOD COUNT 7.3 10^3/uL (4.0-10.0)
[2024-04-25 06:58] LABS: CREATININE FOR GFR 2.09 MG/DL (0.70-1.30); GLOMERULAR FILTRATION RATE 33.2 (>42); POTASSIUM SERUM 3.7 MMOL/L (3.5-5.1)
== END ==
LOC: SKLAB4 07:00
PROVIDERS: ATTEND Internal Medicine
DX: E87.1 Hypo-osmolality and hyponatremia (principal)

== ENCOUNTER → 2024-04-27 | Outpatient (REF) | payer MEDICARE, MEDICAID ==
[2024-04-27 11:28] LABS: HEMATOCRIT 42.1 % (42.0-52.0); HEMOGLOBIN 14.6 g/dl (13.5-17.5); MEAN CORPUSCULAR HEMOGLOBIN 30.4 pg (27.0-33.0); MEAN CORPUSCULAR HGB CONC 34.7 g/dl (32.0-36.5); MEAN CORPUSCULAR VOLUME 87.7 fl (80.0-96.0); PLATELET COUNT, AUTOMATED 221 10^3/uL (150-450); WHITE BLOOD COUNT 6.4 10^3/uL (4.0-10.0)
[2024-04-27 12:06] LABS: BLOOD UREA NITROGEN 78 MG/DL (9-23); CALCIUM LEVEL 9.3 MG/DL (8.3-10.6); CARBON DIOXIDE LEVEL 29 MMOL/L (20-31); CHLORIDE LEVEL 98 MMOL/L (98-107); CREATININE FOR GFR 0.82 MG/DL (0.70-1.30); GLOMERULAR FILTRATION RATE > 60.0 (>42); GLUCOSE, FASTING 144 MG/DL (74-106); SODIUM LEVEL 139 MMOL/L (136-145)
== END ==
LOC: SKLAB4 07:00
PROVIDERS: ATTEND Internal Medicine
DX: N17.9 Acute kidney failure, unspecified (principal)

== ENCOUNTER 2024-05-03 10:02 | Inpatient (IN) | payer MEDICARE, MEDICAID ==
[~2024-05-03] VITALS: Ht 165.1 cm; Wt 111.5 kg
[2024-05-03] MEDS: ASPIRIN 81MG CHEW TABLET PO SCH (09:00)
[2024-05-03] MEDS: FOLIC ACID 1MG TAB PO SCH (09:00)
[2024-05-03] MEDS: LIDOCAINE 2% 5ML JELLY UROJET TOP ONE (10:29)
[2024-05-03 10:50] LABS: BASO # 0.1 10^3/uL (0.0-0.2); BASO % 0.4 % (0.0-1.0); EOS # 0.4 10^3/uL (0.0-0.5); EOS % 2.9 % (0.0-3.0); HEMATOCRIT 38.2 % (42.0-52.0); HEMOGLOBIN 13.2 g/dl (13.5-17.5); LYMPH # 0.8 10^3/uL (1.5-5.0); LYMPH % 6.1 % (24.0-44.0); MEAN CORPUSCULAR HEMOGLOBIN 30.7 pg (27.0-33.0); MEAN CORPUSCULAR HGB CONC 34.6 g/dl (32.0-36.5); MEAN CORPUSCULAR VOLUME 88.8 fl (80.0-96.0); MONO # 1.5 10^3/uL (0.0-0.8); NEUTROPHILS # 9.6 10^3/uL (1.5-8.5); NEUTROPHILS % 77.5 % (36.0-66.0); PLATELET COUNT, AUTOMATED 338 10^3/uL (150-450); WHITE BLOOD COUNT 12.4 10^3/uL (4.0-10.0)
[2024-05-03 11:17] LABS: INR 1.19; PARTIAL THROMBOPLASTIN TIME 32.8 SECONDS (24.8-34.2); PROTHROMBIN TIME 15.4 SECONDS (12.5-14.5)
[2024-05-03 11:22] LABS: BILIRUBIN,DIRECT 0.3 MG/DL (<0.4); BILIRUBIN,TOTAL 0.7 MG/DL (0.3-1.2); C REACTIVE PROTEIN QUANTITATIV 16.75 MG/DL (<1.0); CALCIUM LEVEL 9.3 MG/DL (8.3-10.6); CREATININE FOR GFR 4.38 MG/DL (0.70-1.30); GLOMERULAR FILTRATION RATE 14.1 (>42); TOTAL PROTEIN 7.2 G/DL (5.7-8.2)
[2024-05-03 11:33] LABS: PROCALCITONIN 0.61 ng/ml
[2024-05-03] MEDS: NS (Normal Saline) 0.9% 1,000 ML IV ONE ×2 (11:37→18:32)
[2024-05-03 11:56] LABS: APPEARANCE, URINE HAZY (CLEAR); BACTERIA, URINE AUTO NEGATIVE (NEGATIVE); BILIRUBIN, URINE AUTO NEGATIVE (NEGATIVE); BLOOD, URINE BLOOD NEGATIVE (NEGATIVE); COLOR, URINE YELLOW (YELLOW); GLUCOSE, URINE (UA) AUTO NEGATIVE (NEGATIVE); KETONE, URINE AUTO NEGATIVE (NEGATIVE); LEUKOCYTE ESTERASE, URINE AUTO TRACE (NEGATIVE); MUCUS, URINE SMALL (NEGATIVE); NITRITE, URINE AUTO NEGATIVE (NEGATIVE); PROTEIN, URINE AUTO 1+ mg/dL (NEGATIVE); RBC, URINE AUTO 6 /HPF (0-3); SPECIFIC GRAVITY URINE AUTO 1.015 (1.002-1.035); SQUAMOUS EPITHELIAL CELL UR AU 0 /HPF (0-6); UROBILINOGEN, URINE AUTO 0.2 mg/dL (0.0-2.0); WBC, URINE AUTO 8 /HPF (0-3)
[2024-05-03] MEDS ORDERED: MORP1SOL4 PO (14:20)
[2024-05-03] MEDS ORDERED: LISI5TAB11 PO (14:20)
[2024-05-03] MEDS ORDERED: TRAM50TA2 PO (14:20)
[2024-05-03] MEDS ORDERED: METO5TA PO (14:20)
[2024-05-03] MEDS ORDERED: IPRA0.00 INH (14:20)
[2024-05-03] MEDS ORDERED: MORP20SO PO (14:20)
[2024-05-03] MEDS ORDERED: HOME MED LIST COMPLETE! XX SCH (14:25)
[2024-05-03] MEDS ORDERED: MOM 30ML SUSPENSION UDC PO PRN (15:05)
[2024-05-03] MEDS ORDERED: BISACODYL 10MG SUPP PR PRN (15:05)
[2024-05-03] MEDS: NS (Normal Saline) 0.9% 2,000 ML IV ONE (15:11)
[2024-05-03] MEDS: MIDODRINE 5 MG TAB PO ONE (15:11)
[2024-05-03 16:32] VITALS: BP 134/61; TEMP 97.4; O2SAT 96
[2024-05-03] MEDS: cefTRIAXone SOD 2 GM in DEXTROSE 5% (D5W) ADV/MINI-BAG 50 ML IV SCH (16:41)
[2024-05-03 18:29] VITALS: BP 121/72
[2024-05-03] MEDS ORDERED: ACETAMINOPHEN 325 MG TAB PO PRN (18:30)
[2024-05-03] MEDS ORDERED: MIRALAX *UNIT DOSE* 17GM PACKET PO PRN (18:30)
[2024-05-03] MEDS ORDERED: IPRATROPIUM 0.5MG/ALBUTEROL 2.5MG INH SOL UD 3ML (DUONEB) NEB PRN (18:30)
[2024-05-03] MEDS: BISACODYL 5MG TAB PO ONE (18:39)
[2024-05-03 20:13] VITALS: BP 106/57; TEMP 97.5; O2SAT 92
[2024-05-03] MEDS: DOXYCYCLINE HYCLATE 100MG TABLET PO SCH (20:22)
[2024-05-03] MEDS: SENOKOT S TAB PO SCH (20:22)
[2024-05-03] MEDS: levETIRAcetam 250MG TABLET (KEPPRA) PO SCH (20:22)
[2024-05-03] MEDS: LATANOPROST 0.005% OPHTH SOLN 2.5 ML OU SCH (20:22)
[2024-05-03] MEDS: NS (Normal Saline) 0.9% 1,000 ML IV SCH (20:27)
[2024-05-03] MEDS: ONDANSETRON 4MG 2ML VIAL IV PRN (20:37)
[2024-05-03 22:16] LABS: CALCIUM LEVEL 8.3 MG/DL (8.3-10.6); CREATININE FOR GFR 2.03 MG/DL (0.70-1.30); GLOMERULAR FILTRATION RATE 34.3 (>42); POTASSIUM SERUM 4.8 MMOL/L (3.5-5.1)
[2024-05-03 22:17] VITALS: BP 106/58
[2024-05-03 23:28] VITALS: BP 102/57; TEMP 97; O2SAT 93
[2024-05-04] VITALS (7 sets, daily range): BP systolic 96–128; BP diastolic 52–83; TEMP 97.2–98.6; O2SAT 87–96
[2024-05-04] MEDS: BISACODYL 5MG TAB PO ONE (06:46)
[2024-05-04] MEDS: SENOKOT S TAB PO ONE (06:46)
[2024-05-04] MEDS: MIRALAX *UNIT DOSE* 17GM PACKET PO ONE (06:46)
[2024-05-04] MEDS: MIDODRINE 5 MG TAB PO ONE (06:47)
[2024-05-04 07:10] LABS: HEMATOCRIT 38.1 % (42.0-52.0); HEMOGLOBIN 12.9 g/dl (13.5-17.5); MEAN CORPUSCULAR HEMOGLOBIN 30.3 pg (27.0-33.0); MEAN CORPUSCULAR HGB CONC 33.9 g/dl (32.0-36.5); MEAN CORPUSCULAR VOLUME 89.4 fl (80.0-96.0); PLATELET COUNT, AUTOMATED 336 10^3/uL (150-450); RED BLOOD COUNT 4.26 10^6/uL (4.30-6.10)
[2024-05-04 07:26] LABS: CALCIUM LEVEL 8.6 MG/DL (8.3-10.6); CREATININE FOR GFR 1.55 MG/DL (0.70-1.30); GLOMERULAR FILTRATION RATE 46.9 (>42); POTASSIUM SERUM 4.8 MMOL/L (3.5-5.1)
[2024-05-04] MEDS ORDERED: BISACODYL 5MG TAB PO SCH (09:00)
[2024-05-04] MEDS: ACETAMINOPHEN 325 MG TAB PO PRN (21:41)
[2024-05-05 04:30] VITALS: BP 116/79; TEMP 98.4; O2SAT 88
[2024-05-05 06:31] LABS: HEMATOCRIT 39.5 % (42.0-52.0); HEMOGLOBIN 13.3 g/dl (13.5-17.5); MEAN CORPUSCULAR HEMOGLOBIN 30.4 pg (27.0-33.0); MEAN CORPUSCULAR HGB CONC 33.7 g/dl (32.0-36.5); MEAN CORPUSCULAR VOLUME 90.2 fl (80.0-96.0); PLATELET COUNT, AUTOMATED 328 10^3/uL (150-450); RED BLOOD COUNT 4.38 10^6/uL (4.30-6.10); WHITE BLOOD COUNT 9.8 10^3/uL (4.0-10.0)
[2024-05-05 07:01] LABS: BLOOD UREA NITROGEN 86 MG/DL (9-23); CALCIUM LEVEL 9.1 MG/DL (8.3-10.6); CARBON DIOXIDE LEVEL 27 MMOL/L (20-31); CHLORIDE LEVEL 105 MMOL/L (98-107); GLOMERULAR FILTRATION RATE > 60.0 (>42); GLUCOSE, FASTING 99 MG/DL (74-106); SODIUM LEVEL 142 MMOL/L (136-145)
[2024-05-05] MEDS: CEFDINIR 300 MG CAP (OMNICEF) PO SCH (09:21)
[2024-05-05 12:00] VITALS: BP 116/77; TEMP 98.4; O2SAT 95
[2024-05-05 21:28] VITALS: BP 155/88; TEMP 97.9; O2SAT 92
[2024-05-06 04:30] VITALS: BP 133/81; TEMP 98.4; O2SAT 94
[2024-05-06 08:47] LABS: HEMATOCRIT 39.7 % (42.0-52.0); HEMOGLOBIN 13.6 g/dl (13.5-17.5); MEAN CORPUSCULAR HEMOGLOBIN 30.1 pg (27.0-33.0); MEAN CORPUSCULAR HGB CONC 34.3 g/dl (32.0-36.5); MEAN CORPUSCULAR VOLUME 87.8 fl (80.0-96.0); PLATELET COUNT, AUTOMATED 353 10^3/uL (150-450); RED BLOOD COUNT 4.52 10^6/uL (4.30-6.10)
[2024-05-06 09:16] LABS: BLOOD UREA NITROGEN 48 MG/DL (9-23); CALCIUM LEVEL 9.1 MG/DL (8.3-10.6); CARBON DIOXIDE LEVEL 27 MMOL/L (20-31); CHLORIDE LEVEL 107 MMOL/L (98-107); CREATININE FOR GFR 0.75 MG/DL (0.70-1.30); GLOMERULAR FILTRATION RATE > 60.0 (>42); GLUCOSE, FASTING 91 MG/DL (74-106); POTASSIUM SERUM 3.4 MMOL/L (3.5-5.1); SODIUM LEVEL 145 MMOL/L (136-145)
[2024-05-06 12:00] VITALS: BP 138/77; TEMP 97.1; O2SAT 94
[2024-05-07 03:44] VITALS: BP 131/74; TEMP 98.6; O2SAT 95
[2024-05-07 06:00] LABS: HEMATOCRIT 37.3 % (42.0-52.0); HEMOGLOBIN 12.9 g/dl (13.5-17.5); MEAN CORPUSCULAR HEMOGLOBIN 30.4 pg (27.0-33.0); MEAN CORPUSCULAR HGB CONC 34.6 g/dl (32.0-36.5); MEAN CORPUSCULAR VOLUME 87.8 fl (80.0-96.0); PLATELET COUNT, AUTOMATED 320 10^3/uL (150-450); RED BLOOD COUNT 4.25 10^6/uL (4.30-6.10); WHITE BLOOD COUNT 10.9 10^3/uL (4.0-10.0)
[2024-05-07 06:28] LABS: BLOOD UREA NITROGEN 28 MG/DL (9-23); CALCIUM LEVEL 8.6 MG/DL (8.3-10.6); CARBON DIOXIDE LEVEL 28 MMOL/L (20-31); CHLORIDE LEVEL 104 MMOL/L (98-107); CREATININE FOR GFR 0.66 MG/DL (0.70-1.30); GLOMERULAR FILTRATION RATE > 60.0 (>42); GLUCOSE, FASTING 97 MG/DL (74-106); POTASSIUM SERUM 3.3 MMOL/L (3.5-5.1); SODIUM LEVEL 141 MMOL/L (136-145)
[2024-05-07] MEDS ORDERED: MIRA3350 PO (09:21)
[2024-05-07] MEDS ORDERED: DULC10SU2 PR (09:21)
[2024-05-07] MEDS ORDERED: SENO8.6T10 PO (09:21)
[2024-05-07] MEDS ORDERED: CEFD300CAP PO (09:24)
[2024-05-07] MEDS ORDERED: DOXY100T PO (09:24)
[2024-05-07] MEDS: POTASSIUM CHLORIDE 10MEQ SR TABLET PO ONE (10:42)
== END 2024-05-07 12:53 | DRG 682 ==
LOC: M ED 10:02 → EDBD 10:02 → M ED INP 12:39 → M PCU 16:27 → M MSPAV 05-04 15:09
PROVIDERS: ADMIT General Practice; ATTEND General Practice
DX: N17.9 Acute kidney failure, unspecified (principal); G93.41 Metabolic encephalopathy; J18.9 Pneumonia, unspecified organism; I50.32 Chronic diastolic (congestive) heart failure; E87.1 Hypo-osmolality and hyponatremia; L97.218 Non-pressure chronic ulcer of right calf with other specified severity; L97.228 Non-pressure chronic ulcer of left calf with other specified severity; J98.11 Atelectasis; G20.A1 Parkinson's disease without dyskinesia, without mention of fluctuations; I11.0 Hypertensive heart disease with heart failure; G47.33 Obstructive sleep apnea (adult) (pediatric); E66.9 Obesity, unspecified; G40.909 Epilepsy, unspecified, not intractable, without status epilepticus; M17.0 Bilateral primary osteoarthritis of knee; H40.9 Unspecified glaucoma; I87.2 Venous insufficiency (chronic) (peripheral); R32 Unspecified urinary incontinence; N40.1 Benign prostatic hyperplasia with lower urinary tract symptoms; I95.2 Hypotension due to drugs; E86.1 Hypovolemia; E86.0 Dehydration; D64.9 Anemia, unspecified; N40.0 Benign prostatic hyperplasia without lower urinary tract symptoms; Z66 Do not resuscitate; K56.41 Fecal impaction; Z79.82 Long term (current) use of aspirin; Z79.891 Long term (current) use of opiate analgesic; Z79.899 Other long term (current) drug therapy; Z88.0 Allergy status to penicillin; Z91.018 Allergy to other foods; I73.9 Peripheral vascular disease, unspecified; Z90.49 Acquired absence of other specified parts of digestive tract

== ENCOUNTER → 2024-05-31 | Outpatient (REF) | payer MEDICARE, MEDICAID ==
[~2024-05-31] MED LIST changes: +CEFD300CAP PO; +DOXY100T PO; +DULC10SU2 PR; +IPRA0.00 INH; +LISI5TAB11 PO; +METO5TA PO; +MIRA3350 PO; +MORP1SOL4 PO; +MORP20SO PO; +SENO8.6T10 PO; +TRAM50TA2 PO
[2024-05-31 06:52] LABS: HEMOGLOBIN 12.6 g/dl (13.5-17.5); MEAN CORPUSCULAR HEMOGLOBIN 30.7 pg (27.0-33.0); MEAN CORPUSCULAR HGB CONC 34.1 g/dl (32.0-36.5); MEAN CORPUSCULAR VOLUME 90.2 fl (80.0-96.0); PLATELET COUNT, AUTOMATED 237 10^3/uL (150-450)
[2024-05-31 07:25] LABS: BLOOD UREA NITROGEN 10 MG/DL (9-23); CALCIUM LEVEL 8.2 MG/DL (8.3-10.6); CARBON DIOXIDE LEVEL 27 MMOL/L (20-31); CHLORIDE LEVEL 109 MMOL/L (98-107); CREATININE FOR GFR 0.58 MG/DL (0.70-1.30); GLOMERULAR FILTRATION RATE > 60.0 (>42); GLUCOSE, FASTING 88 MG/DL (74-106); POTASSIUM SERUM 3.8 MMOL/L (3.5-5.1); SODIUM LEVEL 143 MMOL/L (136-145)
== END ==
LOC: SKLAB4 07:00
PROVIDERS: ATTEND Internal Medicine
DX: L03.90 Cellulitis, unspecified (principal)

== ENCOUNTER → 2024-08-23 | Outpatient (REF) | payer MEDICARE, MEDICAID ==
[2024-08-23 08:09] LABS: HEMATOCRIT 41.5 % (42.0-52.0); HEMOGLOBIN 13.9 g/dl (13.5-17.5); MEAN CORPUSCULAR HEMOGLOBIN 29.5 pg (27.0-33.0); MEAN CORPUSCULAR HGB CONC 33.5 g/dl (32.0-36.5); MEAN CORPUSCULAR VOLUME 88.1 fl (80.0-96.0); PLATELET COUNT, AUTOMATED 182 10^3/uL (150-450); RED BLOOD COUNT 4.71 10^6/uL (4.30-6.10)
[2024-08-23 08:26] LABS: BLOOD UREA NITROGEN 16 MG/DL (9-23); CALCIUM LEVEL 8.5 MG/DL (8.3-10.6); CARBON DIOXIDE LEVEL 27 MMOL/L (20-31); CHLORIDE LEVEL 107 MMOL/L (98-107); CREATININE FOR GFR 0.56 MG/DL (0.70-1.30); GLOMERULAR FILTRATION RATE > 90.0 (>42); GLUCOSE, FASTING 97 MG/DL (74-106); POTASSIUM SERUM 3.9 MMOL/L (3.5-5.1); SODIUM LEVEL 143 MMOL/L (136-145)
== END ==
LOC: SKLAB4 07:00
PROVIDERS: ATTEND Internal Medicine
DX: I50.9 Heart failure, unspecified (principal); Z51.81 Encounter for therapeutic drug level monitoring; Z79.899 Other long term (current) drug therapy

== ENCOUNTER → 2024-12-11 | Outpatient (REF) | payer MEDICARE, MEDICAID ==
[2024-12-11 10:45] LABS: PLATELET COUNT, AUTOMATED 201 10^3/uL (150-450)
[2024-12-11 11:13] LABS: ALT/SGPT 13 U/L (7.0-40); AST/SGOT 20 U/L (<34); CALCIUM LEVEL 8.7 MG/DL (8.3-10.6); CARBON DIOXIDE LEVEL 26 MMOL/L (20-31); CHLORIDE LEVEL 105 MMOL/L (98-107); CREATININE FOR GFR 0.64 MG/DL (0.70-1.30); GLOMERULAR FILTRATION RATE > 90.0 (>42); POTASSIUM SERUM 3.6 MMOL/L (3.5-5.1); SODIUM LEVEL 142 MMOL/L (136-145)
== END ==
LOC: SKLAB4 09:09
PROVIDERS: ATTEND Family Medicine
DX: R09.02 Hypoxemia (principal); R50.9 Fever, unspecified

== ENCOUNTER → 2024-12-12 | Outpatient (REF) | payer MEDICARE, MEDICAID ==
[2024-12-12 10:39] LABS: BASO # 0.1 10^3/uL (0.0-0.2); BASO % 0.4 % (0.0-1.0); EOS # 0.0 10^3/uL (0.0-0.5); EOS % 0.2 % (0.0-3.0); LYMPH # 0.4 10^3/uL (1.5-5.0); LYMPH % 2.7 % (24.0-44.0); MONO # 1.0 10^3/uL (0.0-0.8); MONO % 8.0 % (2.0-8.0); NEUTROPHILS # 11.5 10^3/uL (1.5-8.5); NEUTROPHILS % 88.1 % (36.0-66.0); PLATELET COUNT, AUTOMATED 161 10^3/uL (150-450)
[2024-12-12 11:08] LABS: CALCIUM LEVEL 7.9 MG/DL (8.3-10.6); CARBON DIOXIDE LEVEL 26 MMOL/L (20-31); CHLORIDE LEVEL 102 MMOL/L (98-107); CREATININE FOR GFR 0.57 MG/DL (0.70-1.30); GLOMERULAR FILTRATION RATE > 90.0 (>42); POTASSIUM SERUM 3.4 MMOL/L (3.5-5.1); SODIUM LEVEL 140 MMOL/L (136-145)
== END ==
LOC: SKLAB4 07:00
PROVIDERS: ATTEND Family Medicine
DX: L03.90 Cellulitis, unspecified (principal)

== ENCOUNTER → 2024-12-14 | Outpatient (REF) | payer MEDICARE, MEDICAID ==
[2024-12-14 08:31] LABS: PLATELET COUNT, AUTOMATED 179 10^3/uL (150-450)
[2024-12-14 08:44] LABS: CALCIUM LEVEL 7.7 MG/DL (8.3-10.6); CARBON DIOXIDE LEVEL 27 MMOL/L (20-31); CHLORIDE LEVEL 105 MMOL/L (98-107); CREATININE FOR GFR 0.58 MG/DL (0.70-1.30); GLOMERULAR FILTRATION RATE > 90.0 (>42); POTASSIUM SERUM 3.7 MMOL/L (3.5-5.1); SODIUM LEVEL 141 MMOL/L (136-145)
== END ==
LOC: SKLAB4 07:00
PROVIDERS: ATTEND Family Medicine
DX: L03.90 Cellulitis, unspecified (principal)

== ENCOUNTER → 2024-12-27 | Outpatient (REF) | payer MEDICARE, MEDICAID ==
[2024-12-27 09:43] LABS: PLATELET COUNT, AUTOMATED 250 10^3/uL (150-450)
[2024-12-27 10:01] LABS: CALCIUM LEVEL 8.6 MG/DL (8.3-10.6); CARBON DIOXIDE LEVEL 25 MMOL/L (20-31); CHLORIDE LEVEL 108 MMOL/L (98-107); CREATININE FOR GFR 0.60 MG/DL (0.70-1.30); GLOMERULAR FILTRATION RATE > 90.0 (>42); POTASSIUM SERUM 3.9 MMOL/L (3.5-5.1); SODIUM LEVEL 146 MMOL/L (136-145)
== END ==
LOC: SKLAB4 07:00
PROVIDERS: ATTEND Family Medicine
DX: I50.9 Heart failure, unspecified (principal)